=== PATIENT | male | born 1945 | race Caucasian/White ===

== ENCOUNTER → 2017-03-14 | Outpatient (CLI) | payer MEDICARE ==
[~2017-03-14] VITALS: Ht 167.6 cm; Wt 79.4 kg
[~2017-03-14] MED LIST: ALLO15TA PO; ALLO300T; ASPI1TAB PO; BABY81CH; ENAL10TA2; ENAL5TAB PO; NS 1,000 ML IV ONE; PROPOFOL 200 MG/20 ML VIAL As Ordered ONE; RED YEAST RICE; SIMV40TA2; SIMV40TA2 PO; VITA400C29 PO
--- NOTE | 2017-03-14 15:20 | ROOR ---
Patient Name: Juan Oates Procedure Date: 03/14/2017 3:08 PM Date of : 1945 Age: 71 Room: [facility] Gender: Male Note Status: Finalized Procedure: Colonoscopy to Cecum Indications: Colon cancer screening in patient at increased risk: Colorectal cancer in father Providers: Dusty Dukes MD Referring MD: ERASMO ENG JR, MD Requesting Provider: Medicines: Monitored Anesthesia Care Complications: No immediate complications. Procedure: Pre-Anesthesia Assessment: - The heart rate, respiratory rate, oxygen saturations, blood pressure, adequacy of pulmonary ventilation, and response to care were monitored throughout the procedure. The Colonoscope was introduced through the anus and advanced to the cecum, identified by appendiceal orifice and ileocecal valve. The colonoscopy was performed without difficulty. The patient tolerated the procedure well. The quality of the bowel preparation was excellent. Findings: The perianal and digital rectal examinations were normal. Non-bleeding internal hemorrhoids were found during retroflexion. The hemorrhoids were small and Grade I (internal hemorrhoids that do not prolapse). Scattered small-mouthed diverticula were found in the recto-sigmoid colon, sigmoid colon and descending colon. The exam was otherwise without abnormality on direct and retroflexion views. Impression: - Non-bleeding internal hemorrhoids. - Diverticulosis in the recto-sigmoid colon, in the sigmoid colon and in the descending colon. - The examination was otherwise normal on direct and retroflexion views. - No specimens collected. - The exam was otherwise normal to the cecum. Recommendation: - Patient has a contact number available for emergencies. The signs and symptoms of potential delayed complications were discussed with the patient. Return to normal activities tomorrow. Written discharge instructions were provided to the patient. - High fiber diet. - Discharge patient to home. - Continue present medications. - Repeat colonoscopy in 5 years for screening purposes. - Return to referring physician. - The findings and recommendations were discussed with the patient's family. Dusty Dukes MD Dusty Dukes MD 03/14/2017 3:20:16 PM This report has been signed electronically. Number of Addenda: 0 Note Initiated On: 03/14/2017 3:08 PM Estimated Blood Loss: Estimated blood loss: none.
[2017-03-14 15:45] VITALS: BP 143/70
== END | disposition home or self-care (01) ==
LOC: M OPP 13:19
PROVIDERS: ATTEND Internal Medicine Gastroenterology
DX: Z12.11 Encounter for screening for malignant neoplasm of colon (principal); K64.0 First degree hemorrhoids; K57.30 Diverticulosis of large intestine without perforation or abscess without bleeding; Z80.0 Family history of malignant neoplasm of digestive organs; I12.9 Hypertensive chronic kidney disease with stage 1 through stage 4 chronic kidney disease, or unspecified chronic kidney disease; E78.5 Hyperlipidemia, unspecified; N18.9 Chronic kidney disease, unspecified; Z79.82 Long term (current) use of aspirin; Z79.899 Other long term (current) drug therapy

== ENCOUNTER 2018-06-02 21:04 | Emergency (ER) | payer OTHER, MEDICARE ==
[2018-06-02] MEDS ORDERED: ADENOSINE 6MG/2ML INJECTION (J0153) As Ordered ×3 (21:16→21:26)
[2018-06-02] MEDS: ADENOSINE 6MG/2ML INJECTION (J0153) IV ×3 (21:20→21:28)
[2018-06-02] MEDS ORDERED: METOPROLOL 5 MG/5 ML VIAL As Ordered (21:24)
[2018-06-02] MEDS: METOPROLOL 5 MG/5 ML VIAL IV ×2 (21:31→21:44)
[2018-06-02 21:51] LABS: BASO % 0.3 % (0.0-1.0); EOS # 0.1 10^3/uL (0.0-0.50); EOS % 0.9 % (0.0-3.0); HEMATOCRIT 44.7 % (42.0-52.0); HEMOGLOBIN 14.9 g/dl (13.5-17.5); IMMATURE GRANULOCYTE % 0.3 % (0-3.0); LYMPH # 1.3 10^3/uL (1.5-4.5); LYMPH % 18.9 % (24.0-44.0); MEAN CORPUSCULAR HEMOGLOBIN 29.6 pg (27.0-33.0); MEAN CORPUSCULAR HGB CONC 33.3 g/dl (32.0-36.5); MEAN CORPUSCULAR VOLUME 88.7 fl (80.0-96.0); MONO # 0.8 10^3/uL (0.0-0.8); MONO % 12.1 % (0.0-5.0); NEUTROPHILS # 4.7 10^3/uL (1.8-7.7); NEUTROPHILS % 67.5 % (36.0-66.0); PLATELET COUNT, AUTOMATED 176 10^3/uL (150-450); RED BLOOD COUNT 5.04 10^6/uL (4.30-6.10); RED CELL DISTRIBUTION WIDTH 12.3 % (11.5-14.5); WHITE BLOOD COUNT 6.9 10^3/uL (4.0-10.0)
[2018-06-02] MEDS: METOPROLOL TART 50 MG TAB PO (21:52)
[2018-06-02 21:57] LABS: ANION GAP 9 MEQ/L (8-16); BLOOD UREA NITROGEN 34 MG/DL (7-18); CALCIUM LEVEL 9.6 MG/DL (8.8-10.2); CARBON DIOXIDE LEVEL 27 MEQ/L (21-32); CHLORIDE LEVEL 105 MEQ/L (98-107); CPK CREATINE PHOSPHOKINASE 70 U/L (39-308); CREATININE FOR GFR 2.39 MG/DL (0.70-1.30); FREE THYROXINE INDEX 2.6 % (1.4-3.8); GLOMERULAR FILTRATION RATE 28.5 (>42); GLUCOSE, FASTING 110 MG/DL (70-100); POTASSIUM SERUM 3.7 MEQ/L (3.5-5.1); SODIUM LEVEL 141 MEQ/L (136-145); T UPTAKE 32 % (33-40); TROPONIN I 0.05 NG/ML (< 0.10)
[2018-06-02 22:02] LABS: CK-MB VALUE MASS 1.7 NG/ML (<3.6); MB/CK RELATIVE INDEX 2.42 (< OR =4)
[2018-06-02] MEDS ORDERED: METOPROLOL 5 MG/5 ML VIAL IV (22:14)
[2018-06-02] MEDS ORDERED: AMIODARONE 150MG/3ML INJ (J0282) IVP (22:17)
[2018-06-02] MEDS: METOPROLOL TART 25 MG TABLET PO (22:34)
== END 2018-06-03 00:31 | disposition home or self-care (01) ==
LOC: M ED 06-03 00:31
DX: I47.1 Supraventricular tachycardia (principal); I48.91 Unspecified atrial fibrillation; E78.5 Hyperlipidemia, unspecified; N28.9 Disorder of kidney and ureter, unspecified; Z86.73 Personal history of transient ischemic attack (TIA), and cerebral infarction without residual deficits; Z79.899 Other long term (current) drug therapy
CPT/HCPCS: J0153

== ENCOUNTER → 2018-06-11 | Outpatient (REF) | payer OTHER ==
[2018-06-11 18:31] LABS: TOTAL PROTEIN 6.9 GM/DL (6.4-8.2)
[2018-06-11 18:35] LABS: TOTAL PROTEIN,RANDOM URINE 40.5 MG/DL (0.0-12.0); TOTAL PROTEIN,RANDOM URINE 40.7 MG/DL (0.0-12.0); URINE TOTAL PROTEIN 40.5 MG/DL (0-12)
[2018-06-12 12:07] LABS: ALBUMIN 3.94 GM/DL (3.29-5.55); ALBUMIN % 57.1 % (55.8-66.1); ALPHA-1-GLOBULIN % 4.5 % (2.9-4.9); ALPHA-1-GLOBULINS 0.31 GM/DL (0.17-0.41); ALPHA-2-GLOBULINS 0.86 GM/DL (0.42-0.99); ALPHA-2-GLOBULINS % 12.5 % (7.1-11.8); BETA-1-GLOBULINS 0.44 GM/DL (0.28-0.60); BETA-1-GLOBULINS % 6.4 % (4.7-7.2); BETA-2-GLOBULINS 0.35 GM/DL (0.19-0.55); BETA-2-GLOBULINS % 5.1 % (3.2-6.5); GAMMA GLOBULIN % 14.4 % (11.1-18.8); GAMMA GLOBULINS 0.99 GM/DL (0.65-1.58)
[2018-06-13 15:02] LABS: UPEP INTERPRETATION NO M-SPIKE NOTED; URINE VOLUME RANDOM ML
[2018-06-14 00:07] LABS: FREE KAPPA LIGHT CHAINS SERUM 36.3 mg/L (3.3-19.4); FREE LAMBDA LIGHT CHAINS SERUM 30.7 mg/L (5.7-26.3); KAPPA/LAMBDA RATIO SERUM 1.18 (0.26-1.65)
== END ==
LOC: M LAB REF 17:44
DX: N18.4 Chronic kidney disease, stage 4 (severe) (principal); R80.9 Proteinuria, unspecified
CPT/HCPCS: 84165

== ENCOUNTER → 2018-08-13 | Outpatient (REF) | payer OTHER ==
[2018-08-13 14:11] LABS: BACTERIA, URINE AUTO NEGATIVE (NEGATIVE); RBC, URINE AUTO 1 /HPF (0-3); SQUAMOUS EPITHELIAL CELL UR AU 0 /HPF (0-6); WBC, URINE AUTO 3 /HPF (0-3)
[2018-08-13 14:38] LABS: TOTAL PROTEIN,RANDOM URINE 34.9 MG/DL (0.0-12.0)
== END ==
LOC: M LAB REF 12:59
DX: N18.4 Chronic kidney disease, stage 4 (severe) (principal)
CPT/HCPCS: 84156

== ENCOUNTER → 2018-09-10 | Outpatient (REF) | payer OTHER ==
[2018-09-10 19:28] LABS: HEMATOCRIT 41.1 % (42.0-52.0); HEMOGLOBIN 13.5 g/dl (13.5-17.5); MEAN CORPUSCULAR HGB CONC 32.8 g/dl (32.0-36.5); MEAN CORPUSCULAR VOLUME 88.4 fl (80.0-96.0); PLATELET COUNT, AUTOMATED 166 10^3/uL (150-450); RED BLOOD COUNT 4.65 10^6/uL (4.30-6.10); RED CELL DISTRIBUTION WIDTH 15.2 % (11.5-14.5); WHITE BLOOD COUNT 4.9 10^3/uL (4.0-10.0)
[2018-09-10 19:40] LABS: ALBUMIN 3.8 GM/DL (3.2-5.2); ALBUMIN/GLOBULIN RATIO 1.19 (1.00-1.93); ALKALINE PHOSPHATASE 84 U/L (45-117); ALT/SGPT 29 U/L (12-78); ANION GAP 7 MEQ/L (8-16); AST/SGOT 28 U/L (7-37); BILIRUBIN,TOTAL 0.6 MG/DL (0.2-1.0); BLOOD UREA NITROGEN 34 MG/DL (7-18); CALCIUM LEVEL 9.6 MG/DL (8.8-10.2); CARBON DIOXIDE LEVEL 28 MEQ/L (21-32); CHLORIDE LEVEL 105 MEQ/L (98-107); CREATININE FOR GFR 2.19 MG/DL (0.70-1.30); GLOMERULAR FILTRATION RATE 31.6 (>42); GLUCOSE, FASTING 141 MG/DL (70-100); POTASSIUM SERUM 4.2 MEQ/L (3.5-5.1); SODIUM LEVEL 140 MEQ/L (136-145)
== END ==
LOC: M LABDRAWC 18:04
DX: I11.0 Hypertensive heart disease with heart failure (principal); I50.9 Heart failure, unspecified
CPT/HCPCS: 80053

== ENCOUNTER → 2018-09-30 | Outpatient (REF) | payer OTHER ==
[2018-09-30 12:40] LABS: URIC ACID 6.5 MG/DL (3.5-7.2)
== END ==
LOC: M LAB REF 11:54
DX: N18.3 Chronic kidney disease, stage 3 (moderate) (principal)
CPT/HCPCS: 84550

== ENCOUNTER → 2018-11-07 | Outpatient (REF) | payer MEDICARE, OTHER ==
[~2018-11-07] MED LIST changes: +LOPR1TAB6 PO; -NS 1,000 ML IV ONE; -PROPOFOL 200 MG/20 ML VIAL As Ordered ONE; +VITA-110 PO; -VITA400C29 PO; +XARE15TA PO
[2018-11-07 20:00] LABS: ALBUMIN 3.5 GM/DL (3.2-5.2); CALCIUM LEVEL 9.2 MG/DL (8.8-10.2); CREATININE FOR GFR 2.26 MG/DL (0.70-1.30); GLOMERULAR FILTRATION RATE 30.4 (>42); PHOSPHORUS LEVEL 4.2 MG/DL (2.5-4.9); POTASSIUM SERUM 4.5 MEQ/L (3.5-5.1)
== END ==
LOC: M LABDRAWC 18:52
PROVIDERS: ATTEND Internal Medicine Cardiovascular Disease
DX: I50.42 Chronic combined systolic (congestive) and diastolic (congestive) heart failure (principal); N19 Unspecified kidney failure

== ENCOUNTER 2019-06-20 03:31 | Emergency (ER) | payer MEDICARE ==
[~2019-06-20] VITALS: Ht 167.6 cm; Wt 71.4 kg
[~2019-06-20 03:31] MED LIST changes: -ALLO15TA PO; +ALLO300T2 PO; -ASPI1TAB PO; +ASPI81TA26 PO
[2019-06-20] MEDS ORDERED: ASPI81TA85 PO (03:45)
[2019-06-20] MEDS ORDERED: BISO5TAB9 PO (03:45)
[2019-06-20] MEDS ORDERED: DIGO0.12 PO (03:45)
[2019-06-20] MEDS ORDERED: AUGM875T28 PO ×2 (03:45→06:21)
[2019-06-20] MEDS ORDERED: ATOR80TA59 PO (03:45)
[2019-06-20 04:21] LABS: BASO % 0.5 % (0.0-1.0); EOS # 0.1 10^3/uL (0.0-0.50); HEMATOCRIT 42.3 % (42.0-52.0); HEMOGLOBIN 13.4 g/dl (13.5-17.5); MEAN CORPUSCULAR HEMOGLOBIN 29.3 pg (27.0-33.0); MEAN CORPUSCULAR HGB CONC 31.7 g/dl (32.0-36.5); MEAN CORPUSCULAR VOLUME 92.6 fl (80.0-96.0); MONO # 0.4 10^3/uL (0.0-0.8); MONO % 6.8 % (0.0-5.0); NEUTROPHILS # 4.5 10^3/uL (1.8-7.7); NEUTROPHILS % 74.4 % (36.0-66.0); PLATELET COUNT, AUTOMATED 149 10^3/uL (150-450); RED BLOOD COUNT 4.57 10^6/uL (4.30-6.10)
[2019-06-20 04:32] LABS: INR 2.32; PROTHROMBIN TIME 25.3 SECONDS (11.8-14.0)
[2019-06-20 05:01] LABS: CALCIUM LEVEL 8.6 MG/DL (8.8-10.2); CREATININE FOR GFR 2.22 MG/DL (0.70-1.30); DIGOXIN LEVEL 0.3 NG/ML (0.5-2.0); POTASSIUM SERUM 4.6 MEQ/L (3.5-5.1)
[2019-06-20] MEDS ORDERED: SILVER NITRATE APPLICATOR As Ordered ONE (08:23)
[2019-06-20 09:18] VITALS: BP 116/70
== END 2019-06-20 09:19 | disposition home or self-care (01) ==
LOC: M ED 03:31
DX: R04.0 Epistaxis (principal); N18.9 Chronic kidney disease, unspecified; I48.91 Unspecified atrial fibrillation; Z79.899 Other long term (current) drug therapy; Z79.82 Long term (current) use of aspirin; Z79.01 Long term (current) use of anticoagulants

== ENCOUNTER 2019-07-03 12:01 | Day surgery (SDC) | payer MEDICARE ==
[~2019-07-03] VITALS: Ht 167.6 cm; Wt 70.8 kg
[~2019-07-03 12:01] MED LIST changes: +ASPI81TA85 PO; +ATOR80TA59 PO; +AUGM875T28 PO; +BISO5TAB9 PO; +DIGO0.12 PO
[2019-07-03] MEDS ORDERED: NEOSPORIN TOP OINT 15GM As Ordered ONE (12:23)
[2019-07-03] MEDS ORDERED: MUPI2OI (12:33)
[2019-07-03] MEDS ORDERED: ROCURONIUM BROMIDE 50 MG/5 ML VIAL As Ordered ONE (12:41)
[2019-07-03] MEDS ORDERED: LIDOCAINE 2% INJ 100 MG/5 ML SDV (FOR ANES.) As Ordered ONE (12:41)
[2019-07-03] MEDS ORDERED: PROPOFOL 200 MG/20 ML VIAL As Ordered ONE (12:41)
[2019-07-03] MEDS ORDERED: fentaNYL 100 MCG/2 ML INJECTION (J3010) As Ordered ONE ×2 (12:43→14:22)
[2019-07-03] MEDS ORDERED: ONDANSETRON 4MG/2ML VIAL (J2405) As Ordered ONE (12:44)
[2019-07-03] MEDS ORDERED: dexameTHASONE 4 MG/ML 1ML VIAL (J1100) As Ordered ONE (13:15)
[2019-07-03] MEDS ORDERED: EPINEPHrine INJ 1 MG/ML 1ML AMP As Ordered ONE (13:25)
[2019-07-03] MEDS ORDERED: METHYLENE BLUE 0.5% (5MG/ML) 10 ML AMP (PROVAYBLUE)(Q9968 PER 1MG) As Ordered ONE (13:26)
[2019-07-03] MEDS ORDERED: EPINEPHrine 1MG/ML INJ 30ML MD-VIAL As Ordered ONE (13:26)
[2019-07-03] MEDS ORDERED: SUGAMMADEX SODIUM 500 MG/5 ML VIAL (BRIDION) As Ordered ONE (13:31)
[2019-07-03] MEDS ORDERED: LIDOCAINE W/EPINEPHRINE 1% 20ML VIAL As Ordered ONE (13:36)
[2019-07-03] MEDS: fentaNYL 100 MCG/2 ML INJECTION (J3010) IV PRN ×4 (14:24→14:39)
--- NOTE | 2019-07-03 14:24 | REP ---
DATE OF PROCEDURE: 07/03/2019 PREPROCEDURE DIAGNOSIS: Recurrent epistaxis. POSTPROCEDURE DIAGNOSIS: Recurrent epistaxis. PROCEDURE: Septoplasty, right nasal cautery, endoscopic. SURGEON: Dr. Gerry Catalan. MANAGER GRAPHIC: ANESTHESIA: General. FINDINGS: There was bleeding in the area superior. The roof of the nose on the right side as well as along the septum. I could not see any bleeding posteriorly. DESCRIPTION OF PROCEDURE: Under general anesthesia with the patient intubated, the patient was prepped and draped in the usual manner. I used pledgets soaked with epinephrine 1:100,000. I examined the nose. The above findings were seen. In order to get a good look at the septum, I made an incision anterior on the left side and elevated the subperichondrial plane and periosteal plane. The septum was markedly deviated towards the left side anteriorly and the right side posteriorly. I used the caudal knife to section the cartilage anteriorly. I did not remove any cartilage and just repositioned to the center. I took out portions of the ethmoid plate and vomer which were deviated. Once this was done, the septum was straight. I closed the wound with #4-0 chromic. I then examined the nose again on the right side. I cauterized the areas superiorly along the septum and then posteriorly. At the end of the procedure everything looked very good. Patient tolerated the procedure well. Patient extubated and transferred to the recovery room in excellent condition. ESTIMATED BLOOD LOSS: 50 mL.
[2019-07-03] MEDS ORDERED: METOCLOPRAMIDE INJ 10MG/2ML VIAL (J2765) IV PRN (14:30)
[2019-07-03] MEDS ORDERED: LR 1,000 ML IV SCH ×2 (14:30)
[2019-07-03] MEDS ORDERED: ACETAMINOPH W/CODEINE #3 TAB UD PO PRN (14:30)
[2019-07-03] MEDS ORDERED: ONDANSETRON 4MG/2ML VIAL (J2405) IV PRN (14:30)
[2019-07-03 15:40] VITALS: BP 140/88
== END 2019-07-03 15:50 | disposition home or self-care (01) ==
LOC: M SDC 12:01
PROVIDERS: ATTEND Otolaryngology
DX: R04.0 Epistaxis (principal); I10 Essential (primary) hypertension; I48.91 Unspecified atrial fibrillation; Z79.82 Long term (current) use of aspirin; Z79.01 Long term (current) use of anticoagulants; Z79.899 Other long term (current) drug therapy
CPT/HCPCS: 30520; 31238; 88300; J1100; J2405; J3010; Q9968

== ENCOUNTER → 2019-07-09 | Outpatient (CLI) | payer MEDICARE ==
[~2019-07-09] MED LIST changes: +BISO5TAB14 PO; -BISO5TAB9 PO; -DIGO0.12 PO; +DIGO0.123 PO; +MUPI2OI; -SIMV40TA2 PO; +SIMV40TA20 PO
[2019-07-09 14:06] LABS: BASO % 0.5 % (0.0-1.0); EOS # 0.2 10^3/uL (0.0-0.5); HEMATOCRIT 33.1 % (42.0-52.0); HEMOGLOBIN 10.5 g/dl (13.5-17.5); LYMPH # 1.2 10^3/uL (1.5-5.0); LYMPH % 20.8 % (24.0-44.0); MEAN CORPUSCULAR HEMOGLOBIN 29.3 pg (27.0-33.0); MEAN CORPUSCULAR HGB CONC 31.7 g/dl (32.0-36.5); MEAN CORPUSCULAR VOLUME 92.5 fl (80.0-96.0); MONO # 0.7 10^3/uL (0.0-0.8); MONO % 12.4 % (0.0-5.0); NEUTROPHILS # 3.5 10^3/uL (1.5-8.5); NEUTROPHILS % 62.4 % (36.0-66.0); PLATELET COUNT, AUTOMATED 202 10^3/uL (150-450); RED BLOOD COUNT 3.58 10^6/uL (4.30-6.10); WHITE BLOOD COUNT 5.7 10^3/uL (4.0-10.0)
[2019-07-09 14:18] LABS: INR 1.03; PROTHROMBIN TIME 13.2 SECONDS (11.8-14.0)
[2019-07-09 14:19] LABS: PARTIAL THROMBOPLASTIN TIME 27.7 SECONDS (25.0-38.4)
== END ==
LOC: M LAB 13:06
PROVIDERS: ATTEND Otolaryngology
DX: R04.0 Epistaxis (principal)

== ENCOUNTER → 2019-10-07 | Outpatient (REF) | payer MEDICARE ==
[~2019-10-07] MED LIST changes: -BISO5TAB14 PO; +BISO5TAB9 PO; +DIGO0.12 PO; -DIGO0.123 PO
== END ==
LOC: M LAB REF 13:36
PROVIDERS: ATTEND Internal Medicine
DX: I48.20 Chronic atrial fibrillation, unspecified (principal)

== ENCOUNTER → 2020-10-11 | Outpatient (CLI) | payer MEDICARE ==
[~2020-10-11] MED LIST changes: -ASPI81TA85 PO; +ASPI81TA86 PO; +BISO5TAB14 PO; -BISO5TAB9 PO; -DIGO0.12 PO; +DIGO0.123 PO; +ENAL5TA PO; -ENAL5TAB PO
--- NOTE | 2020-10-11 16:06 | REP ---
INDICATION: CHEST PAIN. COMPARISON: Comparison chest x-ray August 25, 2015. TECHNIQUE: Two views.. FINDINGS: The lungs are well inflated and free of infiltrate. The pleural angles are sharp. The heart size is normal. Pulmonary vasculature is not increased. No significant bony abnormality is seen. 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 There does appear to be some pleural calcification along the dome of 1 of the diaphragms on the lateral film unchanged. This may reflect previous asbestos exposure. There are degenerative changes in the thoracic spine. IMPRESSION: No active cardiopulmonary disease seen.. <Electronically signed by Cecil Al > 10/11/20 [id number]
== END ==
LOC: M RAD 11:55
PROVIDERS: ATTEND Internal Medicine
DX: R07.9 Chest pain, unspecified (principal)

== ENCOUNTER → 2020-10-15 | Outpatient (REF) | payer MEDICARE | LOC: M LAB REF 16:17 | PROVIDERS: ATTEND Internal Medicine | DX: I48.21 Permanent atrial fibrillation (principal) ==

== ENCOUNTER → 2020-11-02 | Outpatient (REF) | payer MEDICARE ==
[2020-11-02 16:57] LABS: URIC ACID 5.8 MG/DL (3.5-7.2)
[2020-11-02 17:09] LABS: PTH INTACT 36.7 PG/ML (18.5-88.0)
== END ==
LOC: M LAB REF 16:11
PROVIDERS: ATTEND Internal Medicine
DX: E79.0 Hyperuricemia without signs of inflammatory arthritis and tophaceous disease (principal)

== ENCOUNTER 2020-11-12 17:26 | Day surgery (SDC) | payer MEDICARE ==
[~2020-11-12] VITALS: Ht 167.6 cm; Wt 70.2 kg
[2020-11-12 18:21] LABS: BASO % 0.3 % (0.0-1.0); EOS % 0.3 % (0.0-3.0); HEMATOCRIT 44.3 % (42.0-52.0); LYMPH # 0.5 10^3/uL (1.5-5.0); LYMPH % 9.2 % (24.0-44.0); MEAN CORPUSCULAR HEMOGLOBIN 28.5 pg (27.0-33.0); MEAN CORPUSCULAR HGB CONC 31.6 g/dl (32.0-36.5); MEAN CORPUSCULAR VOLUME 90.2 fl (80.0-96.0); MONO # 0.4 10^3/uL (0.0-0.8); NEUTROPHILS # 4.9 10^3/uL (1.5-8.5); NEUTROPHILS % 83.9 % (36.0-66.0); PLATELET COUNT, AUTOMATED 147 10^3/uL (150-450); RED BLOOD COUNT 4.91 10^6/uL (4.30-6.10); WHITE BLOOD COUNT 5.9 10^3/uL (4.0-10.0)
[2020-11-12] MEDS ORDERED: VITA200015 PO (18:45)
[2020-11-12 19:06] LABS: ALBUMIN 3.9 GM/DL (3.2-5.2); CALCIUM LEVEL 9.1 MG/DL (8.8-10.2); CREATININE FOR GFR 2.47 MG/DL (0.70-1.30); DIGOXIN LEVEL 0.4 NG/ML (0.5-2.0); GLOMERULAR FILTRATION RATE 27.3 (>42); PHOSPHORUS LEVEL 4.2 MG/DL (2.5-4.9); POTASSIUM SERUM 5.1 MEQ/L (3.5-5.1)
[2020-11-12] MEDS ORDERED: D31000TA2 PO (19:11)
[2020-11-12] MEDS ORDERED: ZYLO300T6 PO (19:11)
[2020-11-12] MEDS ORDERED: LIDOCAINE 1% SDV 30ML VIAL As Ordered ONE (19:52)
[2020-11-12] MEDS ORDERED: ISOVUE-300 61% 50ML VIAL As Ordered ONE (19:53)
[2020-11-12] MEDS ORDERED: propofoL 200 MG/20 ML VIAL As Ordered ONE ×2 (19:59→21:06)
[2020-11-12] MEDS ORDERED: LIDOCAINE 2% 100MG/5ML SDV (FOR ANES.) As Ordered ONE (19:59)
[2020-11-12] MEDS ORDERED: fentaNYL 100 MCG/2 ML INJECTION (J3010) As Ordered ONE (19:59)
[2020-11-12] MEDS ORDERED: MIDAZOLAM INJ 2MG/2ML VIAL (J2250 PER 1MG) As Ordered ONE (19:59)
[2020-11-12] MEDS ORDERED: ceFAZolin 2 GM/D5W 50 ML IV BAG (J0690 PER 500MG) As Ordered ONE (20:28)
[2020-11-12] MEDS ORDERED: DIGOXIN 0.125 MG TAB PO SCH (21:00)
[2020-11-12] MEDS ORDERED: ATORVASTATIN 20 MG TAB PO SCH (21:00)
[2020-11-12] MEDS ORDERED: bisoproloL fumarate 5 MG TAB PO SCH (21:00)
[2020-11-12] MEDS ORDERED: PHENYLephrine HCL 500 MCG/5 ML (100MCG/ML) SYRINGE (J2370) As Ordered ONE (21:10)
[2020-11-12] MEDS ORDERED: traMADol 50 MG TAB PO PRN (21:30)
[2020-11-12] MEDS ORDERED: ACETAMINOPHEN TAB 650MG DOSE (2X325MG) PO PRN (21:30)
[2020-11-12 21:45] VITALS: BP 141/89
[2020-11-12] MEDS ORDERED: bisoproloL fumarate 5 MG TAB As Ordered ONE (21:48)
[2020-11-12 22:15] VITALS: BP 141/89
[2020-11-12] MEDS ORDERED: PILL CUTTER 1 EACH XX PRN (22:15)
[2020-11-12] MEDS ORDERED: fentaNYL 100 MCG/2 ML INJECTION (J3010) IV PRN (22:30)
[2020-11-12] MEDS ORDERED: ONDANSETRON 4MG/2ML VIAL IV PRN (22:30)
[2020-11-12] MEDS ORDERED: PERCOCET 5MG/325MG TAB PO PRN (22:30)
[2020-11-12] MEDS ORDERED: LR 1,000 ML IV SCH (22:30)
[2020-11-12 22:45] VITALS: BP 135/85
[2020-11-12 23:45] VITALS: BP 138/81
[2020-11-13 00:45] VITALS: BP 131/85
[2020-11-13 01:45] VITALS: BP 128/80
[2020-11-13] MEDS: ceFAZolin SOD 1 GM in D5W MINI-BAG PLUS 50 ML IV SCH ×2 (02:43→10:42)
[2020-11-13 02:45] VITALS: BP 135/82
[2020-11-13 04:00] VITALS: BP 134/79
[2020-11-13 08:00] VITALS: BP 148/76
--- NOTE | 2020-11-13 08:00 | REP ---
INDICATION: Post pacemaker implant COMPARISON: 11/12/2020 TECHNIQUE: PA and lateral. FINDINGS: The mediastinum and cardiac silhouette are normal. Newly placed pacemaker in stable position. The lung hills are clear and without acute consolidation, effusion, or pneumothorax. The skeletal structures are intact and normal. IMPRESSION: No acute cardiopulmonary process. <Electronically signed by Sebas Granado > 11/13/20 0753
--- NOTE | 2020-11-13 08:09 | REP ---
INDICATION: R/O PNEUMO. WILL CALL WHEN READY COMPARISON: 10/11/2020 TECHNIQUE: Portable AP view of the chest FINDINGS: Pacemaker in satisfactory position. No associated pneumothorax. Lung hills are clear and without consolidation or effusion. Stable cardiomegaly noted. Skeletal structures are intact. IMPRESSION: No acute cardiopulmonary process appreciated. <Electronically signed by Sebas Granado > 11/13/20 0808
[2020-11-13] MEDS ORDERED: allopurinoL 300 MG TAB PO SCH (09:00)
--- NOTE | 2020-11-13 11:32 | ECGEPIP ---
[facility] Test Date: 2020-11-12 Pat Name: ALEXEI CARR Department: Room: [place] [address] Gender: Male Surveyor Rod Helper: : 1945 Requested By: Juarez Coleman Order Number: [id number] Reading MD: Juarez Coleman Measurements Intervals [place] Rate: 76 P: MO: 0 QRS: 216 QRSD: 153 T: 0 QT: 446 QTc: 503 Interpretive Statements Underlying atrial fibrillation with controlled ventricular response Marked rightward axis consistent with left posterior hemiblock Right bundle branch block Could not rule out prior Inferoposterior wall myocardial infraction Slower rate than 06/02/18 Electronically Signed on 11-13-2020 11:31:38 EST by Juarez Coleman
--- NOTE | 2020-11-13 11:36 | ECGEPIP ---
Test Date: 2020-11-13 Pat Name: ALEXEI CARR Department: Room: [place] [address] Gender: Male Transportation Consultant: NILDA : 1945 Requested By: Juarez Coleman Order Number: [id number] Reading MD: Juarez Coleman Measurements Intervals [place] Rate: 70 P: VT: 0 QRS: -90 QRSD: 153 T: -7 QT: 448 QTc: 484 Interpretive Statements Underlying atrial fibrillation with controlled ventricular response Isolated PVC Marked rightward axis consider left posterior hemiblock Right bundle branch block Rule out prior inferoposterior TN. No change from 11/12/20 Electronically Signed on 11-13-2020 11:36:25 EST by Juarez Coleman
[2020-11-13 12:00] VITALS: BP 111/73
[2020-11-13] MEDS ORDERED: BISO5TAB14 PO (12:37)
[2020-11-13] MEDS ORDERED: bisoproloL fumarate 5 MG TAB PO SCH ×2 (21:00)
--- NOTE | 2020-11-14 16:21 | RO ---
OPERATIVE NOTE DATE OF OPERATION: 11/12/2020 PREOPERATIVE DIAGNOSIS: 1. Complete heart block. 2. Permanent atrial fibrillation with intermittent rapid ventricular response, requiring negative chronotropic therapy. Heart failure (diastolic dysfunction/chronic). 3. Hypertensive heart disease (benign with heart failure) POSTOPERATIVE DIAGNOSIS: 1. Complete heart block. 2. Permanent atrial fibrillation with intermittent rapid ventricular response, requiring negative chronotropic therapy. Heart failure (diastolic dysfunction/chronic). 3. Hypertensive heart disease (benign with heart failure) TITLE OF PROCEDURE: Implantation of single chamber of ventricular demand pacemaker. IMPLANTING ASSISTANT EDITOR: Juarez Coleman MD ANESTHESIOLOGIST: Dr. Anna TYPE OF ANESTHESIA: Monitored local anesthesia. CLINICAL SUMMARY: This 75-year-old, , resident of [place], [place]. He is well known to my cardiology practice having a history of ischemic, hypertensive and valvular heart disease complicated by abnormal electrocardiogram (left posterior hemiblock and right bundle branch block) and initially paroxysmal atrial fibrillation, which has now become permanent. He has had Holter monitors documenting "tachybrady" response to his atrial tachyarrhythmia requiring negative chronotropic therapy (bisoprolol and digoxin). We have monitored his conduction problem closely and he had been free of significant bradyarrhythmia on his last examination, October 11, 2020. However over the course of the past two weeks, he has had increasing episodes of weakness/dizziness and earlier today had a near syncopal spell with profound pallor and diaphoresis. His family brought him to our office and electrocardiogram (EKG) showed complete heart block with junctional escape rhythm and 46 beats per minute. He was free of any other cardiovascular complaints. His current surgical pacer implant was arranged. The indication, procedure and potential risk were discussed with the patient and his who understood and agreed. Pleasant, bright, elderly male lying comfortably flat with heart rate 46 beats per minute and regular, blood pressure 130/62 supine, 116/56 sitting. Respiratory rate was 16. Body mass index (BMI) was 24.9, slight pallor, but no cyanosis, no oral moisture. Trachea midline. Neck veins were at the level of the sternal angle. Slightly increased anterior posterior chest diameter with slightly reduced chest expansion with fair air entry with both lung hills with no abnormal adventitious sounds. Apical impulse lateral to the midclavicular line, 5th intercostal space. S1 and S2 were variable with persistent splitting of S2. He has a somewhat raspy systolic ejection murmur related to his mild aortic stenosis. His carotid upstroke was normal with variable false volume related to his arrhythmia. Peripheral pulses were symmetrical and normal. No current pedal edema. His abdomen was soft. Electrocardiogram (EKG) showed underlying atrial fibrillation with slow ventricular response averaging 46 beats per minute and regular consistent with complete heart block. Extreme right axis consistent with left posterior hemiblock and right bundle branch block as before. Primary repolarization abnormalities, but no change from October 11, 2020. Complete blood count was normal. Hemoglobin 14. Normal white blood cell count. Platelet count was also normal 147,000. His COVID test was negative. Electrolytes were imbalanced with potassium 5.1. His BUN was elevated at 44, creatinine elevated at 2.47, random glucose 123, digoxin level was 0.4. Pro-BNP elevated at 9980. DESCRIPTION OF THE PROCEDURE: Following informed consent with the patient in the fasting state, having received Ancef 2 gm IV premedication, he was taken to the operating theatre. Numerous skin electrodes were applied to facilitate continuous electrographic monitoring. The left subclavian region was prepped and draped in the usual fashion and the skin was infiltrated with 1% Xylocaine. The left subclavian vein was catheterized using a micropuncture technique. A 5 cm linear incision was then made several cm below and parallel to the left clavicle. A single bipolar screw in active fixation steroid eluting lead was then position to the right ventricular apex under fluoroscopic and electrocardiographic control. The right ventricular lead ([employer], model number XAM6094C/58, serial number [id number]) measurements were focal and stimulation threshold 0.7 V/0.4 ms/impedance 505 ohms. R wave amplitude measured 7.0 mV. This lead was secured in position with sleeve sutured at its insertion site. It was then connected to a single chamber pulse generator that was MRI compatible ([employer], model number UN7727, serial number [id number]) and appropriate VVI pacing was documented. The pulse generator was then placed in the pocket and secured into position with a suture through the upper right hand corner of the epoxy header. The subcutaneous tissue was approximated using a running chromic suture. Skin was closed using kristal. A dry dressing was applied. The patient was returned to the recovery room in good condition. No apparent complications. Estimated blood loss less than 5 ml Postoperative electrocardiogram (EKG) confirmed appropriate pacer sensing and pacing, underlying QRS complexes remain extreme rightward axis consistent with left posterior hemiblock and right bundle branch block. We will now be able to safely resume his low dose bisoprolol and dose adjusted digoxin therapy. A portable upright chest x-ray showed appropriate lead position with no pneumothorax. Our plan is to monitor him in telemetry overnight and he will be receiving an additional 3 doses of Ancef IV q.h.s. We anticipate his discharge tomorrow morning.
== END 2020-11-13 15:10 | disposition home or self-care (01) ==
LOC: M ED 17:26 → M SDC 17:27 → M ED INP 21:17 → M PCU 22:10 → M SDC 11-13 15:10
PROVIDERS: ATTEND Internal Medicine Cardiovascular Disease
DX: I44.2 Atrioventricular block, complete (principal); I48.21 Permanent atrial fibrillation; I50.32 Chronic diastolic (congestive) heart failure; I11.0 Hypertensive heart disease with heart failure; E78.49 Other hyperlipidemia; I25.10 Atherosclerotic heart disease of native coronary artery without angina pectoris; Z86.73 Personal history of transient ischemic attack (TIA), and cerebral infarction without residual deficits; Z79.01 Long term (current) use of anticoagulants; Z79.82 Long term (current) use of aspirin; Z79.899 Other long term (current) drug therapy
CPT/HCPCS: 33207; 71045; 71046; 76000; 80069; 80162; 83880; 85025; 93005; 93041; 94760; 96365; 96366; 99285; C1786; C1898; J0690; J2250; J2370; J3010; U0002

== ENCOUNTER → 2021-04-18 | Outpatient (REF) | payer MEDICARE ==
[~2021-04-18] MED LIST changes: +D31000TA2 PO; +VITA200015 PO; +ZYLO300T6 PO
[2021-04-18 19:02] LABS: CREATININE FOR GFR 2.21 MG/DL (0.70-1.30); POTASSIUM SERUM 4.2 MEQ/L (3.5-5.1)
[2021-04-18 19:06] LABS: BASO % 0.8 % (0.0-1.0); EOS # 0.1 10^3/uL (0.0-0.5); EOS % 1.9 % (0.0-3.0); HEMATOCRIT 44.5 % (42.0-52.0); HEMOGLOBIN 13.9 g/dl (13.5-17.5); LYMPH # 1.1 10^3/uL (1.5-5.0); LYMPH % 21.2 % (24.0-44.0); MEAN CORPUSCULAR HEMOGLOBIN 28.7 pg (27.0-33.0); MEAN CORPUSCULAR HGB CONC 31.2 g/dl (32.0-36.5); MEAN CORPUSCULAR VOLUME 91.9 fl (80.0-96.0); MONO # 0.5 10^3/uL (0.0-0.8); MONO % 8.6 % (2.0-8.0); NEUTROPHILS # 3.5 10^3/uL (1.5-8.5); NEUTROPHILS % 66.9 % (36.0-66.0); PLATELET COUNT, AUTOMATED 145 10^3/uL (150-450); RED BLOOD COUNT 4.84 10^6/uL (4.30-6.10); WHITE BLOOD COUNT 5.2 10^3/uL (4.0-10.0)
== END ==
LOC: M LABDRAWC 18:16
PROVIDERS: ATTEND Internal Medicine Cardiovascular Disease
DX: R06.02 Shortness of breath (principal); R42 Dizziness and giddiness

== ENCOUNTER → 2021-04-25 | Outpatient (REF) | payer MEDICARE ==
[2021-04-25 18:29] LABS: DIGOXIN LEVEL 0.6 NG/ML (0.5-2.0)
== END ==
LOC: M LAB REF 16:32
PROVIDERS: ATTEND Internal Medicine
DX: M10.9 Gout, unspecified (principal); I48.21 Permanent atrial fibrillation

== ENCOUNTER → 2021-07-12 | Outpatient (REF) | payer MEDICARE ==
[2021-07-12 18:54] LABS: MAGNESIUM LEVEL 2.2 MG/DL (1.8-2.4)
== END ==
LOC: M LAB REF 17:41
PROVIDERS: ATTEND Internal Medicine Nephrology
DX: N18.4 Chronic kidney disease, stage 4 (severe) (principal); R31.9 Hematuria, unspecified; Z12.5 Encounter for screening for malignant neoplasm of prostate
CPT/HCPCS: 83735; G0103

== ENCOUNTER → 2021-07-25 | Outpatient (CLI) | payer MEDICARE | LOC: M RAD 13:13 | PROVIDERS: ATTEND Internal Medicine Nephrology | DX: N18.32 Chronic kidney disease, stage 3b (principal) ==

== ENCOUNTER → 2021-09-17 | Outpatient (CLI) | payer MEDICARE | LOC: M LABSMTC 09:57 | PROVIDERS: ATTEND Anesthesiology | DX: Z01.818 Encounter for other preprocedural examination (principal); Z11.52 Encounter for screening for COVID-19 ==

== ENCOUNTER → 2021-09-20 | Outpatient (REF) | payer MEDICARE | LOC: M LAB REF 16:50 | PROVIDERS: ATTEND Nurse Practitioner Family | DX: N18.4 Chronic kidney disease, stage 4 (severe) (principal); Z12.5 Encounter for screening for malignant neoplasm of prostate; I50.42 Chronic combined systolic (congestive) and diastolic (congestive) heart failure ==

== ENCOUNTER 2021-09-22 06:01 | Day surgery (SDC) | payer MEDICARE ==
[~2021-09-22] VITALS: Ht 167.6 cm; Wt 71.3 kg
[~2021-09-22 06:01] MED LIST changes: +CYCLOPENTOLATE 1% OPHTH SOLN 2 ML BTL OD SCH; +FLURBIPROFEN 0.03% OPHTH SOLN 2.5 ML OD SCH; +PHENYLEPHRINE 2.5% OPHTH SOL 2ML OD SCH; +TETRACAINE 0.5% OPHTH SOLN 4ML OD SCH
--- OUTSIDE RECORDS SUMMARY | 2021-09-22 06:06 | CCD | Continuity of Care Document ---
Author Author Juan COLEMAN MD Organization Unknown Address [place] [address] Phone [phone] Care Team Providers Care Social Worker Clinical Name Role Phone Aicha Sadler NP AUTM [phone] Jhony ARSHAD MD, Carroll F AUTM Leilani Simpson MD AUTM [phone] Armin Simpson MD AUTM [phone] AUTM [phone] Gerry Catalan MD AUTM [phone] Abhijeet Westbrook MD AUTM [phone] Billy Mendez MD AUTM [phone] Problems Active Problems Provider Date Persistent atrial fibrillation Juarez Coleman MD Onset: Electrocardiogram abnormal Juarez Coleman MD Onset: 2017 Aortic valve disorder Juarez Coleman MD Onset: 06/04/2018 Mitral valve disorder Juarez Coleman MD Onset: 06/04/2018 Benign hypertensive heart disease without congestive h eart failure Juarez Coleman MD Onset: 06/04/2018 Hypertensive chronic kidney disease with stage 1 through stage 4 chronic kidney disease, or unspecified chronic kidney disease Juarez Coleman MD Onset: 06/04/2018 Tachycardia-induced cardiomyopathy Juarez Coleman MD Onset : 06/04/2018 Hypertensive heart failure Juarez Coleman MD Onset: 2017 Paroxysmal atrial fibrillation Juarez Coleman MD Onset: History of myocardial infarction Juarez Coleman MD Onset: 08/08/2018 Chronic combined systolic and diastolic heart failure Juarez Coleman MD Onset: 08/08/2018 First degree atrioventricular block Juarez Coleman MD Onse t: 11/12/2018 Chronic diastolic heart failure Juarez Coleman MD Onset: 0 03/13/2019 Chronic atrial fibrillation Juarez Coleman MD Onset: 06/13 Right bundle branch block Juarez Coleman MD Onset: 019 Permanent atrial fibrillation Juarez Coleman MD Onset: Chest pain Juarez Coleman MD Onset: 10/11/2020 Dizziness and giddiness Juarez Coleman MD Onset: Right bundle branch block AND left anterior fascicular block Juarez Coleman MD Onset: 11/12/2020 Complete atrioventricular block Juarez Coleman MD Onset: 0 11/12/2020 Dyspnea Juarez Coleman MD Onset: 11/25/2020 Atrioventricular block Juarez Coleman MD Onset: 11/25/2020 Primary idiopathic hypertrophic cardiomyopathy Jaurez chan MD Onset: 04/29/2021 Social History Type Date Description Comments Sex Unknown ETOH Use Does not consume alcohol Tobacco Use Start: Unknown Patient has never smoked Exercise Type/Frequency General Activities Daily Exercise Type/Frequency Does yardwork daily Exercise Type/Frequency Farming Cuts Hay etc Exercise Type/Frequency Does gardening 4 times a week Exercise Limitations Fatigue Exercise Limitations Shortness Of Breath Allergies and adverse reactions Description No Known Drug Allergies Medications Active Medications SIG Qnty Indications Ordering Provide r Date Bisoprolol Fumarate 5mg Tablets 1 by mouth every day I48.0 Juarez Coleman MD 11/24/2020 Vitamin D3 50mcg (1999 Ut) Capsule s 1 by mouth Sunday, Sunday and Sunday Unknown 11/02/2019 Digoxin 125mcg Tablets 1 by mouth mondays, wednesdays and fridays only 48tabs Juarez Coleman MD 0 07/17/2019 Atorvastatin Calcium 80mg Tablets 1 by mouth every night at bedtime 90tabs I25.10 Juarez Coleman MD 08/08/2018 Xarelto 15mg Tablets 1 tab by mouth every day with evening meal Unknown 06/03/2018 Allopurinol 300mg Tablets 1/2 by mouth every day Unknown 06/03/2018 Immunizations Description No Information Available Vital Signs Date Vital Result Comment 08/31/2021 9:38am Weight 154.00 lb Home Weight 152lb Height 66 inches 5'6" BMI (Body Mass Index) 24.9 kg/m2 Heart Rate 60 /min regular Respiratory Rate 16 /min BP Systolic Sitting 126 mmHg Medium cuff, Ra BP Diastolic Sitting 66 mmHg Medium cuff, Ra BP Systolic Lying Down 122 mmHg BP Diastolic Lying Down 68 mmHg 04/29/2021 12:40pm Weight 154.00 lb Home Weight 151lb home weight Height 66 inches 5'6" BMI (Body Mass Index) 24.9 kg/m2 Heart Rate 60 /min regular Respiratory Rate 16 /min BP Systolic Sitting 120 mmHg Medium cuff, Ra BP Diastolic Sitting 66 mmHg Medium cuff, Ra BP Systolic Lying Down 124 mmHg BP Diastolic Lying Down 68 mmHg Results Test Acquired Date Facility Test Result H/L Range Note Renal Profile 07/12/2021 [facility] [address] [id number] [phone] Glucose 107 High 74-106 Blood Urea Nitrogen 39.0 High 7-18 Creatinine 2.1 High 0.6-1.3 GFR (Calculated) 31 Sodium 141.9 136-145 Potassium 5.17 High 3.5-5.1 Chloride 106.4 98-107 Carbon Dioxide 31.5 21-32 Calcium 9.8 8.5-10.1 Phosphorus 3.5 Albumin 3.7 3.4-5.0 Laboratory test finding 07/12/2021 [facility] [address] [address] [phone] Uric Acid 5.2 CBC without Differential 07/12/2021 [facility] [address] [place] [address] [phone] White Blood Count 6.0 4.1-10.9 Red Blood Count 4.98 4.2-6.30 Platelets 152 140-440 Hemoglobin 14.9 12.0-18.0 Hematocrit 44.4 37.0-51.0 Complete Blood Count 03/25/2021 [facility] CCD Impo rt WBC 6.0 x10*3/UL 4.1-10.9 RBC 4.83 x10*6/UL 4.20-6.30 Hemoglobin 14.0 g/dL 12.0-18.0 Hematocrit 41.8 % 37.0-51.0 MCV 86.4 fL 80.0-97.0 MCH 28.9 pg 26.0-32.0 MCHC 33.5 g/dL 31.0-38.0 RDW 14.9 % High 11.6-13.7 PLT 144 x10*3/UL 140-440 MPV 8.1 FL 7.8-11.0 Lymph % 19.8 % 10.0-58.5 Mid % 6.5 % 1.7-9.3 Neut % 73.7 % 37.0-92.0 Lymph # 1.2 x10*3/UL 0.6-4.1 Mid # 0.4 x10*3/UL 0.1-0.6 Neut # 4.4 x10*3/UL 2.0-7.8 Comprehensive Chem Profile 03/25/2021 [facility] CC D Import Glucose 84 mg/dL 74-99 1 BUN 53 mg/dL High 7-18 Creatinine 2.6 mg/dL High 0.6-1.3 Sodium 139 mEq/L 136-145 Potassium 5.1 mEq/L 3.5-5.1 Chloride 109 mEq/L High 98-107 Carbon Dioxide 27 mEq/L 21-32 Calcium 9.4 mg/dL 8.5-10.1 Alk. Phosphatase 90 mg/dL 46-116 Total Bilirubin 0.6 mg/dL 0.2-1.0 Ast (Sgot) 27 U/L 15-37 Alt (SGPT) 46 U/L 12-78 Albumin 3.6 g/dL 3.4-5.0 Total Protein 6.7 g/dL 6.4-8.2 A/G Ratio 1.16 CALC 1.00-1.90 GFR 24 mL/min Low GFR 29 mL/min Low 2 1 100-125 mg/dL PRE-DIABET ES/FASTING >126 mg/dL DIABETES/FASTING 2 CHRONIC KIDNEY DISEASE STAGI NG PER NKF STAGE I & II GFR >= 60 NORMAL TO MILDLY DECREASED STAGE III GFR 30-59 MODERATELY DECREASED STAGE IV GFR 15-29 SEVERELY DECREASED STAGE V GFR <15 VERY LITTLE GFR LEFT ESRD GFR <15 ON TICK ERADICATOR Procedures Date Code Description Status 08/31/2021 18681 Office/Outpatient Established Mo d MDM 30-39 Min Completed 07/25/2021 88319 Remote Pacemaker/Cardio-Defibril lator Data Acquistion Completed 07/25/2021 97928 Remote Interrogation Device Eval Pacemaker System Up To 90 Days Completed 04/29/2021 11944 Office/Outpatient Established Mo d MDM 30-39 Min Completed 04/25/2021 47358 Remote Pacemaker/Cardio-Defibril lator Data Acquistion Completed 04/25/2021 14429 Remote Interrogation Device Eval Pacemaker System Up To 90 Days Completed 03/25/2021 24366 Office/Outpatient Established Mo d MDM 30-39 Min Completed 03/25/2021 94921 ECG 12-Lead Completed 03/17/2021 24293 Echocardiogram 2-D Doppler Color Completed Medical Devices Description No Information Available Encounters Type Date Location Provider Dx Diagnosis Office Visit 08/31/2021 9:30a Main Office Juarez Coleman MD I50.32 Chronic diastolic (congestive) heart failure I48.21 Permanent atrial fibrillatio n I44.30 Unspecified atrioventricular block I42.2 Other hypertrophic cardiomyo bret I35.0 Nonrheumatic aortic (valve) stenosis I34.8 Other nonrheumatic mitral va lve disorders Office Visit 04/29/2021 12:45p Main Office Juarez Coleman MD I50.32 Chronic diastolic (congestive) heart failure I48.21 Permanent atrial fibrillatio n I44.30 Unspecified atrioventricular block I42.2 Other hypertrophic cardiomyo bret I35.0 Nonrheumatic aortic (valve) stenosis I34.8 Other nonrheumatic mitral va lve disorders Office Visit 03/25/2021 12:15p Main Office Juarez Coleman MD R42 Dizziness and giddiness R06.02 Shortness of breath I48.21 Permanent atrial fibrillatio n I44.30 Unspecified atrioventricular block I50.32 Chronic diastolic (congestiv e) heart failure I12.9 Hypertensive chronic kidney disease w stg 1-4/unsp chr kdny I35.0 Nonrheumatic aortic (valve) stenosis I34.8 Other nonrheumatic mitral va lve disorders Assessments Date Code Description Provider 08/31/2021 I50.32 Chronic diastolic (congestive) h eart failure Juarez Coleman MD 08/31/2021 I48.21 Permanent atrial fibrillation Ja mes E Coleman, MD 08/31/2021 I44.30 Unspecified atrioventricular blo ck Juarez Coleman MD 08/31/2021 I42.2 Other hypertrophic cardiomyopath y Juarez Coleman MD 08/31/2021 I35.0 Nonrheumatic aortic (valve) sten osis Juarez Coleman MD 08/31/2021 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 Juarez Coleman MD 07/25/2021 Z95.0 Presence of cardiac pacemaker Pa [facility] 04/29/2021 I50.32 Chronic diastolic (congestive) h eart failure Juarez Coleman MD 04/29/2021 I48.21 Permanent atrial fibrillation Bennie Coleman MD 04/29/2021 I44.30 Unspecified atrioventricular blo ck Juarez Coleman MD 04/29/2021 I42.2 Other hypertrophic cardiomyopath y Juarez Coleman MD 04/29/2021 I35.0 Nonrheumatic aortic (valve) sten osis Juarez Coleman MD 04/29/2021 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 Juarez Coleman MD 04/25/2021 Z95.0 Presence of cardiac pacemaker [facility] 03/25/2021 R42 Dizziness and giddiness Juarez Coleman MD 03/25/2021 R06.02 Shortness of breath Juarez merino MD 03/25/2021 I48.21 Permanent atrial fibrillation Bennie Coelman MD 03/25/2021 I44.30 Unspecified atrioventricular blo ck Juarez Coleman MD 03/25/2021 I50.32 Chronic diastolic (congestive) h eart failure Juarez Coleman MD 03/25/2021 I12.9 Hypertensive chronic kidney disease with stage 1 through stage 4 chronic kidney disease, or unspecified chronic kidney disease Juarez Coleman MD 03/25/2021 I35.0 Nonrheumatic aortic (valve) sten elenais Juarez Coleman MD 03/25/2021 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 Juarez Coleman MD 03/17/2021 R06.02 Shortness of breath ECHO 03/17/2021 I48.21 Permanent atrial fibrillation EC HO 03/17/2021 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 ECHO 03/17/2021 I35.0 Nonrheumatic aortic (valve) sten osis ECHO 03/17/2021 I42.2 Other hypertrophic cardiomyopath y ECHO Plan of Treatment Future Appointment(s):* 03/22/2022 9:00 am - Juarez Coleman MD at Main Office * 10/24/2021 7:00 am - Pacer[facility]Icd Clinic at Main Office 08/31/2021 - Juarez Coleman MD* I50.32 Chronic diastolic (congestive) heart failure * I48.21 Permanent atrial fibrillation * I44.30 Unspecified atrioventricular block * I42.2 Other hypertrophic cardiomyopathy * I35.0 Nonrheumatic aortic (valve) stenosis * 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 * All * Comments:* I will ensure that the aforementioned test findings are reported to you along with any further recommendations. Thank you for allowing me to participate in the care of your patient. Best regards. Functional Status Functional Condition Comment Date Status Independent with all ADL's Activ e Mental Status Description No Information Available Referrals Refer to Dr Reason for Referral Status Appt Date Billy Mendez MD Complicated valvular and hyp ertensive heart disease with increasing effort intolerance, severe left ventricle hypertrophy, worsening LV diastolic dysfunction, at least moderately severe aortic stenosis, severe mitral annular calcification with mild stenosis and insufficiency, permanent atrial fibrillation. Requesting left and right heart catheterization and possible TAVR Created [facility] [address] [place] [address] [place] [address] [phone] Juarez Coleman MD ECHO AUTH EMR-EXPIRES 06/01/21. [place] Created [address] [facility], [address] [facility] [address] [phone]
--- OUTSIDE RECORDS SUMMARY | 2021-09-22 06:07 | CCD | Continuity of Care Document ---
Author Author Nurse Juan Wynne Organization Unknown Address [address] [facility] [address] [place] [address] Phone [phone] Care Team Providers Care Director Of Primary Name Role Phone Carroll Booker JR, MD AUTM Unavailable Naif Ho DO AUTM [phone] Juarez Coleman MD AUTM Unavailable Leilani Simpson MD AUTM [phone] Billy Mendez MD AUTM [phone] Problems Active Problems Provider Date Benign prostatic hyperplasia without outflow obstructi on Amberly Pandey D.O. Onset: 11/28/2011 Raised prostate specific antigen Amberly Pandey D.O. Onset: 11/28/2011 Chronic kidney disease stage 3 Amberly Pandey D.O. On set: 11/28/2011 Pure hypercholesterolemia Amberly Pandey D.O. Onset: 11/28/2011 Gout Amberly Pandey D.O. Onset: 2011 Essential hypertension Amberly Pandey D.O. Onset: Social History Type Date Description Comments Sex Unknown ETOH Use consumes 3-4 beers per week Tobacco Use Start: Unknown Patient has never smoked Allergies and adverse reactions Description No Known Drug Allergies Medications Active Medications SIG Qnty Indications Ordering Provide r Date Atorvastatin Calcium 80mg Tablets 1 by mouth every day 30tabs Carroll Booker MD 10/01/2018 Digoxin 125mcg Tablets 1 tab Mon.Wed and Fri Carroll Booker MD 10/01/2018 Bisoprolol Fumarate 5mg Tablets 1 tab by mouth every day 90tabs Carroll Booker MD 10/01/2018 Xarelto 15mg Tablets Take One Tablet By Mouth Every Day, With Food 60tabs I48.0 Carroll Booker MD 05/07/2018 Vitamin D-3 1000Unit Capsules 2 by mouth every day 100caps Carroll Booker MD 03/03/2015 No OTC Meds Elvira Shah 05/23/2011 Allopurinol 300mg Tablets Take 1/2 Tablet By Mouth Once Daily 45tabs Carroll Booker MD 2009 Medications Administered in Office Medication SIG Qnty Indications Ordering Provider Date Administration Of Flu Vaccine Inj perry Booker MD 08/11/2021 Administration Of Flu Vaccine Inj angelinaion Carroll Booker MD 08/18/2020 Administration Of Flu Vaccine Inj perry Booker MD 10/08/2019 Administration Of Flu Vaccine Inj perry Booker MD 10/01/2018 Immunizations CPT Code Status Date Vaccine Lot # [id number] Given 08/11/2021 Pneumovax 23 [id number] Given 08/11/2021 Influenza Vaccin e Quadrivalent Preser/Antibiotic Free Im Use [id number] 96940 Given 08/18/2020 Influenza Vaccin e Quadrivalent Preser/Antibiotic Free Im Use [id number] 15475 Given 10/08/2019 Influenza Vaccin e Quadrivalent Preser/Antibiotic Free Im Use [id number] [id number] Given 10/01/2018 Influenza Virus Vaccine, Quadrivalent ([id number]), Derived From 4 Refused 04/09/2019 Tetanus/Diptheria(Td)Toxoids Preservative Free Vital Signs Date Vital Result Comment 04/26/2021 11:02am BP Systolic 128 mmHg BP Diastolic 74 mmHg Heart Rate 68 /min Height 66.75 inches 5'6.75" Weight 155.00 lb BMI (Body Mass Index) 24.5 kg/m2 10/20/2020 10:40am BP Systolic 132 mmHg BP Diastolic 74 mmHg Heart Rate 72 /min Height 66.75 inches 5'6.75" Weight 155.00 lb BMI (Body Mass Index) 24.5 kg/m2 Results Test Acquired Date Facility Test Result H/L Range Note Laboratory test finding 04/25/2021 [facility] [address] [place] [address] [phone] Uric Acid 6.0 mg/dL Normal 3.5-7.2 Digoxin Level 0.6 NG/ML Normal 0.5-2.0 Complete Blood Count 04/25/2021 [facility] Breeding Manager: [place] [address] [phone] WBC 5.0 x10*3/UL 4.1 - 10.9 RBC 4.86 x10*6/UL 4.20 - 6.30 Hemoglobin 14.1 g/dL 12.0 - 18.0 Hematocrit 42.9 % 37.0 - 51.0 MCV 88.1 fL 80.0 - 97.0 MCH 28.9 pg 26.0 - 32.0 MCHC 32.8 g/dL 31.0 - 38.0 RDW 15.1 % High 11.6 - 13.7 PLT 132 x10*3/UL Low 140 - 440 MPV 8.8 FL 7.8 - 11.0 Lymph % 19.8 % 10.0 - 58.5 Mid % 6.8 % 1.7 - 9.3 Neut % 73.4 % 37.0 - 92.0 Lymph # 0.9 x10*3/UL 0.6 - 4.1 Mid # 0.5 x10*3/UL 0.1 - 0.6 Neut # 3.6 x10*3/UL 2.0 - 7.8 Comprehensive Chem Profile 04/25/2021 [facility] Breeding Manager: [place] [address] [phone] Glucose 76 mg/dL 74 - 99 1 BUN 43 mg/dL High 7 - 18 Creatinine 2.4 mg/dL High 0.6 - 1.3 Sodium 142 mEq/L 136 - 145 Potassium 4.9 mEq/L 3.5 - 5.1 Chloride 106 mEq/L 98 - 107 Carbon Dioxide 30 mEq/L 21 - 32 Calcium 9.3 mg/dL 8.5 - 10.1 Alk. Phosphatase 89 mg/dL 46 - 116 Total Bilirubin 0.6 mg/dL 0.2 - 1.0 Ast (Sgot) 34 U/L 15 - 37 Alt (SGPT) 39 U/L 12 - 78 Albumin 3.4 g/dL 3.4 - 5.0 Total Protein 6.2 g/dL Low 6.4 - 8.2 2 A/G Ratio 1.21 CALC 1.00 - 1.90 GFR 26 mL/min Low >60 GFR 32 mL/min Low >60 3 Lipid Profile 04/25/2021 [facility] , Breeding Manager: Dr Carroll [place] [address] [phone] Cholesterol 128 mg/dL Low 131 - 200 Triglycerides 48 mg/dL 30 - 150 HDL Cholesterol 53 mg/dL 35 - 60 LDL (Calculated) 65 CALC 50 - 159 Complete Blood Count 03/25/2021 [facility] Breeding Manager: [place] [address] [phone] WBC 6.0 x10*3/UL 4.1 - 10.9 RBC 4.83 x10*6/UL 4.20 - 6.30 Hemoglobin 14.0 g/dL 12.0 - 18.0 Hematocrit 41.8 % 37.0 - 51.0 MCV 86.4 fL 80.0 - 97.0 MCH 28.9 pg 26.0 - 32.0 MCHC 33.5 g/dL 31.0 - 38.0 RDW 14.9 % High 11.6 - 13.7 PLT 144 x10*3/UL 140 - 440 MPV 8.1 FL 7.8 - 11.0 Lymph % 19.8 % 10.0 - 58.5 Mid % 6.5 % 1.7 - 9.3 Neut % 73.7 % 37.0 - 92.0 Lymph # 1.2 x10*3/UL 0.6 - 4.1 Mid # 0.4 x10*3/UL 0.1 - 0.6 Neut # 4.4 x10*3/UL 2.0 - 7.8 Laboratory test finding 03/25/2021 [facility] Breeding Manager: Dr Carroll [place] [address] [phone] B-Type Natriuretic Peptide 794.0 pg/mL High 0.0 - 100.0 Comprehensive Chem Profile 03/25/2021 [facility] Breeding Manager: [place] [address] [phone] Glucose 84 mg/dL 74 - 99 4 BUN 53 mg/dL High 7 - 18 Creatinine 2.6 mg/dL High 0.6 - 1.3 Sodium 139 mEq/L 136 - 145 Potassium 5.1 mEq/L 3.5 - 5.1 Chloride 109 mEq/L High 98 - 107 Carbon Dioxide 27 mEq/L 21 - 32 Calcium 9.4 mg/dL 8.5 - 10.1 Alk. Phosphatase 90 mg/dL 46 - 116 Total Bilirubin 0.6 mg/dL 0.2 - 1.0 Ast (Sgot) 27 U/L 15 - 37 Alt (SGPT) 46 U/L 12 - 78 Albumin 3.6 g/dL 3.4 - 5.0 Total Protein 6.7 g/dL 6.4 - 8.2 A/G Ratio 1.16 CALC 1.00 - 1.90 GFR 24 mL/min Low >60 GFR 29 mL/min Low >60 5 1 100-125 mg/dL PRE-DIABET ES/FASTING >126 mg/dL DIABETES/FASTING 2 NOTE: RESULT VERIFIED. 3 CHRONIC KIDNEY DISEASE STAGI NG PER NKF STAGE I & II GFR >= 60 NORMAL TO MILDLY DECREASED STAGE III GFR 30-59 MODERATELY DECREASED STAGE IV GFR 15-29 SEVERELY DECREASED STAGE V GFR <15 VERY LITTLE GFR LEFT ESRD GFR <15 ON STRONG NITRIC OPERATOR 4 100-125 mg/dL PRE-DIABET ES/FASTING >126 mg/dL DIABETES/FASTING 5 CHRONIC KIDNEY DISEASE STAGI NG PER NKF STAGE I & II GFR >= 60 NORMAL TO MILDLY DECREASED STAGE III GFR 30-59 MODERATELY DECREASED STAGE IV GFR 15-29 SEVERELY DECREASED STAGE V GFR <15 VERY LITTLE GFR LEFT ESRD GFR <15 ON STRONG NITRIC OPERATOR Procedures Date Code Description Status 04/26/2021 78419 Office/Outpatient Established Mo d MDM 30-39 Min Completed 09/15/2020 [id number] Diabetic Retinal Eye Exam [facility] 05/06/2018 [id number] Diabetic Retinal Eye Exam [facility] 03/14/2017 [id number] Colonoscopy Completed 07/10/2013 [id number] Diabetic Retinal Eye Exam [facility] 09/01/2011 [id number] Colonoscopy Completed 04/01/2003 [id number] Colonoscopy Completed Medical Devices Description No Information Available Encounters Type Date Location Provider Dx Diagnosis Office Visit 04/26/2021 11:20a [facility] Carroll Booker MD I35.0 Nonrheumatic aortic (valve) stenosis I34.8 Other nonrheumatic mitral va lve disorders I13.0 Hyp hrt & chr kdny dis w hrt fail and stg 1-4/unsp chr kdny I50.32 Chronic diastolic (congestiv e) heart failure N18.4 Chronic kidney disease, stag e 4 (severe) N40.0 Benign prostatic hyperplasia without lower urinry tract symp E79.0 Hyperuricemia w/o signs of i nflam arthrit and tophaceous dis I48.21 Permanent atrial fibrillatio n Z79.01 long-term (current) use of a nticoagulants Assessments Date Code Description Provider 08/11/2021 Z23 Encounter for immunization Colli keyon Booker MD 08/11/2021 Z23 Encounter for immunization Nurse Schedule 04/26/2021 I35.0 Nonrheumatic aortic (valve) sten osis Carroll Booker MD 04/26/2021 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 Carroll Booker MD 04/26/2021 I13.0 Hypertensive heart a nd chronic kidney disease with heart failure and stage 1 through stage 4 chronic kidney disease, or unspecified chronic kidney disease Carroll Booker MD 04/26/2021 I50.32 Chronic diastolic (congestive) h eart failure Carroll Booker MD 04/26/2021 N18.4 Chronic kidney disease, stage 4 (severe) Carroll Booker MD 04/26/2021 N40.0 Benign prostatic hyp erplasia without lower urinary tract symptoms Carroll Booker MD 04/26/2021 E79.0 Hyperuricemia withou t signs of inflammatory arthritis and tophaceous disease Carroll Booker MD 04/26/2021 I48.21 Permanent atrial fibrillation Co jake Booker MD 04/26/2021 Z79.01 med specialist (current) use of antic oagulants Carroll Booker MD 04/25/2021 Z79.01 long-term (current) use of antic oagulants Carroll Booker MD 04/25/2021 Z79.01 long-term (current) use of antic oagulants Lab Schedule 04/25/2021 I48.21 Permanent atrial fibrillation Co jake Booker MD 04/25/2021 I48.21 Permanent atrial fibrillation La b Schedule 04/25/2021 I13.0 Hypertensive heart a nd chronic kidney disease with heart failure and stage 1 through stage 4 chronic kidney disease, or unspecified chronic kidney disease Carroll Booker MD 04/25/2021 I13.0 Hypertensive heart a nd chronic kidney disease with heart failure and stage 1 through stage 4 chronic kidney disease, or unspecified chronic kidney disease Lab Schedule 04/25/2021 I50.32 Chronic diastolic (congestive) h eart failure Carroll Booker MD 04/25/2021 I50.32 Chronic diastolic (congestive) h eart failure Lab Schedule 04/25/2021 N18.4 Chronic kidney disease, stage 4 (severe) Carroll Booker MD 04/25/2021 N18.4 Chronic kidney disease, stage 4 (severe) Lab Schedule 04/25/2021 E78.00 Pure hypercholesterolemia, unspe cified Carroll Booker MD 04/25/2021 E78.00 Pure hypercholesterolemia, unspe cified Lab Schedule 03/25/2021 I50.32 Chronic diastolic (congestive) h eart failure Carroll Booker MD 03/25/2021 I50.32 Chronic diastolic (congestive) h eart failure Lab Schedule 03/25/2021 I35.0 Nonrheumatic aortic (valve) sten osis Carroll Booker MD 03/25/2021 I35.0 Nonrheumatic aortic (valve) sten osis Lab Schedule 03/25/2021 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 Carroll Booker MD 03/25/2021 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 Lab Schedule Plan of Treatment Future Appointment(s):* 10/24/2021 9:10 am - Lab Schedule at [facility] * 10/25/2021 11:00 am - Carroll Booker [facility] at [facility] 10/20/2020 - Carroll Booker MD* I48.21 Permanent atrial fibrillation * Z79.01 med specialist (current) use of anticoagulants * I13.0 Hypertensive heart and chronic kidney disease with heart failure and stage 1 through stage 4 chronic kidney disease, or unspecified chronic kidney disease * I50.32 Chronic diastolic (congestive) heart failure * N18.4 Chronic kidney disease, stage 4 (severe) * N40.0 Benign prostatic hyperplasia without lower urinary tract symptoms * R97.20 Elevated prostate specific antigen [PSA] * E79.0 Hyperuricemia without signs of inflammatory arthritis and tophaceous disease * I35.0 Nonrheumatic aortic (valve) stenosis * I35.1 Nonrheumatic aortic (valve) insufficiency Functional Status Description No Information Available Mental Status Description No Information Available Referrals Refer to Dr Reason for Referral Status Appt Date Sandro Frey MD STUDENT LIFE ADVISOR CONSULT FOR [facility] [address] [facility], [address] [place] [id number] [phone]
--- OUTSIDE RECORDS SUMMARY | 2021-09-22 06:07 | CCD | Continuity of Care Document ---
Author Author Pacer/Icd Juan Driver Organization Unknown Address [address] [place] [address], [place] [address] Phone Unavailable Care Team Providers Care Principle Industrial Hygienist Name Role Phone Aicha Sadler NP AUTM [phone] Jhony ARSHAD MD, Carroll Andres AUTM Leilani Simpson MD AUTM [phone] Armin Simpson MD AUTM [phone] AUTM [phone] Gerry Catalan MD AUTM [phone] Abhijeet Westbrook MD AUTM [phone] Billy Mendez MD AUTM [phone] Problems Active Problems Provider Date Persistent atrial [...] MD Onset: 11/25/2020 Primary idiopathic hypertrophic cardiomyopathy Juarez chan MD Onset: 04/29/2021 Social History Type Date Description Comments Sex Unknown ETOH Use Rarely consumes beer Tobacco Use Start: Unknown Patient has never smoked Exercise Type/Frequency General Activities Daily Exercise Type/Frequency Does yardwork daily Exercise Type/Frequency Farming Cuts Hay etc Exercise Limitations None Allergies, Adverse Reactions, Alerts Description No Known Drug Allergies Medications Active Medications SIG Qnty Indications Ordering Provide r Date Bisoprolol Fumarate 5mg Tablets 1 by mouth every day I48.0 Juarez Coleman MD 11/24/2020 Vitamin D3 50mcg (1999 Ut) Capsule s 1 by mouth Sunday, Sunday and Sunday Unknown 11/02/2019 Digoxin 125mcg Tablets 1 by mouth mondays, wednesdays and fridays only 40tabs Juarez Coleman MD 0 07/17/2019 Atorvastatin Calcium 80mg Tablets 1 by mouth every night at bedtime 90tabs I25.10 Juarez Coleman MD 08/08/2018 Xarelto 15mg Tablets 1 tab by mouth every day with evening meal Unknown 06/03/2018 Allopurinol 300mg Tablets 1/2 by mouth every day Unknown 06/03/2018 Immunizations Description No Information Available Vital Signs Date Vital Result Comment 04/29/2021 12:40pm Weight 154.00 lb Home Weight 151lb home weight Height 66 inches 5'6" BMI (Body Mass Index) 24.9 kg/m2 Heart Rate 60 /min regular Respiratory Rate 16 /min BP Systolic Sitting 120 mmHg Medium cuff, Ra BP Diastolic Sitting 66 mmHg Medium cuff, Ra BP Systolic Lying Down 124 mmHg BP Diastolic Lying Down 68 mmHg 03/25/2021 12:15pm Weight 154.00 lb Home Weight 151lb Height 66 inches 5'6" BMI (Body Mass Index) 24.9 kg/m2 Heart Rate 60 /min regular Respiratory Rate 16 /min BP Systolic Sitting 123 mmHg Medium cuff, Ra BP Diastolic Sitting 66 mmHg Medium cuff, Ra BP Systolic Lying Down 122 mmHg BP Diastolic Lying Down 68 mmHg Results Test Acquired Date Facility Test Result H/L Range Note Renal Profile 07/12/2021 [facility] [address] [id number] [phone] Glucose 107 High 74-106 Blood Urea Nitrogen 39.0 High 7-18 Creatinine 2.1 High 0.6-1.3 GFR (Calculated) 31 Sodium 141.9 136-145 Potassium 5.17 High 3.5-5.1 Chloride 106.4 98-107 Carbon Dioxide 31.5 21-32 Calcium 9.8 8.5-10.1 Phosphorus 3.5 Albumin 3.7 3.4-5.0 Laboratory test finding 07/12/2021 [facility] [address] [id number] [phone] Uric Acid 5.2 CBC without Differential 07/12/2021 [facility] [address] [address] [phone] White Blood Count 6.0 4.1-10.9 Red Blood [...] LITTLE GFR LEFT ESRD GFR <15 ON FLUX CORE WELDER Procedures Date Code Description Status 07/25/2021 79481 Remote Pacemaker/Cardio-Defibril lator Data Acquistion Completed 07/25/2021 59582 Remote Interrogation Device Eval Pacemaker System Up To 90 Days Completed 04/29/2021 31078 Office/Outpatient Established Mo d MDM 30-39 Min Completed 04/25/2021 74032 Remote Pacemaker/Cardio-Defibril lator Data Acquistion Completed 04/25/2021 39978 Remote Interrogation Device Eval Pacemaker System Up To 90 Days Completed 03/25/2021 28829 Office/Outpatient Established Mo d MDM 30-39 Min Completed 03/25/2021 29956 ECG 12-Lead Completed 03/17/2021 63671 Echocardiogram 2-D Doppler Color Completed Medical Devices Description No Information Available Encounters Type Date Location Provider Dx Diagnosis Office Visit 04/29/2021 12:45p Main Office Juarez [...] lve disorders Assessments Date Code Description Provider 07/25/2021 Z95.0 Presence of cardiac pacemaker Pa cer/[facility] Clinic 04/29/2021 I50.32 Chronic diastolic (congestive) h eart failure Juarez Coleman MD 04/29/2021 I48.21 Permanent atrial fibrillation Ja dev Coleman MD 04/29/2021 I44.30 Unspecified atrioventricular blo [...] merino MD 03/25/2021 I48.21 Permanent atrial fibrillation Ja dev Coleman MD 03/25/2021 I44.30 Unspecified atrioventricular blo ck Juarez Coleman MD 03/25/2021 I50.32 Chronic diastolic (congestive) h eart failure Juarez Coleman MD 03/25/2021 I12.9 Hypertensive chronic kidney disease with stage 1 through stage 4 chronic kidney disease, or unspecified chronic kidney disease Juarez Coleman MD 03/25/2021 I35.0 Nonrheumatic aortic (valve) sten osis Juarez Coleman MD 03/25/2021 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 Juarez Coleman MD 03/17/2021 R06.02 Shortness of breath ECHO 03/17/2021 I48.21 Permanent atrial fibrillation EC HO 03/17/2021 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 Last available chemistry confirmed electrolyte balance with moderately severe chronic renal insufficiency. Have encouraged his salt and modest fluid intake restriction. Manley pharmacological management (digoxin and bisoprolol) designed to keep his heart rate controlled and regular using his pacemaker. Regular relatively slow heart rate will allow more time for left ventricular filling with his left ventricle hypertrophy. Currently remains off diuretic therapy. * I48.21 Permanent atrial fibrillation* Recommendations:* Remains free of any awareness of his heart action. On his current digoxin and bisoprolol, recent remote pacer check documented ventricular pacing 98% of the time. Has been free of any symptom or sign to suggest embolic phenomenon or bleeding complication. No change would be planned to his digoxin, bisoprolol and Xarelt o. Requested he contact us should he develop any abnormal bleeding or black stools. 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 Will continue with [employer] remote monitoring every 91 days. * I42.2 Other hypertrophic cardiomyopathy* Recommendations:* Believed to be a genetic/familial phenomenon without hypertension or significant left ventricular outflow tract obstruction to account for the observed left tacos tricular hypertrophy. Primary management measures as per assessment #1. * I35.0 Nonrheumatic aortic (valve) stenosis* Recommendations:* No auscultatory change from last visit. No symptoms or signs of endocarditis. Recent cardiac catheterization confirmed only a moderate degree of left ventricular outflow tract obstruction as indicated with his echocardiogram. SBE antibiotic prophylaxis prior to dental or surgical procedures, is not necessary for this lesion according to AHA guidelines February 2007. Follow-up echocardiographic study will be planned for April 2022. 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 * All * Comments:* I will ensure that the aforementioned test findings are reported to you along with any further recommendations. Thank you for allowing me to participate in the care of your patient. Best regards. * Follow up:* Clinic visit with EKG in 3 months. Receiving regular blood work with nephrology. We would be pleased to reassess the patient at any time. Functional Status Functional Condition Comment Date Status Independent with all ADL's Activ e Mental Status Description No Information Available Referrals Refer to Reason for Referral Status Appt Date Billy Mendez MD Complicated valvular and hyp ertensive heart disease with increasing effort intolerance, severe left ventricle hypertrophy, worsening LV diastolic dysfunction, at least moderately severe aortic stenosis, severe mitral annular calcification with mild stenosis and insufficiency, permanent atrial fibrillation. Requesting left and right heart catheterization and possible TAVR Created [facility] [address] [place] [address] [phone] Juarez Coleman MD ECHO AUTH EMR-EXPIRES 06/01/21. [place] Created [address] [facility], [facility] [place] [address] [phone]
--- OUTSIDE RECORDS SUMMARY | 2021-09-22 06:07 | CCD | Continuity of Care Document ---
Author Organization Unknown Address Unknown Phone Unavailable Care Team Providers Care Integration Project Manager Name Role Phone Aicha Sadler NP AUTM [phone] Jhony ARSHAD MD, Carroll Andres AUTM Leilani Simpson MD AUTM [phone] Armin Simpson MD AUTM [phone] AUTM [phone] Gerry Catalan MD AUTM [phone] Abhijeet Westbrook MD AUTM [phone] Billy Mendez MD AUTM [phone] Problems Active Problems Provider Date Persistent atrial [...] Exercise Type/Frequency Does yardwork daily Exercise Type/Frequency Tribunat Cuts Hay etc Exercise Limitations None Allergies, Adverse Reactions, Alerts Description No Known Drug Allergies Medications Active Medications SIG Qnty Indications Ordering Provide r Date Bisoprolol Fumarate 5mg Tablets 1 by mouth every day I48.0 Juarez Coleman MD 11/24/2020 Vitamin D3 50mcg (2000 Ut) Capsule s 1 by mouth Sunday, [...] Result H/L Range Note Renal Profile 07/12/2021 [facility] [address] [place] [address] [id number] [phone] Glucose 107 High 74-106 Blood Urea Nitrogen 39.0 High 7-18 Creatinine 2.1 High 0.6-1.3 GFR (Calculated) 31 Sodium 141.9 136-145 Potassium 5.17 High 3.5-5.1 Chloride 106.4 98-107 Carbon Dioxide 31.5 21-32 Calcium 9.8 8.5-10.1 Phosphorus 3.5 Albumin 3.7 3.4-5.0 Laboratory test finding 07/12/2021 [facility] [address] [place] [address] [id number] [phone] Uric Acid 5.2 CBC without Differential 07/12/2021 [facility] [address] [place], [place] [address] [phone] White Blood Count 6.0 4.1-10.9 Red Blood [...] LITTLE GFR LEFT ESRD GFR <15 ON STEEL FLOOR PAN PLACING SUPERVISOR Procedures Date Code Description Status 04/29/2021 91013 Office/Outpatient Established Mo d MDM 30-39 Min Completed 04/25/2021 82882 Remote Pacemaker/Cardio-Defibril lator Data Acquistion Completed 04/25/2021 24144 Remote Interrogation Device Eval Pacemaker System Up To 90 Days Completed 03/25/2021 04118 Office/Outpatient Established Mo d MDM 30-39 Min Completed 03/25/2021 89469 ECG 12-Lead Completed 03/17/2021 84689 Echocardiogram 2-D Doppler Color Completed 01/20/2021 82529 Pacer Programming Single Lead Co mpleted Medical Devices Description No Information Available Encounters [...] lve disorders Assessments Date Code Description Provider 04/29/2021 I50.32 Chronic diastolic (congestive) h eart [...] MD 03/25/2021 I48.21 Permanent atrial fibrillation Bennie Coleman MD 03/25/2021 I44.30 Unspecified atrioventricular blo [...] 03/17/2021 I42.2 Other hypertrophic cardiomyopath y ECHO 01/20/2021 R06.02 Shortness of breath Juarez merino MD 01/20/2021 R42 Dizziness and giddiness Juarez Coleman MD 01/20/2021 I50.32 Chronic diastolic (congestive) h eart failure Juarez Coleman MD 01/20/2021 I48.21 Permanent atrial fibrillation Ja dev Coleman MD 01/20/2021 I44.30 Unspecified atrioventricular blo ck Juarez Coleman MD 01/20/2021 I35.0 Nonrheumatic aortic (valve) sten osis Juarez Coleman MD 01/20/2021 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 Will continue with [employer] remote monitoring every 91 days. * I42.2 [...] right heart catheterization and possible TAVR Created [facility] [address] [facility] [address] [phone] Juarez Coleman MD ECHO AUTH EMR-EXPIRES 06/01/21. [place] Created [address] [facility], [address] [place] [address] [phone]
--- OUTSIDE RECORDS SUMMARY | 2021-09-22 06:07 | CCD | Continuity of Care Document ---
Author Author Juan COLEMAN MD Organization Unknown Address [facility] [address] Phone [phone] Care Team Providers Care Associate Principal Name Role Phone Aicha Sadler NP AUTM [phone] Jhony ARSHAD MD, Carroll F AUTM [phone] Leilani Simpson MD AUTM [phone] Armin Simpson MD AUTM [phone] AUTM [phone] Gerry Catalan MD AUTM [phone] Abhijeet Westbrook MD AUTM [phone] Billy Mendez MD AUTM [phone] Problems Active Problems Provider Date Persistent atrial [...] MD Onset: 10/11/2020 Dizziness and giddiness Juarez Coelman MD Onset: Right bundle branch block AND [...] Date Facility Test Result H/L Range Note Complete Blood Count 03/25/2021 N2N/Direct CCD Impo [...] LITTLE GFR LEFT ESRD GFR <15 ON DIRECTOR HOME HEALTH Procedures Date Code Description Status 04/29/2021 68719 Office/Outpatient Established Mo d MDM 30-39 Min Completed 04/25/2021 55463 Remote Pacemaker/Cardio-Defibril lator Data Acquistion Completed 04/25/2021 85100 Remote Interrogation Device Eval Pacemaker System Up To 90 Days Completed 03/25/2021 30546 Office/Outpatient Established Mo d MDM 30-39 Min Completed 03/25/2021 77834 ECG 12-Lead Completed 03/17/2021 20885 Echocardiogram 2-D Doppler Color Completed 01/20/2021 07542 Pacer Programming Single Lead Co mpleted Medical [...] longevity of 10 years. Will continue with [employer] remote monitoring every 91 days. * I42.2 [...] right heart catheterization and possible TAVR Created [facility] [address] [facility] [address] [phone] Juarez Coleman MD ECHO AUTH EMR-EXPIRES 06/01/21. [place] Created [address] [place] [address], [address] [facility] [address] [phone]
--- OUTSIDE RECORDS SUMMARY | 2021-09-22 06:07 | CCD | Continuity of Care Document ---
Author Author Nurse Juan Wynne Organization Unknown Address [address] [facility] [address] [place] [address] Phone [phone] Care Team Providers Care Newspaper Deliverer Name Role Phone Carroll Booker JR, MD AUTM Unavailable Naif Ho DO AUTM [phone] Juarez Coleman MD AUTM Unavailable Leilani Simpson MD AUTM [phone] Billy Mendez MD AUTM [phone] Problems Active Problems Provider Date Benign prostatic [...] Provider Date Administration Of Flu Vaccine Inj ection Carroll Booker MD 08/18/2020 Administration Of Flu Vaccine Inj ection Carroll Booker MD 10/08/2019 Administration Of Flu Vaccine Inj angelinaion Carroll Booker MD 10/01/2018 Immunizations CPT Code Status Date Vaccine Lot # [id number] Given 08/11/2021 Pneumovax 23 [id number] Given 08/11/2021 Influenza Vaccin e Quadrivalent Preser/Antibiotic Free Im Use [id number] 55573 Given 08/18/2020 Influenza Vaccin e Quadrivalent Preser/Antibiotic Free Im Use [id number] [id number] Given 10/08/2019 Influenza Vaccin e Quadrivalent Preser/Antibiotic Free Im Use [id number] 14712 Given 10/01/2018 Influenza Virus Vaccine, Quadrivalent (Cciiv4), Derived From 2 Refused 04/09/2019 Tetanus/Diptheria(Td)Toxoids Preservative Free Vital Signs [...] H/L Range Note Laboratory test finding 04/25/2021 [facility] [address] [place] [address] [phone] Uric Acid 6.0 mg/dL Normal 3.5-7.2 Digoxin Level 0.6 NG/ML Normal 0.5-2.0 Complete Blood Count 04/25/2021 [facility] alexandre chan Head Rigger: Dr Carroll Booker [place], [place] [address]99 [phone] WBC 5.0 x10*3/UL 4.1 - 10.9 RBC [...] 2.0 - 7.8 Comprehensive Chem Profile 04/25/2021 [facility] alexandre capone Head Rigger: [place] [address] [phone] Glucose 76 mg/dL 74 - 99 1 [...] mL/min Low >60 3 Lipid Profile 04/25/2021 [facility] , Head Rigger: Dr Carroll [place] [address] [phone] Cholesterol 128 mg/dL Low 131 - 200 Triglycerides 48 mg/dL 30 - 150 HDL Cholesterol 53 mg/dL 35 - 60 LDL (Calculated) 65 CALC 50 - 159 Complete Blood Count 03/25/2021 [facility] Head Rigger: Dr Carroll [place] [address] [phone] WBC 6.0 x10*3/UL 4.1 - 10.9 RBC [...] 2.0 - 7.8 Laboratory test finding 03/25/2021 [facility] Head Rigger: Dr Carroll [place] [address] [phone] B-Type Natriuretic Peptide 794.0 pg/mL High 0.0 - 100.0 Comprehensive Chem Profile 03/25/2021 [facility] Head Rigger: [place] [address] [phone] Glucose 84 mg/dL 74 - 99 4 [...] LITTLE GFR LEFT ESRD GFR <15 ON MICA PASTER 4 100-125 mg/dL PRE-DIABET ES/FASTING >126 mg/dL DIABETES/FASTING 5 CHRONIC KIDNEY DISEASE STAGI NG PER NKF STAGE I & II GFR >= 60 NORMAL TO MILDLY DECREASED STAGE III GFR 30-59 MODERATELY DECREASED STAGE IV GFR 15-29 SEVERELY DECREASED STAGE V GFR <15 VERY LITTLE GFR LEFT ESRD GFR <15 ON MICA PASTER Procedures Date Code Description Status 04/26/2021 01393 Office/Outpatient Established Mo d MDM 30-39 Min Completed 09/15/2020 [id number] Diabetic Retinal Eye Exam [facility] 05/06/2018 [id number] Diabetic Retinal Eye Exam [facility] 03/14/2017 [id number] Colonoscopy Completed 07/10/2013 [id number] Diabetic Retinal Eye Exam [facility] 09/01/2011 [id number] Colonoscopy Completed 04/01/2003 [id number] Colonoscopy Completed Medical Devices Description No Information Available Encounters Type Date Location Provider Dx Diagnosis Office Visit 04/26/2021 11:20a [facility] Carroll Booker MD I35.0 Nonrheumatic [...] dis I48.21 Permanent atrial fibrillatio n Z79.01 halfway (current) use of a nticoagulants Assessments Date Code Description Provider 04/26/2021 I35.0 Nonrheumatic aortic (valve) sten osis [...] fibrillation Co jake Booker MD 04/26/2021 Z79.01 halfway (current) use of antic oagulants Carroll Booker MD 04/25/2021 Z79.01 halfway (current) use of antic oagulants Carroll Booker MD 04/25/2021 Z79.01 halfway (current) use of antic oagulants Lab Schedule 04/25/2021 I48.21 Permanent atrial fibrillation Co llrolando Booker MD 04/25/2021 I48.21 Permanent atrial fibrillation [...] 10/24/2021 9:10 am - Lab Schedule at [facility] * 10/25/2021 11:00 am - Carroll Booker MD at [facility] 10/20/2020 - Carroll Booker MD* I48.21 Permanent atrial fibrillation * Z79.01 halfway (current) use of anticoagulants * I13.0 Hypertensive [...] to Reason for Referral Status Appt Date Sandro Frey MD NAIL PROFESSIONAL CONSULT FOR [employer] [facility] Child[facility] Professional [facility] [address] [facility], [address] [place] [id number] [phone]
--- OUTSIDE RECORDS SUMMARY | 2021-09-22 06:07 | CCD | Continuity of Care Document ---
Author Author Nurse Juan Wynne Organization Unknown Address [address] [facility] [address] [place] [address] Phone [phone] Care Team Providers Care Devil Tender Name Role Phone Carroll Booker JR, MD AUTM Unavailable Naif Ho DO AUTM [phone] Juarez Coleman MD AUTM Unavailable Leilani Simpson MD AUTM [phone] Billy Mendez MD AUTM [phone] Problems Active Problems Provider Date Benign prostatic [...] CPT Code Status Date Vaccine Lot # [id number] Given 08/11/2021 Pneumovax 23 [id number] Given 08/11/2021 Influenza Vaccin e Quadrivalent Preser/Antibiotic Free Im Use [id number] 74536 Given 08/18/2020 Influenza Vaccin e Quadrivalent Preser/Antibiotic Free Im Use [id number] 55863 Given 10/08/2019 Influenza Vaccin e Quadrivalent Preser/Antibiotic Free Im Use [id number] 94664 Given 10/01/2018 Influenza Virus Vaccine, Quadrivalent (Cciiv4), Derived From 6 Refused 04/09/2019 Tetanus/Diptheria(Td)Toxoids Preservative Free Vital Signs [...] H/L Range Note Laboratory test finding 04/25/2021 [facility] [address] [place] [address] [phone] Uric Acid 6.0 mg/dL Normal 3.5-7.2 Digoxin Level 0.6 NG/ML Normal 0.5-2.0 Complete Blood Count 04/25/2021 [facility] alexandre chan Electric Tool Repairer: Dr Carroll Booker [place], [place] [address] [phone] WBC 5.0 x10*3/UL 4.1 - 10.9 RBC [...] 2.0 - 7.8 Comprehensive Chem Profile 04/25/2021 [facility] alexandre capone Electric Tool Repairer: [place] [address] [phone] Glucose 76 mg/dL 74 - 99 1 [...] mL/min Low >60 3 Lipid Profile 04/25/2021 [facility] , Electric Tool Repairer: [place] [address] [phone] Cholesterol 128 mg/dL Low 131 - 200 Triglycerides 48 mg/dL 30 - 150 HDL Cholesterol 53 mg/dL 35 - 60 LDL (Calculated) 65 CALC 50 - 159 Complete Blood Count 03/25/2021 [facility] Electric Tool Repairer: [place] [address] [phone] WBC 6.0 x10*3/UL 4.1 - 10.9 RBC [...] 2.0 - 7.8 Laboratory test finding 03/25/2021 [facility] Electric Tool Repairer: [place] [address] [phone] B-Type Natriuretic Peptide 794.0 pg/mL High 0.0 - 100.0 Comprehensive Chem Profile 03/25/2021 [facility] Electric Tool Repairer: [place] [address] [phone] Glucose 84 mg/dL 74 - 99 4 [...] LITTLE GFR LEFT ESRD GFR <15 ON AIR DUCT MECHANIC 4 100-125 mg/dL PRE-DIABET ES/FASTING >126 mg/dL DIABETES/FASTING 5 CHRONIC KIDNEY DISEASE STAGI NG PER NKF STAGE I & II GFR >= 60 NORMAL TO MILDLY DECREASED STAGE III GFR 30-59 MODERATELY DECREASED STAGE IV GFR 15-29 SEVERELY DECREASED STAGE V GFR <15 VERY LITTLE GFR LEFT ESRD GFR <15 ON AIR DUCT MECHANIC Procedures Date Code Description Status 04/26/2021 35688 Office/Outpatient Established Mo d MDM 30-39 Min Completed 09/15/2020 [id number] Diabetic Retinal Eye Exam [facility] 05/06/2018 [id number] Diabetic Retinal Eye Exam [facility] 03/14/2017 [id number] Colonoscopy Completed 07/10/2013 [id number] Diabetic Retinal Eye Exam [facility] 09/01/2011 [id number] Colonoscopy Completed 04/01/2003 [id number] Colonoscopy Completed Medical Devices Description No Information Available Encounters Type Date Location Provider Dx Diagnosis Office Visit 04/26/2021 11:20a [facility] Carroll Booker MD I35.0 Nonrheumatic [...] dis I48.21 Permanent atrial fibrillatio n Z79.01 [facility] (current) use of a nticoagulants Assessments Date [...] fibrillation Co jake Booker MD 04/26/2021 Z79.01 [facility] (current) use of antic oagulants Carroll Booker MD 04/25/2021 Z79.01 [facility] (current) use of antic oagulants Carroll Booker MD 04/25/2021 Z79.01 [facility] (current) use of antic oagulants Lab Schedule [...] 10/24/2021 9:10 am - Lab Schedule at [facility] * 10/25/2021 11:00 am - Carroll Booker MD at [facility] 10/20/2020 - Carroll Booker MD* I48.21 Permanent atrial fibrillation * Z79.01 [facility] (current) use of anticoagulants * I13.0 Hypertensive [...] Referral Status Appt Date Sandro Frey MD MATLAB DEVELOPER CONSULT FOR [employer] [facility] [address] [facility], [address] [place] [id number] [phone]
--- OUTSIDE RECORDS SUMMARY | 2021-09-22 06:07 | CCD | Continuity of Care Document ---
Author Author Nurse Juan Wynne Organization Unknown Address [address] [facility] [address] [place] [address] Phone [phone] Care Team Providers [employer] Name Role Phone Carroll Booker JR, MD AUTM Unavailable Naif Ho DO AUTM [phone] Juarez Coleman MD AUTM Unavailable Leilani Simpson MD AUT[facility] [phone] Billy Mendez MD AUTM [phone] Problems Active Problems Provider Date Benign prostatic [...] CPT Code Status Date Vaccine Lot # 33737 Given 08/11/2021 Pneumovax 23 [id number] Given 08/11/2021 Influenza Vaccin e Quadrivalent Preser/Antibiotic Free Im Use [id number] 15178 Given 08/18/2020 Influenza Vaccin e Quadrivalent Preser/Antibiotic Free Im Use [id number] [id number] Given 10/08/2019 Influenza Vaccin e Quadrivalent Preser/Antibiotic Free Im Use [id number] 00010 Given 10/01/2018 Influenza Virus Vaccine, Quadrivalent ([id number]), Derived From 3 Refused 04/09/2019 Tetanus/Diptheria(Td)Toxoids Preservative Free Vital Signs [...] H/L Range Note Laboratory test finding 04/25/2021 [facility] [address] [place] [address] [phone] Uric Acid 6.0 mg/dL Normal 3.5-7.2 Digoxin Level 0.6 NG/ML Normal 0.5-2.0 Complete Blood Count 04/25/2021 [facility] Order Administrator: Dr Carroll Booker [place], [place] [id number] [phone] WBC 5.0 x10*3/UL 4.1 - 10.9 RBC [...] 2.0 - 7.8 Comprehensive Chem Profile 04/25/2021 [facility] Order Administrator: [place] [address] [phone] Glucose 76 mg/dL 74 - 99 1 [...] mL/min Low >60 3 Lipid Profile 04/25/2021 [facility] Order Administrator: [place] [address] [phone] Cholesterol 128 mg/dL Low 131 - 200 Triglycerides 48 mg/dL 30 - 150 HDL Cholesterol 53 mg/dL 35 - 60 LDL (Calculated) 65 CALC 50 - 159 Complete Blood Count 03/25/2021 [facility] Order Administrator: [place] [address] [phone] WBC 6.0 x10*3/UL 4.1 - 10.9 RBC [...] 2.0 - 7.8 Laboratory test finding 03/25/2021 [facility] Order Administrator: [place] [address] [phone] B-Type Natriuretic Peptide 794.0 pg/mL High 0.0 - 100.0 Comprehensive Chem Profile 03/25/2021 [facility] Order Administrator: [place] [address] [phone] Glucose 84 mg/dL 74 - 99 4 [...] LITTLE GFR LEFT ESRD GFR <15 ON TIRE MAN 4 100-125 mg/dL PRE-DIABET ES/FASTING >126 mg/dL DIABETES/FASTING 5 CHRONIC KIDNEY DISEASE STAGI NG PER NKF STAGE I & II GFR >= 60 NORMAL TO MILDLY DECREASED STAGE III GFR 30-59 MODERATELY DECREASED STAGE IV GFR 15-29 SEVERELY DECREASED STAGE V GFR <15 VERY LITTLE GFR LEFT ESRD GFR <15 ON TIRE MAN Procedures Date Code Description Status 04/26/2021 81539 Office/Outpatient Established Mo d MDM 30-39 Min Completed 09/15/2020 [id number] Diabetic Retinal Eye Exam [facility] 05/06/2018 [id number] Diabetic Retinal Eye Exam [facility] 03/14/2017 [id number] Colonoscopy Completed 07/10/2013 [id number] Diabetic Retinal Eye Exam [facility] 09/01/2011 [id number] Colonoscopy Completed 04/01/2003 [id number] Colonoscopy Completed Medical Devices Description No Information Available Encounters Type Date Location Provider Dx Diagnosis Office Visit 04/26/2021 11:20a [facility] Carroll Booker MD I35.0 Nonrheumatic [...] dis I48.21 Permanent atrial fibrillatio n Z79.01 USP (current) use of a nticoagulants Assessments Date [...] fibrillation Co jake Booker MD 04/26/2021 Z79.01 USP (current) use of antic oagulants Carroll Booker MD 04/25/2021 Z79.01 USP (current) use of antic oagulants Carroll Booker MD 04/25/2021 Z79.01 USP (current) use of antic oagulants Lab Schedule [...] 10/24/2021 9:10 am - Lab Schedule at [facility] * 10/25/2021 11:00 am - Carroll Booker MD at [facility] 10/20/2020 - Carroll Booker MD* I48.21 Permanent atrial fibrillation * Z79.01 USP (current) use of anticoagulants * I13.0 Hypertensive [...] Referral Status Appt Date Sandro Frey MD FINISHED GOODS INSPECTOR CONSULT FOR [employer] [facility] [place] [facility] [address] [facility], [address] [place] [id number] [phone]
--- OUTSIDE RECORDS SUMMARY | 2021-09-22 06:08 | CCD ---
Author Author [facility] Organization [facility] Address Unknown Phone Unavailable Care Team Providers Care Assembly Line Inspector Name Role Phone Daniel LUQUE MD Unavailable Unavailable Daniel LUQUE MD Unavailable Unavailable Daniel LUQUE MD Unavailable Unavailable Daniel LUQUE MD Unavailable Unavailable Daniel LUQUE MD Unavailable Unavailable Daniel LUQUE MD Unavailable Unavailable Daniel LUQUE MD Unavailable Unavailable Daniel LUQUE MD Unavailable Unavailable Daniel LUQUE MD Unavailable Unavailable Daniel LUQUE MD Unavailable Unavailable Daniel LUQUE MD Unavailable Unavailable Daniel LUQUE MD Unavailable Unavailable Daniel LUQUE MD Unavailable Unavailable Daniel LUQUE MD Unavailable Unavailable Daniel LUQUE MD Unavailable Unavailable Daniel LUQUE MD Unavailable Unavailable Daniel LUQUE MD Unavailable Unavailable Daniel LUQUE MD Unavailable Unavailable Daniel LUQUE MD Unavailable Unavailable Daniel LUQUE MD Unavailable Unavailable Daniel LUQUE MD Unavailable Unavailable Daniel LUQUE MD Unavailable Unavailable Daniel LUQUE MD Unavailable Unavailable Daniel LUQUE MD Unavailable Unavailable Daniel LUQUE MD Unavailable Unavailable Daniel LUQUE MD Unavailable Unavailable Daniel LUQUE MD Unavailable Unavailable Daniel LUQUE MD Unavailable Unavailable Daniel LUQUE MD Unavailable Unavailable Daniel LUQUE MD Unavailable Unavailable Daniel LUQUE MD Unavailable Unavailable Daniel LUQUE MD Unavailable Unavailable Daniel LUQUE MD Unavailable Unavailable Daniel LUQUE MD Unavailable Unavailable Daniel LUQUE MD Unavailable Unavailable Daniel LUQUE MD Unavailable Unavailable Daniel LUQUE MD Unavailable Unavailable Daniel LUQUE MD Unavailable Unavailable Daniel LUQUE MD Unavailable Unavailable Daniel LUQUE MD Unavailable Unavailable Daniel LUQUE MD Unavailable Unavailable Daniel LUQUE MD Unavailable Unavailable Daniel LUQUE MD Unavailable Unavailable Daniel LUQUE MD Unavailable Unavailable Daniel LUQUE MD Unavailable Unavailable Daniel LUQUE MD Unavailable Unavailable Daniel LUQUE MD Unavailable Unavailable Daniel LUQUE MD Unavailable Unavailable Daniel LUQUE MD Unavailable Unavailable Daniel LUQUE MD Unavailable Unavailable Daniel LUQUE MD Unavailable Unavailable Daniel LUQUE MD Unavailable Unavailable Daniel LUQUE MD Unavailable Unavailable Daniel LUQUE MD Unavailable Unavailable Mckenna Booker MD Unavailable Unavailable Mckenna Booker MD Unavailable Unavailable Mckenna Booker MD Unavailable Unavailable Mckenna Booker MD Unavailable Unavailable Mckenna Booker MD Unavailable Unavailable Mckenna Booker MD Unavailable Unavailable Mckenna Booker MD Unavailable Unavailable Mckenna Booker MD Unavailable Unavailable Mckenna Booker MD Unavailable Unavailable Mckenna Booker MD Unavailable Unavailable Mckenna Booker MD Unavailable Unavailable Mckenna Booker MD Unavailable Unavailable Mckenna Booker MD Unavailable Unavailable Mckenna Booker MD Unavailable Unavailable Mckenna Booker MD Unavailable Unavailable Mckenna Booker MD Unavailable Unavailable Mckenna Booker MD Unavailable Unavailable Mckenna Booker MD Unavailable Unavailable Mckenna Booker MD Unavailable Unavailable Mckenna Booker MD Unavailable Unavailable Mckenna Booker MD Unavailable Unavailable Mckenna Booker MD Unavailable Unavailable Mckenna Booker MD Unavailable Unavailable Mckenna Booker MD Unavailable Unavailable Mckenna Booker MD Unavailable Unavailable Mckenna Booker MD Unavailable Unavailable Mckenna Booker MD Unavailable Unavailable Mckenna Booker MD Unavailable Unavailable Mckenna Booker MD Unavailable Unavailable Mckenna Booker MD Unavailable Unavailable Mckenna Booker MD Unavailable Unavailable Mckenna Booker MD Unavailable Unavailable Mckenna Booker MD Unavailable Unavailable Mckenna Booker MD Unavailable Unavailable Mckenna Booker MD Unavailable Unavailable [place] awad MD Unavailable Unavailable Mckenna Booker MD Unavailable Unavailable JhonyMckenna MD Unavailable Unavailable [place] MD Unavailable Unavailable JhonyMckenna MD Unavailable Unavailable [place] MD Unavailable Unavailable Jhony, Mckenna Hodges MD Unavailable Unavailable JhonyMckenna MD Unavailable Unavailable JhonyMckenna MD Unavailable Unavailable JhonyMckenna MD Unavailable Unavailable JhonyMckenna MD Unavailable Unavailable JhonyMckenna MD Unavailable Unavailable [place] MD Unavailable Unavailable JhonyMckenna MD Unavailable Unavailable JhonyMckenna MD Unavailable Unavailable [place] MD Unavailable Unavailable [place] MD Unavailable Unavailable [place] MD Unavailable Unavailable JhonyMckenna MD Unavailable Unavailable JhonyMckenna MD Unavailable Unavailable [place] MD Unavailable Unavailable [place] MD Unavailable Unavailable [place] MD Unavailable Unavailable [place] MD Unavailable Unavailable JhonyMckenna MD Unavailable Unavailable JhonyMckenna MD Unavailable Unavailable JhonyMckenna MD Unavailable Unavailable [place] MD Unavailable Unavailable [place] MD Unavailable Unavailable [place] MD Unavailable Unavailable JhonyMckenna MD Unavailable Unavailable [place] MD Unavailable Unavailable JhonyMckenna MD Unavailable Unavailable JhonyMckenna MD Unavailable Unavailable JhonyMckenna MD Unavailable Unavailable JhonyMckenna MD Unavailable Unavailable JhonyMckenna MD Unavailable Unavailable [place] awad MD Unavailable Unavailable [place] MD Unavailable Unavailable [place] MD Unavailable Unavailable JhonyMckenna MD Unavailable Unavailable JhonyMckenna MD Unavailable Unavailable JhonyMckenna MD Unavailable Unavailable [place] MD Unavailable Unavailable JhonyMckenna MD Unavailable Unavailable [place] MD Unavailable Unavailable [place] MD Unavailable Unavailable JhonyMckenna MD Unavailable Unavailable [place] MD Unavailable Unavailable JhonyMckenna MD Unavailable Unavailable [place] MD Unavailable Unavailable Luis MENDEZ MD Unavailable Unavailable Luis MENDEZ MD Unavailable Unavailable Luis MENDEZ MD Unavailable Unavailable Luis MENDEZ MD Unavailable Unavailable EFE, S AYMAN MD Unavailable Unavailable EFE, S AYMAN MD Unavailable Unavailable EFE, S AYMAN MD Unavailable Unavailable EFE, S AYMAN MD Unavailable Unavailable EFE, S AYMAN MD Unavailable Unavailable EFE, S AYMAN MD Unavailable Unavailable EFE, S AYMAN MD Unavailable Unavailable EFE, S AYMAN MD Unavailable Unavailable EFE, S AYMAN MD Unavailable Unavailable EFE, S AYMAN MD Unavailable Unavailable EFE, S AYMAN MD Unavailable Unavailable EFE, S AYMAN MD Unavailable Unavailable EFE, S AYMAN MD Unavailable Unavailable EFE, S AYMAN MD Unavailable Unavailable EFE, S AYMAN MD Unavailable Unavailable EFE, S AYMAN MD Unavailable Unavailable EFE, S AYMAN MD Unavailable Unavailable EFE, S AYMAN MD Unavailable Unavailable EFE, S AYMAN MD Unavailable Unavailable EFE, S AYMAN MD Unavailable Unavailable EFE, S AYMAN MD Unavailable Unavailable EFE, S AYMAN MD Unavailable Unavailable EFE, S AYMAN MD Unavailable Unavailable EFE, S AYMAN MD Unavailable Unavailable EFE, S AYMAN MD Unavailable Unavailable EFE, S AYMAN MD Unavailable Unavailable EFE, S AYMAN MD Unavailable Unavailable EFE, S AYMAN MD Unavailable Unavailable EFE, S AYMAN MD Unavailable Unavailable EFE, S AYMAN MD Unavailable Unavailable EFE, S AYMAN MD Unavailable Unavailable EFE, S AYMAN MD Unavailable Unavailable EFE, S AYMAN MD Unavailable Unavailable EFE, S AYMAN MD Unavailable Unavailable EFE, S AYMAN MD Unavailable Unavailable EFE, S AYMAN MD Unavailable Unavailable EFE, S AYMAN MD Unavailable Unavailable EFE, S AYMAN MD Unavailable Unavailable EFE, S AYMAN MD Unavailable Unavailable EFE, S AYMAN MD Unavailable Unavailable EFE, S AYMAN MD Unavailable Unavailable EFE, S AYMAN MD Unavailable Unavailable EFE, S AYMAN MD Unavailable Unavailable EFE, S AYMAN MD Unavailable Unavailable EFE, S AYMAN MD Unavailable Unavailable EFE, S AYMAN MD Unavailable Unavailable EFE, S AYMAN MD Unavailable Unavailable EFE, S AYMAN MD Unavailable Unavailable EFE, S AYMAN MD Unavailable Unavailable EFE, S AYMAN MD Unavailable Unavailable EFE, S AYMAN MD Unavailable Unavailable EFE, S AYMAN MD Unavailable Unavailable EFE, S AYMAN MD Unavailable Unavailable EFE, S AYMAN MD Unavailable Unavailable EFE, S AYMAN MD Unavailable Unavailable EFE, S AYMAN MD Unavailable Unavailable EFE, S AYMAN MD Unavailable Unavailable EFE, S AYMAN MD Unavailable Unavailable EFE, S AYMAN MD Unavailable Unavailable EFE, S AYMAN MD Unavailable Unavailable EFE, S AYMAN MD Unavailable Unavailable EFE, S AYMAN MD Unavailable Unavailable EFE, S AYMAN MD Unavailable Unavailable EFE, S AYMAN MD Unavailable Unavailable EFE, S AYMAN MD Unavailable Unavailable EFE, S AYMAN MD Unavailable Unavailable EFE, S AYMAN MD Unavailable Unavailable EFE, S AYMAN MD Unavailable Unavailable EFE, S AYMAN MD Unavailable Unavailable EFE, S AYMAN MD Unavailable Unavailable EFE, S AYMAN MD Unavailable Unavailable EFE, S AYMAN MD Unavailable Unavailable EFE, S AYMAN MD Unavailable Unavailable EFE, S AYMAN MD Unavailable Unavailable EFE, S AYMAN MD Unavailable Unavailable EFE, S AYMAN MD Unavailable Unavailable EFE, S AYMAN MD Unavailable Unavailable EFE, S AYMAN MD Unavailable Unavailable EFE, S AYMAN MD Unavailable Unavailable EFE, S AYMAN MD Unavailable Unavailable EFE, S AYMAN MD Unavailable Unavailable EFE, S AYMAN MD Unavailable Unavailable EFE, S AYMAN MD Unavailable Unavailable Re-disclosure Warning The records that you are about to access may contain information from federally-assisted alcohol or drug abuse programs. If such information is present, then the following federally mandated warning applies: This information has been disclosed to you from records protected by federal confidentiality rules (42 CFR part 2). The federal rules prohibit you from making any further disclosure of this information unless further disclosure is expressly permitted by the written consent of the person to whom it pertains or as otherwise permitted by 42 CFR part 2. A general authorization for the release of medical or other information is NOT sufficient for this purpose. The Federal rules restrict any use of the information to criminally investigate or prosecute any alcohol or drug abuse patient.The records that you are about to access may contain highly sensitive health information, the redisclosure of which is protected by Article 27-F of the [facility] Public Health law. If you continue you may have access to information: Regarding HIV / AIDS; Provided by facilities licensed or operated by the [facility] Office of Mental Health; or Provided by the [facility] Office for People With Developmental Disabilities. If such information is present, then the following [facility] mandated warning applies: This information has been disclosed to you from confidential records which are protected by state law. State law prohibits you from making any further disclosure of this information without the specific written consent of the person to whom it pertains, or as otherwise permitted by law. Any unauthorized further disclosure in violation of state law may result in a fine or group home sentence or both. A general authorization for the release of medical or other information is NOT sufficient authorization for further disc losure. Family History Family Member Name Family Member Gender Family Member Status Date o f Status Description Data Source(s) Unknown Male Problem [facility] Unknown Male Problem [facility] ([facility]) Unknown Male Problem [facility] ([facility]) Unknown Unknown Problem [facility] ([facility] [place]) Encounters Encounter Providers Location Date Indications Data Source(s ) Outpatient Attender: ORALIA LUQUE MD Main Office 08/31/2021 09:30:00 AM EDT [facility] ([facility] Outpatient Attender: ORALIA LUQUE MD Main Office 04/29/2021 12:45:00 PM EDT [facility] ([facility]) Outpatient Attender: Carroll Jacksno 0 04/26/2021 11:20:00 AM EDT MED[facility] ([facility] ) H Attender: BILLY MENDEZ MDAdmitter: BILLY HERNÁNDEZ MD [id number] 04/22/2021 05:59:00 AM EDT - 04/22/2021 02:12:00 PM EDT [facility] Patient discharged. Outpatient Attender: ORALIA LUQUE MD Main Office 03/25/2021 12:15:00 PM EDT MED[facility] ([facility]) Outpatient Attender: ORALIA LUQUE MD Main Office 11/25/2020 09:30:00 AM EST [facility] ([facility]) OFFICE OUTPATIENT VISIT 40 MINUTES Attender: ORALIA LUQUE MD Katherine n Office 11/12/2020 02:45:00 PM EST [facility]) Outpatient Attender: Carroll Jackson 1 12/21/2019 09:40:00 AM EST MED[facility] ([facility] ) Outpatient Attender: ORALIA LUQUE MD Main Office 10/11/2020 09:15:00 AM EST [facility] ([facility]) Immunizations Vaccine Date Status Description Data Source(s) Influenza, injectable, MDCK, preservative free, franklyn valent 08/11/2021 01:42:00 PM EDT completed MEDJING ([facility]) pneumococcal polysaccharide PPV23 08/11/2021 01:42:00 PM EDT comple greg DEA ([facility]) 207 02/15/2021 12:00:00 AM EDT completed <td I D="[id number]">Covid-19 (Moderna)</td><td>02/15/2021, 01/13/2021</td><td></td> [facility] COVID-19 VACCINE Moderna 02/15/2021 12:00:00 AM EDT completed [employer] Vaccine Series Complete: YESThis Data wa s Submitted to [facility] Via [employer]. COVID-19 VACCINE, MRNA-1273, LNP-S (MODERNA)/PF 02/15/2021 1 2:00:00 AM EDT completed [facility] 207 01/13/2021 12:00:00 AM EST completed <td I D="[id number]">Covid-19 (Moderna)</td><td>02/15/2021, 01/13/2021</td><td></td> [facility] COVID-19 VACCINE Moderna 01/13/2021 12:00:00 AM EST completed [facility] Vaccine Series Complete: NOThis Data was Submitted to [facility] Via Wiki-PR. COVID-19 VACCINE, MRNA-1273, LNP-S (MODERNA)/PF 01/13/2021 1 2:00:00 AM EST completed [facility] Influenza, injectable, MDCK, preservative free, franklyn valent 08/18/2020 01:18:00 PM EDT completed [facility] ([facility]) Medications Medication Brand Name Start Date Product Form Dose Route Admi nistrative Instructions Pharmacy Instructions Status Indications Reaction Description Data Source(s) Digoxin 0.125 MG Oral Tablet 125 mcg (0.125 mg) DIGOXIN 08/12/2021 12:00:00 AM EDT tablet 36 TAKE ONE TABLET BY MOUTH Sun, WEDNESDAYS, AND FRIDAYS ONLY TAKE ONE TABLET BY MOUTH MONDAYS, WEDNESDAYS, AND FRIDAYS ONLY SOLD: 08/13/2021 [facility] Administration Of Flu Vaccine 08/11/2021 12:00:00 AM EDT completed [facility] Medication administered onsite 1 % 07/31/2021 12:00:00 AM EDT drops,suspension 5 INSTILL 1 DROP IN THE RIGHT EYE FOUR TIMES A DAY START AFTER SURGERY INSTILL 1 DROP IN THE RIGHT EYE FOUR TIMES A DAY START AFTER SURGERY SOLD: 08/01/2021 [facility] 0.5 % 07/31/2021 12:00:00 AM EDT drops 5 INSTILL 1 DROP IN THE RIGHT EYE FOUR TIMES A DAY START 3 DAYS PRIOR TO SURGERY INSTILL 1 DROP IN THE RIGHT EYE FOUR TIMES A DAY START 3 DAYS PRIOR TO SURGERY SOLD: 08/01/2021 [facility] Polymyxin B 64173 UNT/ML / Trimethoprim 1 MG/ML Ophthalmic Solution 10,000 unit- 1 mg/mL POLYMYXIN B SULF/TRIMETHOPRIM 07/31/2021 12:00:00 AM EDT drops 1 0 INSTILL 1 DROP IN THE RIGHT EYE FOUR TIMES A DAY START 3 DAYS PRIOR TO SURGERY INSTILL 1 DROP IN THE RIGHT EYE FOUR TIMES A DAY START 3 DAYS PRIOR TO SURGERY SOLD: 08/01/2021 [facility] sodium chloride 0.9% (NS) infusion [id number] 04/22/2021 01:00:00 PM EDT 75 mL/h Intravenous active at 75 mL /hr, 75 mL/hr, Intravenous, Continuous, Starting on Sun04/22/21 at 1300, For 2 hours, Post-op [facility] Medication administered onsite iopamidol (ISOVUE-370) 76 % 10140 04/22/2021 11:33:17 AM EDT active As needed, Starting on Sun04/22/21 at 1133, Intra-Proc edure [facility] Medication administered onsite 1 ML heparin sodium, porcine 1000 UNT/ML Injection hep magui (porcine) injection heparin (porcine) injection 04/22/2021 11:11:35 AM EDT active As needed, Starting on Sun04/22/21 at 1111, Intra-Procedure [facility] Medication administered onsite 4 ML Verapamil hydrochloride 2.5 MG/ML Injection verap brady (ISOPTIN) injection verapamil (ISOPTIN) injection 04/22/2021 11:11:21 AM EDT active As needed, Starting on Sun04/22/21 at 1111, Intra-Procedure [facility] Medication administered onsite fentaNYL Citrate (PF) (SUBLIMAZE) injection [id number] 04/22/2021 11:08:36 AM EDT active As neede d, Starting on Sun04/22/21 at 1108, Intra-Procedure [facility] Medication administered onsite 2 ML Midazolam 1 MG/ML Injection midazolam (VERSED) in jection midazolam (VERSED) injection 04/22/2021 11:08:30 AM EDT active As needed, Starting on Sun04/22/21 at 1108, Intra-Procedure [facility] Medication administered onsite lidocaine 1 % injection [id number] 04/22/2021 11:08:05 AM EDT active As needed, Starting on Sun at 1108, Intra-Procedure [facility] Medication administered onsite normal saline flush 0.9 % injection 3 mL [id number] 04/22/2021 09:00:00 AM EDT 3 mL Intravenous active 3 mL , Intravenous, PROTOCOL, First dose on Sun04/22/21 at 0900, Pre-op
flush per protocol, D/C Main IV fluid if appropriate
[facility] Medication administered onsite sodium chloride 0.9% (NS) infusion [id number] 04/22/2021 07:00:00 AM EDT 100 mL/h Intravenous active at 100 m L/hr, 100 mL/hr, Intravenous, Continuous, Starting on Sun04/22/21 at 0700, Pre-op
Start 4 hours prior to scheduled start time
[facility] Medication administered onsite normal saline flush 0.9 % injection 3 mL [id number] 04/22/2021 07:00:00 AM EDT 3 mL Intravenous active 3 mL , Intravenous, Every 8 hours (scheduled), First dose on Sun04/22/21 at 0700, Pre-op
Rapid push positive pressure flushing shall be performed with a 10 cc normal saline syringe to check the PATENCY of a PIV site prior to any infusion therapy initiation unless resistance is met.
[facility] Medication administered onsite Acetaminophen 325 MG Oral Tablet acetaminophen (TYLENO L) 325 MG tablet 650 mg acetaminophen (TYLENOL) 325 MG tablet 650 mg 04/22/2021 06:35:37 AM EDT 650 mg Oral active 650 mg, Or al, Every 4 hours PRN, headaches, and non cardiac pain, Starting on Sun04/22/21 at 0635, Pre-op
"Maximum dose of acetaminophen is 4,000 mg from all sources in 24 hours."
[facility] Medication administered onsite clopidogrel 75 MG Oral Tablet clopidogrel (PLAVIX) 75 MG tablet clopidogrel (PLAVIX) 75 MG tablet 04/19/2021 12:00:00 AM EDT 75 mg Oral aborted Take 75 mg by mouth daily [facility] 75 mg 04/13/2021 12:00:00 AM EDT tablet 5 TAKE 2 TABLETS BY MOUTH ON 04/19/21 FOLLOWED BY 1 EVERY MORNING UNTIL PROCEDURE TAKE 2 TABLETS BY MOUTH ON 04/19/21 FOLLOWED BY 1 EVERY MORNING UNTIL PROCEDURE SOLD: 04/14/2021 [facility] clopidogrel 75 MG Oral Tablet [Plavix] Plavix 2021 12:00:00 A M EDT active [facility] ([facility] 300 mg 02/04/2021 12:00:00 AM EDT tablet 45 TAKE ONE-HALF TABLET BY MOUTH EVERY DAY TAKE ONE-HALF TABLET BY MOUTH EVERY DAY SOLD: 08/13/2021 [facility] 300 mg 02/04/2021 12:00:00 AM EDT tablet 45 TAKE ONE-HALF TABLET BY MOUTH EVERY DAY TAKE ONE-HALF TABLET BY MOUTH EVERY DAY SOLD: 05/14/2021 [facility] 300 mg 02/04/2021 12:00:00 AM EDT tablet 45 TAKE ONE-HALF TABLET BY MOUTH EVERY DAY TAKE ONE-HALF TABLET BY MOUTH EVERY DAY SOLD: 02/07/2021 [facility] 15 mg 01/19/2021 12:00:00 AM EDT tablet 60 TAKE ONE TABLET BY MOUTH EVERY DAY WITH FOOD TAKE ONE TABLET BY MOUTH EVERY DAY WITH FOOD SOLD: 07/25/2021 [facility] 15 mg 01/19/2021 12:00:00 AM EDT tablet 60 TAKE ONE TABLET BY MOUTH EVERY DAY WITH FOOD TAKE ONE TABLET BY MOUTH EVERY DAY WITH FOOD SOLD: 03/22/2021 [facility] 15 mg 01/19/2021 12:00:00 AM EDT tablet 60 TAKE ONE TABLET BY MOUTH EVERY DAY WITH FOOD TAKE ONE TABLET BY MOUTH EVERY DAY WITH FOOD SOLD: 01/20/2021 [facility] 15 mg 01/19/2021 12:00:00 AM EDT tablet 50 TAKE ONE TABLET BY MOUTH EVERY DAY WITH FOOD TAKE ONE TABLET BY MOUTH EVERY DAY WITH FOOD SOLD: 06/06/2021 [facility] Bisoprolol Fumarate 5 MG Oral Tablet Bisoprolol Fumarate 12:00:00 AM EST ORAL active [facility] ([facility]) 80 mg 11/22/2020 12:00:00 AM EST tablet 90 TAKE ONE TABLET BY MOUTH AT BEDTIME TAKE ONE TABLET BY MOUTH AT BEDTIME SOLD: 11/23/2020 [facility] 80 mg 11/22/2020 12:00:00 AM EST tablet 90 TAKE ONE TABLET BY MOUTH AT BEDTIME TAKE ONE TABLET BY MOUTH AT BEDTIME SOLD: 05/20/2021 [facility] 80 mg 11/22/2020 12:00:00 AM EST tablet 90 TAKE ONE TABLET BY MOUTH AT BEDTIME TAKE ONE TABLET BY MOUTH AT BEDTIME SOLD: 08/22/2021 [facility] 80 mg 11/22/2020 12:00:00 AM EST tablet 90 TAKE ONE TABLET BY MOUTH AT BEDTIME TAKE ONE TABLET BY MOUTH AT BEDTIME SOLD: 02/24/2021 [facility] 5 mg 11/13/2020 12:00:00 AM EST tablet 90 TAKE ONE TABLET BY MOUTH AT BEDTIME TAKE ONE TABLET BY MOUTH AT BEDTIME SOLD: 08/13/2021 [facility] 5 mg 11/13/2020 12:00:00 AM EST tablet 90 TAKE ONE TABLET BY MOUTH AT BEDTIME TAKE ONE TABLET BY MOUTH AT BEDTIME SOLD: 05/14/2021 [facility] 5 mg 11/13/2020 12:00:00 AM EST tablet 90 TAKE ONE TABLET BY MOUTH AT BEDTIME TAKE ONE TABLET BY MOUTH AT BEDTIME SOLD: 11/15/2020 [facility] 5 mg 11/13/2020 12:00:00 AM EST tablet 90 TAKE ONE TABLET BY MOUTH AT BEDTIME TAKE ONE TABLET BY MOUTH AT BEDTIME SOLD: 02/15/2021 [facility] docosahexaenoic acid 120 MG / Eicosapentaenoic Acid 18 0 MG Oral Capsule Fish Oil 10/10/2020 12:00:00 AM EST ORAL completed [facility] ([facility]) Omeprazole 40 MG Delayed Release Oral Capsule Omeprazole 10/10/2020 12:00:00 AM EST ORAL completed [facility] ([facility]) Administration Of Flu Vaccine 08/18/2020 12:00:00 AM EDT completed MEDENT ([facility]) Medication administered onsite Digoxin 0.125 MG Oral Tablet 125 mcg (0.125 mg) DIGOXIN 08/06/2020 12:00:00 AM EDT tablet 40 TAKE ONE TABLET BY MOUTH Sun, WEDNESDAYS, AND FRIDAYS ONLY TAKE ONE TABLET BY MOUTH MONDAYS, WEDNESDAYS, AND FRIDAYS ONLY SOLD: 02/07/2021 [facility] Digoxin 0.125 MG Oral Tablet 125 mcg (0.125 mg) DIGOXIN 08/06/2020 12:00:00 AM EDT tablet 40 TAKE ONE TABLET BY MOUTH Sun, WEDNESDAYS, AND FRIDAYS ONLY TAKE ONE TABLET BY MOUTH MONDAYS, WEDNESDAYS, AND FRIDAYS ONLY SOLD: 10/27/2020 [facility] Digoxin 0.125 MG Oral Tablet 125 mcg (0.125 mg) DIGOXIN 08/06/2020 12:00:00 AM EDT tablet 40 TAKE ONE TABLET BY MOUTH Sun, WEDNESDAYS, AND FRIDAYS ONLY TAKE ONE TABLET BY MOUTH MONDAYS, WEDNESDAYS, AND FRIDAYS ONLY SOLD: 05/14/2021 [facility] 125 mcg (0.125 mg) 08/06/2020 12:00:00 AM EDT tablet 40 TAKE ONE TABLET BY MOUTH MONDAYS, WEDNESDAYS, AND FRIDAYS ONLY TAKE ONE TABLET BY MOUTH MONDAYS, WEDNESDAYS, AND FRIDAYS ONLY SOLD: 08/09/2020 [facility] 40 mg 07/14/2020 12:00:00 AM EDT capsule,delayed release (DR/EC) 30 TAKE ONE CAPSULE BY MOUTH EVERY DAY TAKE ONE CAPSULE BY MOUTH EVERY DAY SOLD: 09/13/2020 [facility] 40 mg 07/14/2020 12:00:00 AM EDT capsule,delayed release (DR/EC) 30 TAKE ONE CAPSULE BY MOUTH EVERY DAY TAKE ONE CAPSULE BY MOUTH EVERY DAY SOLD: 10/11/2020 [facility] 40 mg 07/14/2020 12:00:00 AM EDT capsule,delayed release (DR/EC) 30 TAKE ONE CAPSULE BY MOUTH EVERY DAY TAKE ONE CAPSULE BY MOUTH EVERY DAY SOLD: 08/12/2020 [facility] 5 mg 07/01/2020 12:00:00 AM EDT tablet 45 TAKE ONE-HALF TABLET BY MOUTH EVERY DAY TAKE ONE-HALF TABLET BY MOUTH EVERY DAY SOLD: 10/11/2020 [facility] 15 mg 05/24/2020 12:00:00 AM EDT tablet 60 TAKE ONE TABLET BY MOUTH EVERY DAY, WITH FOOD TAKE ONE TABLET BY MOUTH EVERY DAY, WITH FOOD SOLD: 11/21/2020 [facility] 15 mg 05/24/2020 12:00:00 AM EDT tablet 60 TAKE ONE TABLET BY MOUTH EVERY DAY, WITH FOOD TAKE ONE TABLET BY MOUTH EVERY DAY, WITH FOOD SOLD: 09/22/2020 [facility] 300 mg 01/01/2020 12:00:00 AM EST tablet 45 TAKE 1/2 TABLET BY MOUTH ONCE DAILY TAKE 1/2 TABLET BY MOUTH ONCE DAILY SOLD: 08/12/2020 [facility] 300 mg 01/01/2020 12:00:00 AM EST tablet 45 TAKE 1/2 TABLET BY MOUTH ONCE DAILY TAKE 1/2 TABLET BY MOUTH ONCE DAILY SOLD: 11/04/2020 [facility] 80 mg 11/26/2019 12:00:00 AM EST tablet 90 TAKE ONE TABLET BY MOUTH AT BEDTIME TAKE ONE TABLET BY MOUTH AT BEDTIME SOLD: 08/25/2020 [facility] Insurance Providers Payer name Policy type / Coverage type Policy ID Covered libertarian ID Covered libertarian's relationship to chavira Policy Chavira Plan Information [facility] ([facility] [id number] Self D [id number] [facility] ([facility]) Usbpi [id number] Self Usbpi [id number] A BS Waqas Trad/MX Commercial [id number] Self Y [id number] Medicare Natl Govt Servic Medicare Primary [id number] Self [id number] MEDICARE [id number] SP [id number] A BS ecoVent Trad/MX Commercial [id number] Self [id number] Medicare Natl Govt Servic Medicare Primary [id number] Self MVP Gold/MCR Plan Commercial [id number] Self MVP GOLD [id number] SP [id number] [employer] Healthcare Commercial [id number] Self TODAYS OPTIONS [id number] SP [id number] [employer] Commercial [id number] Self [id number] TODAYS OPTIONS [id number] SP [id number] WELLCARE MEDICARE [id number] 24 [id number] WELLCARE MEDICARE [id number] [facility] 18 [id number] INSURANCE COVID-19 [id number] xOVID 2 [id number] Today's Options Ppo Commercial [id number] Self [id number] Today's Options Ppo Commercial [id number] Self [id number] [facility] [id number] S [id number] TODAYS OPTIONS/MONTENEGRIN O UNAVAILABLE [id number] S UNAVAILABLE [facility] Health Care Health Maintenance Organization (HMO) [id number] Self [id number] PREFERRED CARE [id number] SP [id number] [facility] PHY [id number] SP [id number] [facility] -MEDICARE PFFS MCRADVANT [id number] S [id number] [facility] COMM HMO UNAVAILABLE S [place] VAILABLE [facility] C[facility] S [id number] S [id number] MEDICARE P [id number] S [id number] A WELLCARE [id number] SP [id number] [employer] [place] [id number] SP [id number] [facility] HEALTH INSURANCE COMPANY-O/P [id number] 18 [id number] [facility] GOLD [id number] SP [id number] WELLCARE [id number] SP [id number] WELLCARE O [id number] S [id number] WELLCARE HEALTH PLANS [id number] S [id number] TODAYS OPTIONS [id number] S [id number] TODAYS OPTIONS [id number] S [id number] Today's Options Ppo Commercial [id number] Self [id number] Wellcare MCR - To Ppo Commercial [id number] Self [id number] Today's Options Ppo Commercial [id number] Self [id number] Wellcare MCR - To Ppo Commercial [id number] Self [id number] Today's Options Ppo Commercial [id number] Self [id number] Well[employer] MCR - To Ppo Commercial [id number] Self [id number] Today's Options Ppo Commercial [id number] Self [id number] Well[employer] MCR - To Ppo Commercial [id number] Self 1 [id number] TODAYS OPTIONS/MONTENEGRIN O [id number] S [id number] Today's Options Ppo Commercial [id number] Self [id number] Today's Options Ppo Commercial [id number] Self [id number] Problems, Conditions, and Diagnoses Code Display Name Description Problem Type Effective Dates Data Source(s) R06.02 Shortness of breath Shortness of breath Diagnosis 0 04/22/2021 05:59:00 AM EDT [facility] R42 Dizziness and giddiness Dizziness and giddiness Diagno sis 04/22/2021 05:59:00 AM EDT [facility] I42.2 Primary idiopathic hypertrophic cardiomy opathy Primary idiopathic hypertrophic cardiomyopathy Problem 04/29/2021 12:00:00 AM EDT [facility] ([facility]) I44.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 block Atrioventricular block Problem 11/25/2020 12:00:00 AM EST [facility] ([facility]) R06.02 Dyspnea Dyspnea Problem 11/25/2020 12:00:00 AM ES T [facility] ([facility]) 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 Problem 11/12/2020 12:00:00 AM EST [facility] ([facility]) 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 Problem 2020 12:00:00 AM EST [facility] ([facility]) R42 Dizziness and giddiness Dizziness and giddiness Proble m 11/12/2020 12:00:00 AM EST [facility] ([facility]) R07.89 Chest pain Chest pain Problem 10/11/2020 12:00:00 AM ES T [facility] ([facility]) Surgeries/Procedures Procedure Description Date Indications Data Source(s) OFFICE OUTPATIENT VISIT 25 MINUTES 08/31/2021 12:00:00 AM EDT [facility] ([facility]) INTERROGATION EVAL REMOTE </90 D 1/2/SCALE TANK OPERATOR LEAD PM 07/25 12:00:00 AM EDT [facility] ([facility]) INTERROGATION REMOTE </90 D AVIATION SURVIVAL TECHNICIAN REVIEW 07/25/20 12:00:00 AM EDT [facility] ([facility]) OFFICE OUTPATIENT VISIT 25 MINUTES 04/29/2021 12:00:00 AM EDT [facility] ([facility]) OFFICE OUTPATIENT VISIT 25 MINUTES 04/26/2021 12:00:00 AM EDT [facility] ([facility]) INTERROGATION EVAL REMOTE </90 D 1/2/SCALE TANK OPERATOR LEAD PM 04/25 12:00:00 AM EDT [facility] ([facility]) INTERROGATION REMOTE </90 D AVIATION SURVIVAL TECHNICIAN REVIEW 04/25/20 12:00:00 AM EDT [facility] ([facility]) CARDIAC CATHETERIZATION <td>CARDIAC CATHETERIZATION</td><td>Routine</td><td>04/22/2021 11:33 AM EDT</td><td> Dizziness and giddiness Shortness of breath</td><td> </td> 04/22/2021 11:33:00 AM EDT Shortness of breathDizziness and giddiness [facility] Shortness of breath Dizziness and giddiness ECG ROUTINE ECG W/LEAST 12 LDS TRCG ONLY W/O I&R <td>E CG 12- LEAD</td><td>Routine</td><td>04/22/2021 7:13 AM EDT</td><td></td><td></td> 04/22/2021 07:13:20 AM EDT [facility] RT & LT Heart Cath W/Coronary Angiography 04/22/2021 1 2:00:00 AM EDT [facility] ([facility]) Perc Transcatheter Placement, Intracoronary Stent W/Plasty 2021 12:00:00 AM EDT [facility] ([facility]) Left Heart Cath W/Wo LV & Coronary Angiography 021 12:00:00 AM EDT [facility] ([facility]) ECG ROUTINE ECG W/LEAST 12 LDS W/I&R 03/25/2021 12:00: 00 AM EDT [facility] ([facility]) OFFICE OUTPATIENT VISIT 25 MINUTES 03/25/2021 12:00:00 AM EDT [facility] ([facility]) ECHO TTHRC R-T 2D W/WOM-MODE COMPL SPEC&COLR DOP 03/17 12:00:00 AM EDT [facility] ([facility]) PROGRAM EVAL IMPLANTABLE IN PRSN 1 LD PACEMAKER 2020 12:00:00 AM EDT [facility] ([facility]) INTERROGATION EVAL IN PERSON 1/DUAL/SCALE TANK OPERATOR LEAD PM 2020 12:00:00 AM EST [facility] ([facility]) OFFICE OUTPATIENT VISIT 15 MINUTES 11/25/2020 12:00:00 AM EST [facility] ([facility]) OFFICE OUTPATIENT VISIT 40 MINUTES 11/12/2020 12:00:00 AM EST [facility] ([facility]) XTRNL ECG < 48 HR RECORDING 11/08/2020 12:00:00 AM EST [facility] ([facility]) XTRNL ECG CONTINUOUS RHYTHM PHYS REVIEW&INTERPJ 2020 12:00:00 AM EST [facility] ([facility]) ECG ROUTINE ECG W/LEAST 12 LDS W/I&R 10/11/2020 12:00: 00 AM EST [facility] ([facility]) Diabetic Retinal Eye Exam 09/15/2020 12:00:00 AM EST [facility] ([facility]) Results ID Date Data Source [id number] 07/12/2021 05:14:00 PM EDT [facility] ([facility]) Name Value Range Interpretation Code Description Data Lillie rce(s) Supporting Document(s) White Blood Count 6.0 4.1-10.9 [facility] ([facility]) Red Blood Count 4.98 4.2-6.30 [facility] ([facility]) Platelets 152 140-440 [facility] ([facility]) Hematocrit 44.4 37.0-51.0 [facility] ([facility]) Hemoglobin 14.9 12.0-18.0 [facility] ([facility]) ID Date Data Source [id number] 07/12/2021 05:14:00 PM EDT [facility] ([facility]) Name Value Range Interpretation Code Description Data Lillie rce(s) Supporting Document(s) Uric Acid 5.2 [facility] ([facility]) ID Date Data Source [id number] 07/12/2021 05:14:00 PM EDT [facility] ([facility]) Name Value Range Interpretation Code Description Data Lillie rce(s) Supporting Document(s) Blood Urea Nitrogen 39.0 7-18 [facility] ([facility]) Glucose 107 74-106 [facility] [place] Sodium 141.9 136-145 [facility] Creatinine 2.1 0.6-1.3 [facility] ([facility]) Glomerular filtration rate/1.73 sq M.pre dicted [Volume Rate/Area] in Serum or Plasma by Creatinine-based formula (MDRD) 31 [facility] Chloride 106.4 98-107 [facility] Potassium 5.17 3.5-5.1 [facility] [place] Calcium 9.8 8.5-10.1 [facility] [place] Phosphorus 3.5 [facility] ([facility]) Carbon Dioxide 31.5 21-32 [facility] ([facility]) Albumin 3.7 3.4-5.0 [facility] ID Date Data Source [id number] 04/25/2021 10:43:00 AM EDT [facility] ([facility]) Name Value Range Interpretation Code Description Data Lillie rce(s) Supporting Document(s) Urate [Mass/volume] in Serum or Plasma 6.0 mg/dL 3.5-7.2 [facility] ([facility]) Digoxin [Mass/volume] in Serum or Plasma 0.6 ng/mL 0.5-2.0 [facility] ([facility]) ID Date Data Source [id number] 04/25/2021 10:40:00 AM EDT [facility] ([facility]) Name Value Range Interpretation Code Description Data Lillie rce(s) Supporting Document(s) Cholesterol [Mass/volume] in Serum or Plasma 128 mg/dL 131-200 [facility] ([facility]) Triglyceride [Mass/volume] in Serum or Plasma 48 mg/dL 30-150 [facility] ([facility]) Cholesterol in HDL [Mass/volume] in Serum or Plasma 53 mg/dL 35-60 [facility] ([facility]) Cholesterol in LDL [Mass/volume] in Serum or Plasma by calcu lation 65 CALC 50-159 [facility] ([facility]) ID Date Data Source [id number] 04/25/2021 10:40:00 AM EDT [facility] ([facility]) Name Value Range Interpretation Code Description Data Lillie rce(s) Supporting Document(s) Urea nitrogen [Mass/volume] in Serum or Plasma 43 mg/dL 7-18 [facility] ([facility]) Glucose [Mass/volume] in Serum or Plasma 76 mg/dL 74-99 [facility] ([facility]) 100-125 mg/dL PRE-DIABETES/FASTING >126 mg/dL DIABETES/FASTING Creatinine 2.4 mg/dL 0.6-1.3 [facility] Potassium [Moles/volume] in Serum or Plasma 4.9 meq/L 3.5-5.1 [facility] ([facility]) Sodium [Moles/volume] in Serum or Plasma 142 meq/L 136-145 [facility] ([facility]) Carbon dioxide, total [Moles/volume] in Serum or Plasma 30 meq/L 21 -32 [facility] ([facility]) Chloride [Moles/volume] in Serum or Plasma 106 meq/L 98-107 [facility] ([facility]) Calcium [Mass/volume] in Serum or Plasma 9.3 mg/dL 8.5-10.1 [facility] ([facility]) Alkaline phosphatase isoenzyme [Units/volume] in Serum or Pl asma 89 mg/dL 46-116 [facility] ([facility]) Total Bilirubin 0.6 mg/dL 0.2-1.0 [facility] ([facility]) Alanine aminotransferase [Enzymatic activity/volume] in Seru m or Plasma 39 U/L 12-78 [facility] ([facility]) Aspartate aminotransferase [Enzymatic activity/volume] in Serum or Plasma 34 U/L 15-37 [facility] ([facility] ) Albumin [Mass/volume] in Serum or Plasma 3.4 g/dL 3.4-5.0 [facility] ([facility]) A/G Ratio 1.21 CALC 1.00-1.90 [facility] Proteinase 3 Ab [Units/volume] in Serum 6.2 g/dL 6.4-8.2 [facility] ([facility]) NOTE: RESULT VERIFIED. Glomerular filtration rate/1.73 sq M pre dicted among blacks [Volume Rate/Area] in Serum or Plasma by Creatinine-based formula (MDRD) 32 mL/min [facility] <content>CHRONIC KIDNEY DISEASE STAGING PER NKF</content>
<content></content>
<content>STAGE I & II GFR >= 60 NORMAL TO MILDLY DECREASED</content>
<content>STAGE III GFR 30-59 MODERATELY DECREASED</content>
<content>STAGE IV GFR 15-29 SEVERELY DECREASED</content>
<content>STAGE V GFR <15 VERY LITTLE GFR LEFT</content>
<content>ESRD GFR <15 ON MEDICAL NURSE</content>
<content></content> Glomerular filtration rate/1.73 sq M pre dicted among non-blacks [Volume Rate/Area] in Serum or Plasma by Creatinine-based formula (MDRD) 26 mL/min [facility] ([facility]) ID Date Data Source [id number] 04/25/2021 10:40:00 AM EDT [facility] ([facility]) Name Value Range Interpretation Code Description Data Lillie rce(s) Supporting Document(s) Leukocytes [#/volume] in Blood by Automated count 5.0 x10*3/UL 4.1-10 .9 [facility] Hematocrit [Volume Fraction] of Blood by Automated count 42.9 % 3 7.0-51.0 [facility] Hemoglobin [Mass/volume] in Blood 14.1 g/dL 12.0-18.0 [facility] Erythrocytes [#/volume] in Blood by Automated count 4.86 x10*6/UL 4.2 0-6.30 [facility] ([facility]) MCH 28.9 pg 26.0-32.0 [facility] [facility] MCV 88.1 fL 80.0-97.0 [facility] [place] [facility] MCHC 32.8 g/dL 31.0-38.0 [facility] ([facility]) Erythrocyte distribution width [Ratio] by Automated count 15.1 % 11.6-13.7 [facility] Platelets [#/volume] in Blood by Automated count 132 x10*3/UL 140-440 [facility] MPV 8.8 FL 7.8-11.0 [facility] [facility]) Mid % 6.8 % 1.7-9.3 [facility] [place] [facility] Lymph % 19.8 % 10.0-58.5 [facility] [place] [facility] Mid # 0.5 x10*3/UL 0.1-0.6 [facility] ([facility]) Neut % 73.4 % 37.0-92.0 [facility] [facility] Lymph # 0.9 x10*3/UL 0.6-4.1 [facility] ([facility]) Neut # 3.6 x10*3/UL 2.0-7.8 [facility] ([facility]) ID Date Data Source [id number] 04/22/2021 11:52:11 AM EDT [facility] Name Value Range Interpretation Code Description Data Lillie rce(s) Supporting Document(s) &PDF [facility] RYZSRe9jWlOTNfDr21/FTDyoYNYbq4MsCKztXEt9WYoiIVLcQ9JxjGmiCCDIZ8tJOugAZ49AOSEeCcQq yKE [file] uHT8eJV+23A9QFKcbgKudk6c3S2M+gxlt1QF1FG8DML5pskAeIO9fVsljOzGoAhOCMqgdW88QJFkh/Prescription Benefit Specialist [file] ICAgICAgICAgICAgICAgICAgICAgICAgICAgICAgIC ZqWNVsGAUhPSHkEERkITFvXOAzWLYuJDDoZJSwHKYiKKZvKQFcMTFuWCWaXL7OTNPrEKKhUWKkOYEjNL AgICAgICAgICAgICAgICAgICAgICAgICAgICAgICAgICAgICAgICAgICAgICAgICAgICAgICAgICAgIC MuTAFwGMTrRNFuTMRhJQJpBGBbPBFwICJoEP9NJGZx ICAgICAgICAgICAgICAgICAgICAgICAgICAgICAgICAgICAgICAgICAgICAgICAgICAgICAgICAgICAg SDOvSFDpKQWoIQNgGXElDVTlCMPuJCGbESKdSCMrIORvPGMvEO7DAZQoHLFmMOYeQQXdLOFgUWCxUNEd ICAgICAgICAgICAgICAgICAgICAgICAgICAgICAgIC XxLGWaTWZeMZVsYBJnDMFfTDInBIDyNITcMDHwMEHqZBYbELTuYNHjXBTnUVYmLC7PTTTwULGzDLNwEP AgICAgICAgICAgICAgICAgICAgICAgICAgICAgICAgICAgICAgICAgICAgICAgICAgICAgICAgICAgIC UzERAsXHNnXYXgTIHdCSFvBUHhBTYgAUUkPTUvGO9L ICAgICAgICAgICAgICAgICAgICAgICAgICAgICAgICAgICAgICAgICAgICAgICAgICAgICAgICAgICAg XOOtLGCcFXNiAWLaRHRhUIKxZTEaWVOrHLCgVFVbWTEuJRZtEBVgSV5IUGXbZNJjYQGzWUSqFJZvXTWx ICAgICAgICAgICAgICAgICAgICAgICAgICAgICAgIC BiRZMqEBIrMEAjHDAhLFPyLOLwWSKcCMWsKPQsZFEmIKIrPWDpCSJrSACfVMRsCIYdHM9BUWTmQUNwQK AgICAgICAgICAgICAgICAgICAgICAgICAgICAgICAgICAgICAgICAgICAgICAgICAgICAgICAgICAgIC AgICAgICAgICAgICAgICAgICAgICAgICAgICAgICAg RT0OVXLyQOFxBIGmAIPiNAWpRQCqZHMpTKNmEQClVKSrLHRzHGNwYOYeMQMnSWJqFRNlWSAcXOJuUPUz YCHuTFKfLKVoPJWxXJJbTUPgVUZpPIPuPCLeYZPoSFJxPCYkRWTsBCOrJQ7PKPNiCTAtSBJcKFMpGYXt ICAgICAgICAgICAgICAgICAgICAgICAgICAgICAgIC RuOGHjKAGkEFOnWYSfZMDiXOJgVBAmDCDnTPRiFWQxWJEvZJNcTROwMUAaEMIyYSEcGDDiZL0GPB75yC Nqt6L8RTEsWR8wsbv/St1XCXtvucGhwIIuHR5EGdCaSO0klu9RCfGdBL8ebj0ALGvMGlTvE3J7cQBmXQ MrKTZOOnXlK59kSXhpRl73HIczFDYcSuVzIEj0Uk3G TpVgJ6aePNFgRjF6CWZrReP4DQDyEcE3RZQdAhKwLABpPOHzKK8RYOGcB146aiNqBK8MNh6LUcJtBN0z sn3HWdhiBFApOxmGUzf5ZTvrUS0FtFAzxOCvPZDcAKHPOpWiQ5wxa4HzBmIrRGPGMOkwUT8Pi1OqyALk DQo+Wk8RRK1xx5YlFWvlUBVlRU7qub8IKSnGDwWgI5 XhcOfxREssyHgxwvIrRS6RTIVyZKFixVHeFDfhDINEZF2FHDtqBAGiAVSzjsMzfNLiGAvfQF4ZOENtra QgMjkgMCBSDQo+Om8YTU6jt8NyDNilAIEaNE6sjz6IZOxNJhVsU4O9nUXyD9W2CYvoNh0WMBRhIHQoVi mkWBNYUYjnUJ5BAA9xhwU2TC6DnKWmKHStMOPbdYQd MJr1S27tyUQhPOctEQ5ULOS+Ivette+Ry9ZKDOuOCGmBSTaPxOmJDTZCmLdO7VhC2WGt7NtY6JgFP13qOxd liKuMRrdXC6UGK1lSTZqVNHHKO9YaMHmeB8zzeKwCGLuAAAXVaKkF83dyIBdDTQeGMX4IZYaOt8QDZHa K1IdorNfeMmisdSrTFNbUVZLFI1JAGkcjgCiyZYsgK ljKE21fHrjXT9GTn2PFsPkDR5mgy3JmQGfOv3YBCOvYs2USEQeDLXoTUKcZOF6KZMoGfWpBAcpSVPpUB UzMAS7FEVpQQJsHW6XVtSbGQCjYAA5JvKmLPUzAAAyua8EGNVzJDG7ExBcOIIhQVYmSARuHWpoQKIxYR StHPuaOOKoEWZxCE2EWbQkAGVvLQB5TWffJPFbPGTx vj5RLDMkYHWgKql9TvDvNEVjWCXkWMiyUMPbPMR0KOK8JMLgGTGyIU0FKoPyFZUgEHUmKNypDYZmYKOg hc5WRBYkSEPhRnLtKKPmAENsTDAzUHreQPWdZTZ7VAU9GHYkFRMkHF5TUdLrZETtQDo3GwFsMOViVBQg qk7DPBInLASoGRK8ZbOxFHZiFWVoBNzeJMWxHLG7PY W6YRBnKBYnAK4VJsApJQLsSIrzDoSvOCHpDOVons6XTCXzJADqUNMvTuTpJJCcUTPpVFkmTHXmFXRsKf X6BFFhYPCoQD2JLpWuQACvMEL9RvfwJXTeYJWjly1UJCScDXHjUEx0TVSbOEOsQJDeQFqjRJAtUVC1Os YtYVKeTLYsWU1JRvUeSJMmLUB7OzafENFoQBBvnh0N UDPhNYVvMhZ0KFBjXQVdFRNzTFuwLWTdOKY7ZlxeYQCmBVVhOG3DNlEvLXXvCYH4HeeuKJNpMHDsfv3G QZLxBFHiGCGtWuVhUANuTVZbQZaeHHHwDERzGROpAIPrOIZzMI2LLaIyFTErPhX3QGOlVPDmFCQmwf0R TIRjIXR5ASyeNLJzPQVwHKNuDIhxGQVpTMH0XbZ4UY DfXLScLF7SRiMbWFMbNQW3FqPnQJIeHNWloc9TPQCmZGW8Sep2QxHkXIAqNUVlETgtPVAkSIT3LWr0SQ ShFXHeQT1TOrZtPDmyJQOMRpu1MHgbK6d7DIFpLu5FV1Jfu3UeEzGvFYUHZSxlRL8cafEjBDJgVr0NB6 nIQgctKCN7YMDrRTyyQANqMYUwWVDpEZC3UIU6JAWt Pnr7RQ3uFBHpVrcjGfOcQBNjMTSiUBO5MAFjTfa4OKa0K2OeEoC6ByWdER4IMx0VXoB7JBM7nZZcXo3G HIacXszIBwCzVO0AENz= ID Date Data Source [id number] 04/22/2021 09:05:59 AM EDT [facility] Name Value Range Interpretation Code Description Data Lillie rce(s) Supporting Document(s) EKG [facility] VFSMOc6wQjCRIxCud9JyKaDmDKHwRQ2lldd4T4H3uEPnZ1PgeLMev7jhX5DnL7JwEGUsOBYXUI1SxAYq jb2 [file] i0vvpkh76EnXy8ujyf8zE+g1+5Ucrej0fHvNr8vpsp Bb+84PR9fa+DAEVnWkjWcqR3dqRPcd5T7llnqAxjFdHu2ir26fyN76ck5rNabQI+FXvRxK/wKtbVk4dA 3V96Ok3TF5PDmKwzGLGHVngSPYwxEViy3GevBD+0ovPzhp6nfToxykH+K9KnSMtc1FRazu68C/Er0wu0 5zrgw6PAFxulW5Rlg/iVacmTI+g9KCegmw7V9/p/yL KRrDcdQ40BYRsGR4EW/VcVUeVJ5BTL/7NdHeqP4ITswrgUG2U4CWBYLIaDJMTNdpX0AgwCckY+global engineering manager/un ZVOKL6MQp7HHaapvSR6KeFv/I8g1+x96dOL5j6jtdu3kM9GB+1dHul7ejKPJsthlpO/FnpPHKo4M8/8C vvS/Ar79fC/kq+Ch7VJF/pDEi+Rr4Wn2ETv03yC+gN +iQt+FehOY3fhQ0mp7KJa3GR5NCR+x3m3Pb3co85bkftf1bRg0tOf+lhO4hhgicQ72U+6Sl1LooEwqgD PqpFeEzJJ5OBdTWtUoa94uvHlIMkW/MTcUAY0Veu/Kro/7m/vTbQuN+a+2cAq0LzCsj7/P4+b+H2v3Tw h8xB0AR94e2f+P/o3N/a8uf254cBZ5u+8LnJV69tWU m12petsvOpO/ae8s8nN5rZ6rw2h/Ed1vc+Uv/tI/XfKivuD2hwdVsXihY041nKbnLqrjqUwLNjaq/i2e 6k4i2efxM3mi2dM336hS8o56v+4PXxcB1j+UZf+Q2o9gs81urAp54tirFFmdXEaR70h8bKSw9hh+zvLq Xq4LFu38Pe6Omrs00bID884/ed799+7BixFZvUy0PP /xpr2M5SP4Urn11+JRrrfHKdB/jVeAro+rv+zQGhNW56ar13FbaJ6CKx2vugeVDS+JWuWQroiu+kvDGg N76RfgGyubMd+0/6zScqSm5/8jIiccDcvqvlY2Oq0JLphxEhuX846hknrw0ndL726fifrlv/1PsqfPKW kkAhy4GiZLyeS509bkU/1Ccl/ZNF2nMua5KzWqrfsu AVTl7EeR5og6/qiBCu+PSm4OMNM+uOCU93f+3hh1/qxBVu+Htfwa+Gxgp+VTz9zKL/eoCeoBfolNvD/X 3ejUE4NE9/srdjtt1dW/Nb4E5FPH24uG7p+Jvj6v0PXyuG1mdx/iupF02Xf0LC+UpRelB1W+gBeoJeoF PeGDPljQF+OkRvFSdUZSxt2NOgZ0oNN8B+O1a+f8fK 48QAgD0jOPaUFNPhC/XsEajUyZ1auIw/iI6L3W4V2EshKWxhX78l/Mo0+MbB/T8L27kH5/6QfBXnLfzj zrDGG159svbLa1icoRb6W/tje4EW4KB3IC/WnDnXnvK94FtvX+hx77t4BkbZcwD7ga4+S+Genevieve/b2ov/v vC/Z2+NEq4G8mvJ0VY5pjzCqa5Bc3vou1S+z3Ys7R0 /7s+P1g4z77KQ+FIogo9lss3kAcCI1nQeK7dIkprdsoFMhhb2rB4rdohQ2Tq9RZ4TBfTAnec5m+R6cfY Je+P7HtE2pTqkytj/kKMmGsozbCFo7Rh0rZ/FmEeX4tcEkHZAfrS6BhC/P+CGamFeaUghXOvvrjES2rl 9dsHHAzbE8aDEt1yz+CAh5hampmHBqIcJ0FX+hD86V 5bqtxRaU8QUz42c/4esoo32F37rqrOKAhHHpy5xsEyA3zvDduVVskZkwSmyYzsAS7Y536wB4DDMA2Wi4 gU7/1XaX1VOm16E3s78VT9tPw++C/UkGbgQxf5tSpgdrLes1jdT80ZyJB/vetj72yv4+WV4uJzlmi6+s bjxUeP9AIOvE9lZtPD/2gC6gK+w1oisbuDnboLmsn1 fboHG/8VgL7J7jW8TTvAc4OMH/+pC9RHShyCSWrLGO8P/AOg+e33X0Y4sgERc6cM7I/R/rPLHOM/1Ha2 A4t5jqh66t2ry883+3xK/i/lbFA0qEj9AcOV0zot8fge/Z2+OduGRvj/ljey07RPtB/Jack+Qp+NYNXL9 [file] AwMDEyOTcgMDAwMDAgbiAKMDAwMDAwMTQwNiAwMDAw WUImPJmzCNIuAQP2Gqi1ECIiLFQzZA1cXvKgIBRaHZO0BSjlTIFuIJBnhsQQOZRyGXJkJZakXTNhRSXi ELBgMQmjLJRqBGZvWQB8MMEiBUEkFZ6iLgXnBTRsVMQuCWAmQtQ1IeFzQrVAyPMgeAhozba4OEwtD1j1 NIYmMGxmYX7ataPrWEMvVhclQb8xfRX5DMFuPetBVx6Ui4EasvS8zrSlIiG0WUe8MyYoAT8A ID Date Data Source [id number] 04/22/2021 08:37:59 AM EDT [facility] INFORMATIONPatient MRN Name Date of Age Gend*PT [id number] Alexei Carr 1945 76 years M SDCPT Location Admission Date/Time Visit ID Attending [id number] 04/22/21 0559 --- Billy Mendez MD([id number]) EPI ID CSN Admitting Provider [id number] Billy Mendez MD([id number])Updated H&PPlease see the scanned/dictated outpatient note.I have reviewed the note, clinical history and physical exam findings. Therehave been no significant changes.Plan as outlined in the outpatient note.Risk/benifit/alternative of cardiac catheterization was discussed withpatient/family. Risks included, but not limited to; OR, CVA, , renalimpairment, vascular complication, and need for emergency surgery were discussedand accepted by patient.Billy Mendez MD, [facility], [facility] BO[facility] CITYAIInterventional Pressing Department Supervisor Name Value Range Interpretation Code Description Data Lillie rce(s) Supporting Document(s) ID Date Data Source [id number] 04/18/2021 10:30:00 AM EDT [facility] ([facility]) Name Value Range Interpretation Code Description Data Lillie rce(s) Supporting Document(s) White Blood Count 5.2 10 4.0-10.0 Normal (applies to non-numeri c results) [facility] ([facility]) Hemoglobin 13.9 g/dL 13.5-17.5 Normal (applies to non-numeric resul ts) [facility] ([facility]) Red Blood Count 4.84 10 4.30-6.10 Normal (applies to non-numeric results) [facility] ([facility]) Hematocrit 44.5 % 42.0-52.0 Normal (applies to non-numeric resul ts) [facility] ([facility]) Mean Corpuscular HGB Conc 31.2 g/dL 32.0-36.5 Below low normal MED[facility] ([facility]) Mean Corpuscular Volume 91.9 fl 80.0-96.0 Normal ( applies to non-numeric results) [facility] Mean Corpuscular Hemoglobin 28.7 pg 27.0-33.0 Norm al (applies to non-numeric results) [facility] ([facility]) Platelet Count, Automated 145 10 150-450 Below low normal MED[facility] ([facility]) Red Cell Distribution Width 15.5 % 11.5-14.5 Above high normal MED[facility] ([facility]) Neutrophils % 66.9 % 36.0-66.0 Above high normal MEDE NT ([facility]) [place] % 8.6 % 2.0-8.0 Above high normal MED[facility] ([facility]) Lymph % 21.2 % 24.0-44.0 Below low normal [facility] ( [facility]) Eos % 1.9 % 0.0-3.0 Normal (applies to non-numeric resul ts) [facility] ([facility]) Baso % 0.8 % 0.0-1.0 Normal (applies to non-numeric resul ts) [facility] ([facility]) Neutrophils # 3.5 10 1.5-8.5 Normal (applies to non-numeric re sults) [facility] ([facility]) Nucleated Red Blood Cell % 0.0 % 0-0 Normal (applies to n on-numeric results) [facility] ([facility]) Immature Granulocyte % 0.6 % 0-3.0 Normal (applies to non-n umeric results) [facility] ([facility]) [place] # 0.5 10 0.0-0.8 Normal (applies to non-numeric resul ts) [facility] ([facility]) Lymph # 1.1 10 1.5-5.0 Below low normal [facility] ( [facility]) Eos # 0.1 10 0.0-0.5 Normal (applies to non-numeric resul ts) [facility] ([facility]) Baso # 0.0 10 0.0-0.2 Normal (applies to non-numeric resul ts) [facility] ([facility]) ID Date Data Source [id number] 04/18/2021 10:30:00 AM EDT MED[facility] ([facility]) Name Value Range Interpretation Code Description Data Lillie rce(s) Supporting Document(s) Blood Urea Nitrogen 44 mg/dL 7-18 Above high normal MED[facility] ([facility]) Glucose, Fasting 132 mg/dL 70-100 Above high normal M EDENT ([facility]) Creatinine For GFR 2.21 mg/dL 0.70-1.30 Above high normal [facility] ([facility]) Sodium Level 141 meq/L 136-145 Normal (applies to non-numeric res ults) [facility] ([facility]) Glomerular Filtration Rate 31.0 Below low normal [facility] ([facility]) <content>Units are mL/min/1.73 m2</content>
<content></content>
<content>Chronic Kidney Disease Staging per NKF:</content>
<content></content>
<content>Stage I & II GFR >=60 Normal to Mildly Decreased</content>
<content>Stage III GFR 30- 59 Moderately Decreased</content>
<content>Stage IV GFR 15-29 Severely Decreased</content>
<content>Stage V GFR <15 Very Little GFR Left</content>
<content>ESRD GFR <15 on MEDICAL NURSE</content>
<content></content> Chloride Level 111 meq/L 98-107 Above high normal MED ENT ([facility]) Potassium Serum 4.2 meq/L 3.5-5.1 Normal (applies to non-numeric results) [facility] ([facility]) Carbon Dioxide Level 27 meq/L 21-32 Normal (applies to non-num claudio results) [facility] ([facility]) Calcium Level 9.0 mg/dL 8.8-10.2 Normal (applies to non-numeric re sults) [facility] ([facility]) Anion Gap 3 meq/L 8-16 Below low normal [facility] ( [facility]) ID Date Data Source [id number] 03/25/2021 02:23:00 PM EDT [facility] Name Value Range Interpretation Code Description Data Lillie rce(s) Supporting Document(s) Glucose [Mass/volume] in Serum or Plasma 84 mg/dL 74-99 [facility] ([facility]) 100-125 mg/dL PRE-DIABETES/FASTING >126 mg/dL DIABETES/FASTING Urea nitrogen [Mass/volume] in Serum or Plasma 53 mg/dL 7-18 [facility] ([facility]) Creatinine 2.6 mg/dL 0.6-1.3 [facility] ([facility]) Sodium [Moles/volume] in Serum or Plasma 139 meq/L 136-145 [facility] ([facility]) Carbon dioxide, total [Moles/volume] in Serum or Plasma 27 meq/L 21 -32 [facility] ([facility]) Potassium [Moles/volume] in Serum or Plasma 5.1 meq/L 3.5-5.1 [facility] ([facility]) Chloride [Moles/volume] in Serum or Plasma 109 meq/L 98-107 [facility] ([facility]) Alkaline phosphatase isoenzyme [Units/volume] in Serum or Pl asma 90 mg/dL 46-116 [facility] ([facility]) Calcium [Mass/volume] in Serum or Plasma 9.4 mg/dL 8.5-10.1 [facility] ([facility]) Total Bilirubin 0.6 mg/dL 0.2-1.0 [facility] ([facility]) Aspartate aminotransferase [Enzymatic activity/volume] in Serum or Plasma 27 U/L 15-37 [facility] ([facility]) Alanine aminotransferase [Enzymatic activity/volume] in Seru m or Plasma 46 U/L 12-78 [facility] ([facility]) Proteinase 3 Ab [Units/volume] in Serum 6.7 g/dL 6.4-8.2 [facility] ([facility]) Albumin [Mass/volume] in Serum or Plasma 3.6 g/dL 3.4-5.0 [facility] ([facility]) A/G Ratio 1.16 CALC 1.00-1.90 [facility] ([facility]) Glomerular filtration rate/1.73 sq M pre dicted among non-blacks [Volume Rate/Area] in Serum or Plasma by Creatinine-based formula (MDRD) 24 mL/min [facility] ([facility]) Glomerular filtration rate/1.73 sq M pre dicted among blacks [Volume Rate/Area] in Serum or Plasma by Creatinine-based formula (MDRD) 29 mL/min [facility] ([facility]) <content>CHRONIC KIDNEY DISEASE STAGING PER NKF</content>
<content></content>
<content>STAGE I & II GFR >= 60 NORMAL TO MILDLY DECREASED</content>
<content>STAGE III GFR 30-59 MODERATELY DECREASED</content>
<content>STAGE IV GFR 15-29 SEVERELY DECREASED</content>
<content>STAGE V GFR <15 VERY LITTLE GFR LEFT</content>
<content>ESRD GFR <15 ON MEDICAL NURSE</content>
<content></content>
<content></content> ID Date Data Source [id number] 03/25/2021 02:23:00 PM EDT [facility] ([facility]) Name Value Range Interpretation Code Description Data Lillie rce(s) Supporting Document(s) Leukocytes [#/volume] in Blood by Automated count 6.0 x10*3/UL 4.1-10 .9 [facility] ([facility]) Hemoglobin [Mass/volume] in Blood 14.0 g/dL 12.0-18.0 [facility] ([facility]) Erythrocytes [#/volume] in Blood by Automated count 4.83 x10*6/UL 4.2 0-6.30 [facility] ([facility]) MCV 86.4 fL 80.0-97.0 [facility] ([facility]) Hematocrit [Volume Fraction] of Blood by Automated count 41.8 % 3 7.0-51.0 [facility] ([facility]) MCHC 33.5 g/dL 31.0-38.0 [facility] ([facility]) MCH 28.9 pg 26.0-32.0 [facility] ([facility]) Platelet mean volume [Entitic volume] in Blood by Ronald 8.1 FL 7.8-11.0 [facility] ([facility]) Erythrocyte distribution width [Ratio] by Automated count 14.9 % 11.6-13.7 [facility] ([facility]) Platelets [#/volume] in Blood by Automated count 144 x10*3/UL 140-440 [facility] ([facility]) Lymphocytes/100 leukocytes in Blood by Automated count 19.8 % 10. 0-58.5 [facility] ([facility]) Mid % 6.5 % 1.7-9.3 [facility] ([facility]) Neut % 73.7 % 37.0-92.0 [facility] ([facility]) Lymph # 1.2 x10*3/UL 0.6-4.1 [facility] ([facility]) Mid # 0.4 x10*3/UL 0.1-0.6 [facility] ([facility]) Neutrophils [#/volume] in Semen by Manual count 4.4 x10*3/UL 2.0-7.8 [facility] ([facility]) ID Date Data Source [id number] 03/25/2021 02:23:00 PM EDT [facility] ([facility]) Name Value Range Interpretation Code Description Data Lillie rce(s) Supporting Document(s) Glucose [Mass/volume] in Serum or Plasma 84 mg/dL 74-99 [facility] ([facility]) 100-125 mg/dL PRE-DIABETES/FASTING >126 mg/dL DIABETES/FASTING Urea nitrogen [Mass/volume] in Serum or Plasma 53 mg/dL 7-18 [facility] ([facility]) Creatinine 2.6 mg/dL 0.6-1.3 [facility] ([place] [facility] Chloride [Moles/volume] in Serum or Plasma 109 meq/L 98-107 [facility] ([facility]) Potassium [Moles/volume] in Serum or Plasma 5.1 meq/L 3.5-5.1 [facility] ([facility]) Sodium [Moles/volume] in Serum or Plasma 139 meq/L 136-145 [facility] ([facility]) Calcium [Mass/volume] in Serum or Plasma 9.4 mg/dL 8.5-10.1 [facility] ([facility]) Carbon dioxide, total [Moles/volume] in Serum or Plasma 27 meq/L 21 -32 [facility] ([facility]) Total Bilirubin 0.6 mg/dL 0.2-1.0 [facility] ([facility]) Alkaline phosphatase isoenzyme [Units/volume] in Serum or Pl asma 90 mg/dL 46-116 [facility] ([facility]) Aspartate aminotransferase [Enzymatic activity/volume] in Serum or Plasma 27 U/L 15-37 [facility] ([facility] ) Albumin [Mass/volume] in Serum or Plasma 3.6 g/dL 3.4-5.0 [facility] ([facility]) Alanine aminotransferase [Enzymatic activity/volume] in Seru m or Plasma 46 U/L 12-78 [facility] ([facility]) Proteinase 3 Ab [Units/volume] in Serum 6.7 g/dL 6.4-8.2 [facility] ([facility]) A/G Ratio 1.16 CALC 1.00-1.90 [facility] ([place] [facility]) Glomerular filtration rate/1.73 sq M pre dicted among non-blacks [Volume Rate/Area] in Serum or Plasma by Creatinine-based formula (MDRD) 24 mL/min [facility] ([facility]) Glomerular filtration rate/1.73 sq M pre dicted among blacks [Volume Rate/Area] in Serum or Plasma by Creatinine-based formula (MDRD) 29 mL/min [facility] ([facility]) <content>CHRONIC KIDNEY DISEASE STAGING PER NKF</content>
<content></content>
<content>STAGE I & II GFR >= 60 NORMAL TO MILDLY DECREASED</content>
<content>STAGE III GFR 30-59 MODERATELY DECREASED</content>
<content>STAGE IV GFR 15-29 SEVERELY DECREASED</content>
<content>STAGE V GFR <15 VERY LITTLE GFR LEFT</content>
<content>ESRD GFR <15 ON MEDICAL NURSE</content>
<content></content> ID Date Data Source [id number] 03/25/2021 02:23:00 PM EDT [facility] ([facility]) Name Value Range Interpretation Code Description Data Lillie rce(s) Supporting Document(s) Natriuretic peptide B [Mass/volume] in Serum or Plasma 794.0 pg/mL 0.0-100.0 [facility] ([facility]) ID Date Data Source [id number] 03/25/2021 02:23:00 PM EDT [facility] ([facility]) Name Value Range Interpretation Code Description Data Lillie rce(s) Supporting Document(s) Leukocytes [#/volume] in Blood by Automated count 6.0 x10*3/UL 4.1-10 .9 [facility] ([facility]) Erythrocytes [#/volume] in Blood by Automated count 4.83 x10*6/UL 4.2 0-6.30 [facility] ([facility]) Hematocrit [Volume Fraction] of Blood by Automated count 41.8 % 3 7.0-51.0 [facility] ([facility]) Hemoglobin [Mass/volume] in Blood 14.0 g/dL 12.0-18.0 [facility] ([facility]) MCH 28.9 pg 26.0-32.0 [facility] [facility] MCV 86.4 fL 80.0-97.0 [facility] [facility] MCHC 33.5 g/dL 31.0-38.0 [facility] ([place] [facility]) Platelets [#/volume] in Blood by Automated count 144 x10*3/UL 140-440 [facility] ([facility]) Erythrocyte distribution width [Ratio] by Automated count 14.9 % 11.6-13.7 [facility] ([facility]) MPV 8.1 FL 7.8-11.0 [facility] [facility] Lymph % 19.8 % 10.0-58.5 [facility] [facility] Mid % 6.5 % 1.7-9.3 [facility] [facility] Neut % 73.7 % 37.0-92.0 [facility] [facility] Lymph # 1.2 x10*3/UL 0.6-4.1 [facility] ([facility]) Mid # 0.4 x10*3/UL 0.1-0.6 [facility] ([facility]) Neut # 4.4 x10*3/UL 2.0-7.8 [facility] ([facility]) ID Date Data Source [id number] 03/25/2021 02:23:00 PM EDT [facility] ([facility]) Name Value Range Interpretation Code Description Data Lillie rce(s) Supporting Document(s) Glucose [Mass/volume] in Serum or Plasma 84 mg/dL 74-99 [facility] ([facility]) 100-125 mg/dL PRE-DIABETES/FASTING >126 mg/dL DIABETES/FASTING Creatinine [Mass/volume] in Serum or Plasma 2.6 mg/dL 0.6-1.3 Above high normal [facility] ([facility]) Urea nitrogen [Mass/volume] in Serum or Plasma 53 mg/dL 7-18 Above high normal [facility] ([facility]) Sodium [Moles/volume] in Serum or Plasma 139 meq/L 136-145 [facility] ([facility]) Potassium [Moles/volume] in Serum or Plasma 5.1 meq/L 3.5-5.1 [facility] ([facility]) Carbon dioxide, total [Moles/volume] in Serum or Plasma 27 meq/L 21 -32 [facility] ([facility]) Chloride [Moles/volume] in Serum or Plasma 109 meq/L 98-107 Abov e high normal [facility] ([facility]) Alkaline phosphatase isoenzyme [Units/volume] in Serum or Pl asma 90 mg/dL 46-116 [facility] ([facility]) Total Bilirubin 0.6 mg/dL 0.2-1.0 [facility] ([facility]) Calcium [Mass/volume] in Serum or Plasma 9.4 mg/dL 8.5-10.1 [facility] ([facility]) Aspartate aminotransferase [Enzymatic activity/volume] in Serum or Plasma 27 U/L 15-37 [facility] ([facility]) Proteinase 3 Ab [Units/volume] in Serum 6.7 g/dL 6.4-8.2 [facility] ([facility]) Alanine aminotransferase [Enzymatic activity/volume] in Seru m or Plasma 46 U/L 12-78 [facility] ([facility]) Albumin [Mass/volume] in Serum or Plasma 3.6 g/dL 3.4-5.0 [facility] ([facility]) Albumin/Globulin [Mass Ratio] in Serum or Plasma 1.16 CALC 1.00-1.90 [facility] ([facility]) Glomerular filtration rate/1.73 sq M pre dicted among non-blacks [Volume Rate/Area] in Serum or Plasma by Creatinine-based formula (MDRD) 24 mL/min Below low normal [facility] ([facility]) Glomerular filtration rate/1.73 sq M pre dicted among blacks [Volume Rate/Area] in Serum or Plasma by Creatinine-based formula (MDRD) 29 mL/min Below low normal [facility] ([facility]) <content>CHRONIC KIDNEY DISEASE STAGING PER NKF</content>
<content></content>
<content>STAGE I & II GFR >= 60 NORMAL TO MILDLY DECREASED</content>
<content>STAGE III GFR 30-59 MODERATELY DECREASED</content>
<content>STAGE IV GFR 15-29 SEVERELY DECREASED</content>
<content>STAGE V GFR <15 VERY LITTLE GFR LEFT</content>
<content>ESRD GFR <15 ON MEDICAL NURSE</content>
<content></content>
<content></content> ID Date Data Source [id number] 03/25/2021 02:23:00 PM EDT [facility] ([facility]) Name Value Range Interpretation Code Description Data Lillie rce(s) Supporting Document(s) Erythrocytes [#/volume] in Blood by Automated count 4.83 x10*6/UL 4.2 0-6.30 [facility] ([facility]) Leukocytes [#/volume] in Blood by Automated count 6.0 x10*3/UL 4.1-10 .9 [facility] ([facility]) Hematocrit [Volume Fraction] of Blood by Automated count 41.8 % 3 7.0-51.0 [facility] ([facility]) Hemoglobin [Mass/volume] in Blood 14.0 g/dL 12.0-18.0 [facility] ([facility]) MCV 86.4 fL 80.0-97.0 [facility] ([facility]) MCH 28.9 pg 26.0-32.0 [facility] ([facility]) MCHC 33.5 g/dL 31.0-38.0 [facility] ([facility]) Erythrocyte distribution width [Ratio] by Automated count 14.9 % 11.6-13.7 Above high normal [facility] ([facility]) Platelets [#/volume] in Blood by Automated count 144 x10*3/UL 140-440 [facility] ([facility]) Lymphocytes/100 leukocytes in Blood by Automated count 19.8 % 10. 0-58.5 [facility] ([facility]) Platelet mean volume [Entitic volume] in Blood by Ronald 8.1 FL 7.8-11.0 [facility] ([facility]) Laboratory test finding (navigational concept) 6.5 % 1.7-9.3 [facility] ([facility]) Neut % 73.7 % 37.0-92.0 [facility] ([facility]) Laboratory test finding (navigational concept) 0.4 x10*3/UL 0.1-0.6 [facility] ([facility]) Lymph # 1.2 x10*3/UL 0.6-4.1 [facility] ([facility]) Neutrophils [#/volume] in Semen by Manual count 4.4 x10*3/UL 2.0-7.8 [facility] ([facility]) ID Date Data Source [id number] 11/12/2020 06:04:00 PM EST [facility] Name Value Range Interpretation Code Description Data Lillie rce(s) Supporting Document(s) SARS coronavirus 2 RNA [Presence] in Res piratory specimen by ALL with probe detection NEGATIVE [facility] This lab was ordered by [facility] a nd reported by [facility]. ID Date Data Source [id number] 11/12/2020 06:04:00 PM EST [facility] ([facility]) Name Value Range Interpretation Code Description Data Lillie rce(s) Supporting Document(s) Laboratory test finding (navigational concept) Laboratory test result [facility] ([facility]) A false negative result may occur if a s pecimen is improperly collected, transported or handled. False negative results may also occur if inadequate numbers of organisms are present in the specimen. As with any molecular test, mutations within the target regions of [employer] SARS-CoV-2 could affect primer and/or probe binding resulting in failure to detect the presence of virus. This test cannot rule out diseases caused by other bacterial or viral pathogens. DISCLAIMER: Testing was performed using the [employer] SARS-CoV-2 test. This test was developed and its performance characteristics determined by [employer]. This test has not been FDA cleared or approved. This test has been authorized by FDA under an Emergency Use Authorization (EUA). This test is only authorized for the duration of time the declaration that circumstances exist justifying the authorization of the emergency use of in vitro diagnostic tests for detection of SARS-CoV-2 virus and/or diagnosis of COVID-19 infection under section 564(b)(1) of the Act, 21 U.S.C. 360bbb-3(b)(1), unless the authorization is terminated or revoked sooner. ID Date Data Source [id number] 11/12/2020 06:04:00 PM EST [facility] Name Value Range Interpretation Code Description Data Lillie rce(s) Supporting Document(s) White Blood Count 5.9 10 4.0-10.0 [facility] ([facility]) Red Blood Count 4.91 10 4.30-6.10 [facility] ([facility]) Hemoglobin 14.0 g/dL 13.5-17.5 [facility] ([facility]) Hematocrit 44.3 % 42.0-52.0 [facility] Mean Corpuscular Volume 90.2 fl 80.0-96.0 [facility] ([facility]) Mean Corpuscular Hemoglobin 28.5 pg 27.0-33.0 ME [facility] ([facility]) Red Cell Distribution Width 14.3 % 11.5-14.5 [facility] ([facility]) Mean Corpuscular HGB Conc 31.6 g/dL 32.0-36.5 MEDE NT ([facility]) Platelet Count, Automated 147 10 150-450 [facility] NT ([facility]) Neutrophils % 83.9 % 36.0-66.0 [facility] ([facility]) Lymph % 9.2 % 24.0-44.0 [facility] [facility] [place] % 6.0 % 0.0-5.0 [facility] ([place] [facility]) Baso % 0.3 % 0.0-1.0 [facility] [facility] Eos % 0.3 % 0.0-3.0 [facility] ([place] [facility]) Immature Granulocyte % 0.3 % 0-3.0 [facility] ([facility]) Nucleated Red Blood Cell % 0.0 % 0-0 MED E[facility] ([facility]) Neutrophils # 4.9 10 1.5-8.5 [facility] ([facility]) Lymph # 0.5 10 1.5-5.0 [facility] [facility] Eos # 0.0 10 0.0-0.5 [facility] ([place] [facility]) [place] # 0.4 10 0.0-0.8 [facility] ([place] [facility]) Baso # 0.0 10 0.0-0.2 [facility] ([place] [facility]) ID Date Data Source [id number] 11/12/2020 05:42:00 PM EST [facility] ([facility]) Name Value Range Interpretation Code Description Data Lillie rce(s) Supporting Document(s) Natriuretic peptide.B prohormone N-Terminal [Mass/volu me] in Serum or Plasma 9980 pg/mL MEDENT ([facility] ) Digoxin [Mass/volume] in Serum or Plasma 0.4 ng/mL 0.5-2.0 [facility] ([facility]) ID Date Data Source [id number] 11/12/2020 05:42:00 PM EST MEDENT ([facility]) Name Value Range Interpretation Code Description Data Lillie rce(s) Supporting Document(s) Glucose, Fasting 123 mg/dL 70-100 MED[facility] ([facility]) Creatinine For GFR 2.47 mg/dL 0.70-1.30 [facility] ([facility]) Blood Urea Nitrogen 44 mg/dL 7-18 [facility] ([facility]) Glomerular Filtration Rate 27.3 MED ENT ([facility]) <content>Units are mL/min/1.73 m2</content>
<content></content>
<content>Chronic Kidney Disease Staging per NKF:</content>
<content></content>
<content>Stage I & II GFR >=60 Normal to Mildly Decreased</content>
<content>Stage III GFR 30- 59 Moderately Decreased</content>
<content>Stage IV GFR 15-29 Severely Decreased</content>
<content>Stage V GFR <15 Very Little GFR Left</content>
<content>ESRD GFR <15 on MEDICAL NURSE</content>
<content></content> Sodium Level 138 meq/L 136-145 [facility] ([facility]) Chloride Level 106 meq/L 98-107 MED[facility] ([facility]) Potassium Serum 5.1 meq/L 3.5-5.1 MED[facility] ([facility]) Anion Gap 6 meq/L 8-16 [facility] [facility]) Carbon Dioxide Level 26 meq/L 21-32 MEDENT ([facility]) Calcium Level 9.1 mg/dL 8.8-10.2 MEDENT ([facility]) Phosphorus Level 4.2 mg/dL 2.5-4.9 MEDENT ([facility]) Albumin 3.9 GM/DL 3.2-5.2 [facility] ([place] [facility]) ID Date Data Source [id number] 11/12/2020 08:29:00 AM EST [facility]) Name Value Range Interpretation Code Description Data Lillie rce(s) Supporting Document(s) White Blood Count 5.9 4.3-10.9 MEDENT ([facility]) Red Blood Count 4.91 4.70-6.20 MEDENT ([facility]) Platelets 147 130-400 [facility] Hemoglobin 14.0 13.0-17.0 MEDENT ([facility]) Hematocrit 44.3 39.0-50.0 MEDENT ([facility]) ID Date Data Source [id number] 11/12/2020 08:29:00 AM EST [facility] Name Value Range Interpretation Code Description Data Lillie rce(s) Supporting Document(s) Misc Laboratory test result MEDENT ([facility]iology [facility]) ID Date Data Source [id number] 11/12/2020 08:00:00 AM EST [facility]) Name Value Range Interpretation Code Description Data Lillie rce(s) Supporting Document(s) Natriuretic peptide.B prohormone N-Terminal [Mass/volu me] in Serum or Plasma 9980 pg/mL MEDENT ([facility]) Digoxin [Mass/volume] in Serum or Plasma 0.4 ng/mL 0.5-2.0 MEDENT ([facility]) ID Date Data Source [id number] 11/12/2020 08:00:00 AM EST [facility] Name Value Range Interpretation Code Description Data Lillie rce(s) Supporting Document(s) Glucose, Fasting 123 mg/dL 70-100 [facility]) Blood Urea Nitrogen 44 mg/dL 7-18 MEDENT ([facility]) Glomerular Filtration Rate 27.3 MED ENT ([facility]) <content>Units are mL/min/1.73 m2</content>
<content></content>
<content>Chronic Kidney Disease Staging per NKF:</content>
<content></content>
<content>Stage I & II GFR >=60 Normal to Mildly Decreased</content>
<content>Stage III GFR 30- 59 Moderately Decreased</content>
<content>Stage IV GFR 15-29 Severely Decreased</content>
<content>Stage V GFR <15 Very Little GFR Left</content>
<content>ESRD GFR <15 on MEDICAL NURSE</content>
<content></content> Creatinine For GFR 2.47 mg/dL 0.70-1.30 MEDENT ([facility]) Sodium Level 138 meq/L 136-145 MEDENT ([facility]) Potassium Serum 5.1 meq/L 3.5-5.1 MEDENT ([facility]) Carbon Dioxide Level 26 meq/L 21-32 MEDENT ([facility]di[facility]) Anion Gap 6 meq/L 8-16 [facility] Chloride Level 106 meq/L 98-107 MEDENT ([facility]iol [facility]) Phosphorus Level 4.2 mg/dL 2.5-4.9 MEDENT ([facility]i [facility]) Calcium Level 9.1 mg/dL 8.8-10.2 MEDENT ([facility]iol[facility]) Albumin 3.9 GM/DL 3.2-5.2 [facility] ID Date Data Source [id number] 11/02/2020 10:58:00 AM EST MEDENT ([facility]) Name Value Range Interpretation Code Description Data Lillie rce(s) Supporting Document(s) Urate [Mass/volume] in Serum or Plasma 5.8 mg/dL 3.5-7.2 MEDENT ([facility]) Parathyrin.intact [Mass/volume] in Serum or Plasma 36.7 pg/mL 18.5-88 .0 MEDENT ([facility]) ID Date Data Source [id number] 11/02/2020 10:57:00 AM EST MEDENT ([facility]) Name Value Range Interpretation Code Description Data Lillie rce(s) Supporting Document(s) Glucose [Mass/volume] in Serum or Plasma 71 mg/dL 74-99 MEDENT ([facility]) 100-125 mg/dL PRE-DIABETES/FASTING >126 mg/dL DIABETES/FASTING Creatinine 2.4 mg/dL 0.6-1.3 [facility] ([facility] [facility]) Urea nitrogen [Mass/volume] in Serum or Plasma 31 mg/dL 7-18 MED[facility] ([facility]) Sodium [Moles/volume] in Serum or Plasma 139 meq/L 136-145 MED[facility] ([facility]) Potassium [Moles/volume] in Serum or Plasma 4.7 meq/L 3.5-5.1 MED[facility] ([facility]) Chloride [Moles/volume] in Serum or Plasma 102 meq/L 98-107 MED[facility] ([facility]) Carbon dioxide, total [Moles/volume] in Serum or Plasma 29 meq/L 21 -32 MED[facility] ([facility]) Calcium [Mass/volume] in Serum or Plasma 8.9 mg/dL 8.5-10.1 [facility] Glomerular filtration rate/1.73 sq M pre dicted among blacks [Volume Rate/Area] in Serum or Plasma by Creatinine-based formula (MDRD) 32 mL/min [facility] <content>CHRONIC KIDNEY DISEASE STAGING PER NKF</content>
<content></content>
<content>STAGE I & II GFR >= 60 NORMAL TO MILDLY DECREASED</content>
<content>STAGE III GFR 30-59 MODERATELY DECREASED</content>
<content>STAGE IV GFR 15-29 SEVERELY DECREASED</content>
<content>STAGE V GFR <15 VERY LITTLE GFR LEFT</content>
<content>ESRD GFR <15 ON MEDICAL NURSE</content>
<content></content> Glomerular filtration rate/1.73 sq M pre dicted among non-blacks [Volume Rate/Area] in Serum or Plasma by Creatinine-based formula (MDRD) 27 mL/min [facility] ID Date Data Source [id number] 10/15/2020 09:43:00 AM EST MEDENT ([facility]) Name Value Range Interpretation Code Description Data Lillie rce(s) Supporting Document(s) Digoxin [Mass/volume] in Serum or Plasma 0.6 ng/mL 0.5-2.0 [facility] ID Date Data Source [id number] 10/15/2020 09:42:00 AM EST MEDENT ([facility]) Name Value Range Interpretation Code Description Data Lillie rce(s) Supporting Document(s) Cholesterol [Mass/volume] in Serum or Plasma 137 mg/dL 131-200 MED[facility] ([facility]) Triglyceride [Mass/volume] in Serum or Plasma 49 mg/dL 30-150 [facility] ([facility]) Cholesterol in HDL [Mass/volume] in Serum or Plasma 52 mg/dL 35-60 [facility] ([facility]) Cholesterol in LDL [Mass/volume] in Serum or Plasma by calcu lation 75 CALC 50-159 [facility] ([facility]) ID Date Data Source [id number] 10/15/2020 09:42:00 AM EST MEDENT ([facility]) Name Value Range Interpretation Code Description Data Lillie rce(s) Supporting Document(s) Glucose [Mass/volume] in Serum or Plasma 90 mg/dL 74-99 [facility] ([facility]) 100-125 mg/dL PRE-DIABETES/FASTING >126 mg/dL DIABETES/FASTING Urea nitrogen [Mass/volume] in Serum or Plasma 39 mg/dL 7-18 [facility] ([facility]) Creatinine 2.5 mg/dL 0.6-1.3 [facility] [facility] Potassium [Moles/volume] in Serum or Plasma 5.2 meq/L 3.5-5.1 [facility] ([facility]) NOTE: RESULT VERIFIED. NO VISIBLE HEMOLYSIS. Sodium [Moles/volume] in Serum or Plasma 145 meq/L 136-145 [facility] ([facility]) Chloride [Moles/volume] in Serum or Plasma 108 meq/L 98-107 [facility] ([facility]) Carbon dioxide, total [Moles/volume] in Serum or Plasma 27 meq/L 21 -32 [facility] ([facility]) Alkaline phosphatase isoenzyme [Units/volume] in Serum or Pl asma 101 mg/dL 46-116 MED[facility] ([facility]) Calcium [Mass/volume] in Serum or Plasma 8.9 mg/dL 8.5-10.1 [facility] ([facility]) Total Bilirubin 0.6 mg/dL 0.2-1.0 MED[facility] ([facility]) Aspartate aminotransferase [Enzymatic activity/volume] in Serum or Plasma 41 U/L 15-37 MED[facility] ([facility] ) Alanine aminotransferase [Enzymatic activity/volume] in Seru m or Plasma 47 U/L 12-78 MED[facility] ([facility]) Proteinase 3 Ab [Units/volume] in Serum 6.7 g/dL 6.4-8.2 [facility] ([facility]) Albumin [Mass/volume] in Serum or Plasma 3.6 g/dL 3.4-5.0 [facility] ([facility]) A/G Ratio 1.16 CALC 1.00-1.90 [facility] ([place] [facility]) Glomerular filtration rate/1.73 sq M pre dicted among non-blacks [Volume Rate/Area] in Serum or Plasma by Creatinine-based formula (MDRD) 25 mL/min [facility] Glomerular filtration rate/1.73 sq M pre dicted among blacks [Volume Rate/Area] in Serum or Plasma by Creatinine-based formula (MDRD) 31 mL/min [facility] ([facility]) <content>CHRONIC KIDNEY DISEASE STAGING PER NKF</content>
<content></content>
<content>STAGE I & II GFR >= 60 NORMAL TO MILDLY DECREASED</content>
<content>STAGE III GFR 30-59 MODERATELY DECREASED</content>
<content>STAGE IV GFR 15-29 SEVERELY DECREASED</content>
<content>STAGE V GFR <15 VERY LITTLE GFR LEFT</content>
<content>ESRD GFR <15 ON MEDICAL NURSE</content>
<content></content> ID Date Data Source [id number] 10/15/2020 09:42:00 AM EST MEDENT ([facility]) Name Value Range Interpretation Code Description Data Lillie rce(s) Supporting Document(s) Erythrocytes [#/volume] in Blood by Automated count 4.82 x10*6/UL 4.2 0-6.30 [facility] ([facility]) Leukocytes [#/volume] in Blood by Automated count 4.5 x10*3/UL 4.1-10 .9 [facility] ([facility]) Hematocrit [Volume Fraction] of Blood by Automated count 41.5 % 3 7.0-51.0 [facility] ([facility]) Hemoglobin [Mass/volume] in Blood 14.1 g/dL 12.0-18.0 [facility] ([facility]) MCV 86.1 fL 80.0-97.0 [facility] [facility]) MCHC 34.0 g/dL 31.0-38.0 [facility] [facility] MCH 29.3 pg 26.0-32.0 [facility] [facility] Platelets [#/volume] in Blood by Automated count 135 x10*3/UL 140-440 [facility] ([facility]) Erythrocyte distribution width [Ratio] by Automated count 14.2 % 11.6-13.7 [facility] ([facility]) Lymph % 19.9 % 10.0-58.5 [facility] [facility] MPV 9.1 FL 7.8-11.0 [facility] [facility] Mid % 5.7 % 1.7-9.3 [facility] ([place] [facility] Neut % 74.4 % 37.0-92.0 [facility] [facility] Lymph # 0.9 x10*3/UL 0.6-4.1 [facility] ([facility]) Neut # 3.3 x10*3/UL 2.0-7.8 [facility] ([facility]) Mid # 0.3 x10*3/UL 0.1-0.6 [facility] ([facility]) ID Date Data Source [id number] 07/29/2020 12:00:00 AM EDT [facility] Catal[facility] MD Patient Name: ALEXEI CARR [id number] [facility] 1945[place] [id number] Date of Exam: 07/29/2020#: Fax: [phone] EXAM: ESOPHAGUS WITH CONTRAST X-RAYCLINICAL INFORMATION: Reflux disease.The procedure was performed by LLOYD Aguilera, under the directsupervision of Dr. Angelo.The images were reviewed with Dr. Angelo.Liquid barium and gas producing granules were given in the erect positionas well as liquid barium in the prone oblique position in order to performa double contrast esophagram examination.The oral and pharyngeal stages of deglutition are unremarkable. Esophagealtransport is prompt and efficient and there is no esophagitis, stricture ormucosal ring. There is a small sliding type hiatal hernia. There isgastroesophageal reflux demonstrated to the level of the radha.IMPRESSION:There is a small sliding type hiatal hernia. There is gastroesophagealreflux demonstrated to the level of the radha.Fluoroscopy time was 1 minute 38 seconds at 15 pulses/second. This isequal to 5.7 seconds continuous fluoroscopy time which is a 33% reductionin radiation.CARROLL Lynn/Keyana you for referring ALEXEI CARR to our office. Electronically Signed - SANYA ANGELO DO 07/30/20 15:41 Name Value Range Interpretation Code Description Data Lillie rce(s) Supporting Document(s) Procedure Social History Code Duration Value Status Description Data Source(s ) Alcohol intake 04/22/2021 12:00:00 AM EDT Ex-drinker (finding) comp leted Ex- drinker (finding) [facility] Tobacco use and exposure 04/22/2021 12:00:00 AM EDT Never used co mpleted Never used [facility] Smoking 04/22/2021 12:00:00 AM EDT Never smoker completed Never s moker [facility] Vital Signs ID Date Data Source UNK Name Value Range Interpretation Code Description Data Source(s) Body weight 154.00 [lb_av] 154.00 [lb_av] MEDEN T ([facility]) Body height 66 [in_i] 66 [in_i] [facility] 5'6" Body mass index (BMI) [Ratio] 24.9 kg/m2 24.9 k g/m2 [facility] ([facility]) Heart rate 60 /min 60 /min [facility] ([facility]) regular Respiratory rate 16 /min 16 /min [facility] ( [facility]) Systolic blood pressure--sitting 126 mm[Hg] 126 mm[Hg] [facility] ([facility]) Medium cuff, Ra Diastolic blood pressure--sitting 66 mm[Hg] 66 mm[Hg] [facility] ([facility]) Medium cuff, Ra Systolic blood pressure--supine 122 mm[Hg] 122 mm[Hg] [facility] ([facility]) Diastolic blood pressure--supine 68 mm[Hg] 68 mm[Hg] [facility] ([facility]) Diastolic blood pressure--supine 68 mm[Hg] 68 mm[Hg] [facility] ([facility]) Diastolic blood pressure--sitting 66 mm[Hg] 66 mm[Hg] [facility] ([facility]) Medium cuff, Ra Body height 66 [in_i] 66 [in_i] [facility] 5'6" Body mass index (BMI) [Ratio] 24.9 kg/m2 24.9 k g/m2 [facility] ([facility]) Body weight 154.00 [lb_av] 154.00 [lb_av] MEDEN T ([facility]) Heart rate 60 /min 60 /min [facility] ([facility]) regular Respiratory rate 16 /min 16 /min [facility] ( [facility]) Systolic blood pressure--sitting 120 mm[Hg] 120 mm[Hg] MED[facility] ([facility]) Medium cuff, Ra Systolic blood pressure--supine 124 mm[Hg] 124 mm[Hg] MED[facility] ([facility]) Heart rate 68 /min 68 /min MED[facility] ([facility]) Systolic blood pressure 128 mm[Hg] 128 mm[Hg] M EDENT ([facility]) Body height 66.75 [in_i] 66.75 [in_i] [facility] 5'6.75" Diastolic blood pressure 74 mm[Hg] 74 mm[Hg] MED[facility] ([facility]) Body weight 155.00 [lb_av] 155.00 [lb_av] MEDEN T ([facility]) Body mass index (BMI) [Ratio] 24.5 kg/m2 24.5 k g/m2 [facility] ([facility]) Systolic blood pressure 131 mm[Hg] 131 mm[Hg] [facility] Respiratory rate 16 /min 16 /min [facility] Oxygen saturation in Arterial blood by Pulse oximetry 98 % 98 % [facility] Heart rate 60 /min 60 /min [facility] Body temperature 36.5 Lucia 36.5 Lucia [facility] Diastolic blood pressure 79 mm[Hg] 79 mm[Hg] [facility] Body height 66 [in_i] 66 [in_i] MEDENT ([facility]) 5'6" Body weight 154.00 [lb_av] 154.00 [lb_av] MEDEN T ([facility]) Systolic blood pressure--sitting 123 mm[Hg] 123 mm[Hg] MED[facility] ([facility]) Medium cuff, Ra Body mass index (BMI) [Ratio] 24.9 kg/m2 24.9 k g/m2 [facility] ([facility]) Heart rate 60 /min 60 /min MED[facility] ([facility]) regular Respiratory rate 16 /min 16 /min MED[facility] ( [facility]) Diastolic blood pressure--sitting 66 mm[Hg] 66 mm[Hg] MEDENT ([facility]) Medium cuff, Ra Systolic blood pressure--supine 122 mm[Hg] 122 mm[Hg] MED[facility] ([facility]) Diastolic blood pressure--supine 68 mm[Hg] 68 mm[Hg] MED[facility] ([facility]) Body weight 154.00 [lb_av] 154.00 [lb_av] MEDEN T ([facility]) Body mass index (BMI) [Ratio] 24.9 kg/m2 24.9 k g/m2 MED[facility] ([facility]) Body height 66 [in_i] 66 [in_i] MEDENT ([facility]) 5'6" Heart rate 78 /min 78 /min MEDENT ([facility]) irregular Respiratory rate 16 /min 16 /min MED[facility] ( [facility]) Systolic blood pressure--sitting 116 mm[Hg] 116 mm[Hg] MED[facility] ([facility]) Medium cuff, Ra Diastolic blood pressure--sitting 60 mm[Hg] 60 mm[Hg] MED[facility] ([facility]) Medium cuff, Ra Systolic blood pressure--supine 108 mm[Hg] 108 mm[Hg] MED[facility] ([facility]) Diastolic blood pressure--supine 63 mm[Hg] 63 mm[Hg] MED[facility] ([facility]) Body weight 154.00 [lb_av] 154.00 [lb_av] MEDEN T ([facility]) Body height 66 [in_i] 66 [in_i] MEDENT ([facility]) 5'6" Body mass index (BMI) [Ratio] 24.9 kg/m2 24.9 k g/m2 MED[facility] ([facility]) Heart rate 46 /min 46 /min MED[facility] ([facility]) regular Respiratory rate 16 /min 16 /min MED[facility] ( [facility]) Systolic blood pressure--sitting 116 mm[Hg] 116 mm[Hg] MED[facility] ([facility]) Medium cuff, Ra Diastolic blood pressure--sitting 56 mm[Hg] 56 mm[Hg] MED[facility] ([facility]) Medium cuff, Ra Systolic blood pressure--supine 130 mm[Hg] 130 mm[Hg] MED[facility] ([facility]) Diastolic blood pressure--supine 62 mm[Hg] 62 mm[Hg] MED[facility] ([facility]) Diastolic blood pressure 74 mm[Hg] 74 mm[Hg] MEDENT ([facility]) Heart rate 72 /min 72 /min MEDENT ([facility]) Systolic blood pressure 132 mm[Hg] 132 mm[Hg] M EDENT ([facility]) Body height 66.75 [in_i] 66.75 [in_i] MEDENT ([facility]) 5'6.75" Body weight 155.00 [lb_av] 155.00 [lb_av] MEDEN T ([facility]) Body mass index (BMI) [Ratio] 24.5 kg/m2 24.5 k g/m2 MED[facility] ([facility]) Body weight 154.00 [lb_av] 154.00 [lb_av] MEDEN T ([facility]) Body height 66 [in_i] 66 [in_i] MED[facility] ([facility]) 5'6" Diastolic blood pressure--sitting 70 mm[Hg] 70 mm[Hg] MED[facility] ([facility]) Medium cuff, Ra Systolic blood pressure--supine 119 mm[Hg] 119 mm[Hg] MED[facility] ([facility]) Body mass index (BMI) [Ratio] 24.9 kg/m2 24.9 k g/m2 [facility] ([facility]) Heart rate 64 /min 64 /min [facility] ([facility]) irregular Respiratory rate 16 /min 16 /min [facility] ( [facility]) Systolic blood pressure--sitting 126 mm[Hg] 126 mm[Hg] MED[facility] ([facility]) Medium cuff, Ra Diastolic blood pressure--supine 68 mm[Hg] 68 mm[Hg] MED[facility] ([facility]) [place] body weight 148 [lb_av] 148 [lb_av] MEDEN T ([facility], ) Body weight 152.00 [lb_av] 152.00 [lb_av] MEDEN T ([facility], ) Body mass index (BMI) [Ratio] 23.8 kg/m2 23.8 k g/m2 MEDENT ([facility], ) Body height 67 [in_i] 67 [in_i] DEA ([facility], ) 5'7" Body weight 68.947 kg 68.947 kg DEA ([facility], ) Patient Treatment Plan of Care Planned Activity Planned Date Details Description Data Source (s) sodium chloride 0.9% (NS) infusion 04/22/2021 01:00:00 PM EDT [facility] normal saline flush 0.9 % injection 3 mL 04/22/2021 09:00:00 AM EDT [facility] normal saline flush 0.9 % injection 3 mL 04/22/2021 07:00:00 AM EDT [facility] Acetaminophen 325 MG Oral Tablet 04/22/2021 06:35:37 AM EDT [facility] clopidogrel 75 MG Oral Tablet 04/19/2021 12:00:00 AM EDT [facility]
[2021-09-22] MEDS ORDERED: LIDOCAINE 1% SDV 5ML VIAL As Ordered ONE (06:29)
[2021-09-22] MEDS ORDERED: MAXITROL OPHTH SUSP 5 ML As Ordered ONE (06:31)
[2021-09-22] MEDS ORDERED: TOBRADEX OPHTH SUSP 2.5 ML As Ordered ONE (06:31)
[2021-09-22] MEDS ORDERED: DUOVISC (0.50ML VISCOAT/0.85ML PROVISC) OPHTH KIT As Ordered ONE (06:41)
[2021-09-22] MEDS ORDERED: LR 1,000 ML IV SCH (07:00)
[2021-09-22] MEDS ORDERED: MIDAZOLAM INJ 2MG/2ML VIAL (J2250 PER 1MG) As Ordered ONE (07:42)
[2021-09-22] MEDS ORDERED: fentaNYL 100 MCG/2 ML INJECTION (J3010) As Ordered ONE (07:42)
[2021-09-22 08:40] VITALS: BP 140/78
--- NOTE | 2021-09-22 15:45 | ROOPDOC ---
[facility] Report Of Operation Report of Operation DATE OF PROCEDURE: 09/22/21 PREPROCEDURE DIAGNOSES: Cataract right eye. POSTPROCEDURE DIAGNOSES: Same. PROCEDURE PERFORMED: Cataract extraction with intraocular lens implantation right eye. SURGEON: Quentin Palmer MD [employer] RETURNER: None ANESTHESIA: Local ESTIMATED BLOOD LOSS: None. COMPLICATIONS: None. SPECIMENS REMOVED: None DESCRIPTION OF PROCEDURE: The patient was brought to the operating room and prepped and draped in the usual sterile fashion and an eyelid speculum was inserted in the right eye. A paracentesis was made and the anterior chamber was inflated with non-preserved lidocaine. This was followed by injection of Viscoat. A groove was made in the temporal clear cornea which was tunneled forward with the crescent blade and the anterior chamber was entered with a 2.75 keratome. The cystotome was used to make an incision in the center of the capsule and a continuous curvilinear capsulorhexis was created. The lens was hydrodissected until it was found to rotate freely within the capsular bag. Phacoemulsification was then used to remove the lens in its entirety. Irrigation and aspiration were used to remove residual cortical material. The anterior chamber and capsular bag were reinflated with Provisc and a 21.0 diopter SN60AT lens was injected into the capsular bag using the Alpha injector. The lens was dialed into place using the Sinskey hook. Irrigation and aspiration were used to remove residual viscoelastic. The wound was stromally hydrated until was found to be watertight and the eye was in an appropriate pressure. The eyelid speculum was removed from the eye and Maxitrol drops were placed over the right eye. The patient was transferred to the recovery room in stable condition and will follow up tomorrow. The total CDE was 14.14. QUENTIN PALMER MD Sep 22, 2021 15:45
== END 2021-09-22 08:41 | disposition home or self-care (01) ==
LOC: M SDC 06:01
PROVIDERS: ATTEND Ophthalmology
DX: H25.11 Age-related nuclear cataract, right eye (principal)
CPT/HCPCS: 66984; J2250; J3010; V2632

== ENCOUNTER → 2021-10-21 | Outpatient (REF) | payer MEDICARE ==
[~2021-10-21] MED LIST changes: -CYCLOPENTOLATE 1% OPHTH SOLN 2 ML BTL OD SCH; -FLURBIPROFEN 0.03% OPHTH SOLN 2.5 ML OD SCH; -PHENYLEPHRINE 2.5% OPHTH SOL 2ML OD SCH; -TETRACAINE 0.5% OPHTH SOLN 4ML OD SCH
[2021-10-21 14:49] LABS: DIGOXIN LEVEL 0.4 NG/ML (0.5-2.0)
== END ==
LOC: M LAB REF 14:00
PROVIDERS: ATTEND Internal Medicine
DX: N18.4 Chronic kidney disease, stage 4 (severe) (principal); I48.21 Permanent atrial fibrillation

== ENCOUNTER → 2022-05-07 | Outpatient (CLI) | payer MEDICARE ==
[~2022-05-07] MED LIST changes: -D31000TA2 PO; +VITA100093 PO; -VITA200015 PO; +VITA200035 PO
== END ==
LOC: M LABSMTC 10:17
PROVIDERS: ATTEND Nurse Practitioner Family
DX: Z01.812 Encounter for preprocedural laboratory examination (principal)

== ENCOUNTER 2022-05-13 15:58 | Emergency (ER) | payer MEDICARE ==
[2022-05-13 17:20] LABS: INR 1.29; PROTHROMBIN TIME 16.5 SECONDS (12.7-14.5)
[2022-05-13 17:21] LABS: PARTIAL THROMBOPLASTIN TIME 33.6 SECONDS (25.9-37.0)
[2022-05-13 17:43] LABS: ALBUMIN 1.9 GM/DL (3.2-5.2); BILIRUBIN,DIRECT 0.2 MG/DL (0.0-0.2); BILIRUBIN,TOTAL 0.5 MG/DL (0.2-1.0); CALCIUM LEVEL 5.5 MG/DL (8.8-10.2); CREATININE FOR GFR 1.33 MG/DL (0.70-1.30); GLOMERULAR FILTRATION RATE 55.5 (>42); POTASSIUM SERUM 2.7 MEQ/L (3.5-5.1); TOTAL PROTEIN 3.7 GM/DL (6.4-8.2)
[2022-05-13 17:44] LABS: BASO % 0.6 % (0.0-1.0); EOS # 0.1 10^3/uL (0.0-0.5); EOS % 1.3 % (0.0-3.0); HEMATOCRIT 43.4 % (42.0-52.0); LYMPH # 0.6 10^3/uL (1.5-5.0); LYMPH % 8.5 % (24.0-44.0); MEAN CORPUSCULAR HEMOGLOBIN 29.7 pg (27.0-33.0); MEAN CORPUSCULAR HGB CONC 32.3 g/dl (32.0-36.5); MEAN CORPUSCULAR VOLUME 92.1 fl (80.0-96.0); MONO # 0.8 10^3/uL (0.0-0.8); MONO % 11.6 % (2.0-8.0); NEUTROPHILS # 5.5 10^3/uL (1.5-8.5); NEUTROPHILS % 77.2 % (36.0-66.0); PLATELET COUNT, AUTOMATED 101 10^3/uL (150-450); RED BLOOD COUNT 4.71 10^6/uL (4.30-6.10); WHITE BLOOD COUNT 7.1 10^3/uL (4.0-10.0)
[2022-05-13 18:25] LABS: DIGOXIN LEVEL 0.4 NG/ML (0.5-2.0); FREE T4 1.05 NG/DL (0.76-1.46); MAGNESIUM LEVEL 1.1 MG/DL (1.8-2.4); THYROID STIMULATING HORMONE 2.33 uIU/ML (0.358-3.740)
[2022-05-13] MEDS ORDERED: ASPIRIN 81 MG CHEW TABLET PO ONE (19:25)
[2022-05-13 19:45] VITALS: BP 152/77
[2022-05-13 19:49] LABS: DIGOXIN LEVEL 0.6 NG/ML (0.5-2.0); MAGNESIUM LEVEL 1.8 MG/DL (1.8-2.4)
[2022-05-15 13:01] LABS: PTH INTACT 14.2 PG/ML (18.5-88.0); TOTAL 25(OH) VITAMIN D 56.7 NG/ML (30.0-100.0)
== END 2022-05-13 20:05 | disposition left against medical advice (07) ==
LOC: EDBD 15:58 → M ED 15:58
DX: G45.9 Transient cerebral ischemic attack, unspecified (principal); Z53.9 Procedure and treatment not carried out, unspecified reason; I48.91 Unspecified atrial fibrillation; Z79.899 Other long term (current) drug therapy

== ENCOUNTER → 2022-05-18 | Outpatient (REF) | payer MEDICARE | LOC: M LAB REF 12:22 | PROVIDERS: ATTEND Internal Medicine | DX: I48.21 Permanent atrial fibrillation (principal) ==

== ENCOUNTER → 2022-05-31 | Outpatient (CLI) | payer MEDICARE ==
[~2022-05-31] MED LIST changes: +ECOT81TA5 PO
== END ==
LOC: M LABSMTC 11:32
PROVIDERS: ATTEND Anesthesiology
DX: Z01.818 Encounter for other preprocedural examination (principal); Z11.52 Encounter for screening for COVID-19

== ENCOUNTER 2022-06-05 12:45 | Day surgery (SDC) | payer MEDICARE ==
[~2022-06-05] VITALS: Ht 170.2 cm; Wt 68.9 kg
[2022-06-05] MEDS ORDERED: NS 1,000 ML IV ONE (13:20)
[2022-06-05] MEDS ORDERED: LIDOCAINE VISCOUS 2% SOLN 15ML UDC As Ordered ONE (15:21)
[2022-06-05] MEDS ORDERED: MIDAZOLAM INJ 2MG/2ML VIAL (J2250 PER 1MG) As Ordered ONE ×3 (15:21→15:39)
[2022-06-05 16:35] VITALS: BP 154/80
== END 2022-06-05 16:38 | disposition home or self-care (01) ==
LOC: M OPP 12:45
PROVIDERS: ATTEND Internal Medicine Cardiovascular Disease
DX: I70.0 Atherosclerosis of aorta (principal); I35.1 Nonrheumatic aortic (valve) insufficiency
CPT/HCPCS: 93312; 93320; 93325; J2250

== ENCOUNTER → 2022-09-18 | Outpatient (CLI) | payer MEDICARE ==
[~2022-09-18] MED LIST changes: +OMEP40CA5 PO
== END ==
LOC: M LABSMTC 11:35
PROVIDERS: ATTEND Anesthesiology
DX: Z01.812 Encounter for preprocedural laboratory examination (principal); Z11.52 Encounter for screening for COVID-19

== ENCOUNTER 2022-09-21 07:39 | Day surgery (SDC) | payer MEDICARE ==
[~2022-09-21] VITALS: Ht 168.9 cm; Wt 70.0 kg
[~2022-09-21 07:39] MED LIST changes: +CYCLOPENTOLATE 1% OPHTH SOLN 2 ML BTL OS SCH; +FLURBIPROFEN 0.03% OPHTH SOLN 2.5 ML OS SCH; +LIDOCAINE 1% 1ML PF SYRINGE (OR EYE CASES) As Ordered ONE; +LR 1,000 ML IV SCH; +MAXITROL OPHTH SUSP 5 ML As Ordered ONE; +MIDAZOLAM INJ 2MG/2ML VIAL (J2250 PER 1MG) As Ordered ONE; +PHENYLEPHRINE 2.5% OPHTH SOL 2ML OS SCH; +PHENYLEPHRINE HCL 10 % OPHTH. SOL 5ML OS ONE; +TETRACAINE 0.5% OPHTH SOLN 4ML OS SCH; +fentaNYL 100 MCG/2 ML INJECTION As Ordered ONE
[2022-09-21 11:25] VITALS: BP 170/86
== END 2022-09-21 11:50 | disposition home or self-care (01) ==
LOC: M SDC 07:39
PROVIDERS: ATTEND Ophthalmology
DX: H25.12 Age-related nuclear cataract, left eye (principal); N18.4 Chronic kidney disease, stage 4 (severe); I13.0 Hypertensive heart and chronic kidney disease with heart failure and stage 1 through stage 4 chronic kidney disease, or unspecified chronic kidney disease; I48.21 Permanent atrial fibrillation; I50.32 Chronic diastolic (congestive) heart failure; I35.0 Nonrheumatic aortic (valve) stenosis; I77.810 Thoracic aortic ectasia; E79.0 Hyperuricemia without signs of inflammatory arthritis and tophaceous disease; Z86.73 Personal history of transient ischemic attack (TIA), and cerebral infarction without residual deficits; Z79.899 Other long term (current) drug therapy; Z79.01 Long term (current) use of anticoagulants; Z79.82 Long term (current) use of aspirin
CPT/HCPCS: 66984; J2250; J3010; V2632

== ENCOUNTER → 2022-11-16 | Outpatient (REF) | payer MEDICARE ==
[~2022-11-16] MED LIST changes: -CYCLOPENTOLATE 1% OPHTH SOLN 2 ML BTL OS SCH; -FLURBIPROFEN 0.03% OPHTH SOLN 2.5 ML OS SCH; -LIDOCAINE 1% 1ML PF SYRINGE (OR EYE CASES) As Ordered ONE; -LR 1,000 ML IV SCH; -MAXITROL OPHTH SUSP 5 ML As Ordered ONE; -MIDAZOLAM INJ 2MG/2ML VIAL (J2250 PER 1MG) As Ordered ONE; -PHENYLEPHRINE 2.5% OPHTH SOL 2ML OS SCH; -PHENYLEPHRINE HCL 10 % OPHTH. SOL 5ML OS ONE; -TETRACAINE 0.5% OPHTH SOLN 4ML OS SCH; -fentaNYL 100 MCG/2 ML INJECTION As Ordered ONE
[2022-11-16 12:56] LABS: URIC ACID 6.1 MG/DL (3.7-9.2)
[2022-11-16 12:58] LABS: DIGOXIN LEVEL 0.9 NG/ML (0.8-2.0)
== END ==
LOC: M LAB REF 12:06
PROVIDERS: ATTEND Internal Medicine
DX: I48.21 Permanent atrial fibrillation (principal); M10.9 Gout, unspecified

== ENCOUNTER → 2023-01-10 | Outpatient (REF) | payer MEDICARE ==
[~2023-01-10] MED LIST changes: +ENAL1TAB48 PO; -ENAL5TA PO
[2023-01-10 18:36] LABS: POTASSIUM SERUM 4.7 MMOL/L (3.5-5.1)
== END ==
LOC: M LAB REF 17:45
PROVIDERS: ATTEND Nurse Practitioner Family
DX: N18.32 Chronic kidney disease, stage 3b (principal)

== ENCOUNTER → 2023-10-03 | Outpatient (CLI) | payer MEDICARE | LOC: M RAD 11:00 | PROVIDERS: ATTEND Internal Medicine Critical Care Medicine | DX: R04.2 Hemoptysis (principal) ==

== ENCOUNTER → 2023-10-03 | Outpatient (CLI) | payer MEDICARE | LOC: M RAD 09:33 | PROVIDERS: ATTEND Internal Medicine | DX: G45.9 Transient cerebral ischemic attack, unspecified (principal) ==

== ENCOUNTER → 2023-10-17 | Outpatient (CLI) | payer MEDICARE | LOC: M LAB 09:56 | PROVIDERS: ATTEND Internal Medicine Cardiovascular Disease | DX: G45.9 Transient cerebral ischemic attack, unspecified (principal); Z95.2 Presence of prosthetic heart valve ==

== ENCOUNTER 2023-11-24 17:19 | Emergency (ER) | payer MEDICARE ==
[~2023-11-24] VITALS: Ht 167.6 cm; Wt 69.2 kg
[2023-11-24 17:19] VITALS: TEMP 99.7
[2023-11-24] MEDS ORDERED: ALLO100T (17:31)
[2023-11-24 18:34] LABS: BASO % 0.3 % (0.0-1.0); HEMATOCRIT 46.5 % (42.0-52.0); HEMOGLOBIN 15.2 g/dl (13.5-17.5); LYMPH # 0.3 10^3/uL (1.5-5.0); MEAN CORPUSCULAR HEMOGLOBIN 28.7 pg (27.0-33.0); MEAN CORPUSCULAR HGB CONC 32.7 g/dl (32.0-36.5); MEAN CORPUSCULAR VOLUME 87.7 fl (80.0-96.0); MONO # 0.3 10^3/uL (0.0-0.8); MONO % 8.3 % (2.0-8.0); NEUTROPHILS # 3.1 10^3/uL (1.5-8.5); NEUTROPHILS % 83.9 % (36.0-66.0); PLATELET COUNT, AUTOMATED 107 10^3/uL (150-450); WHITE BLOOD COUNT 3.7 10^3/uL (4.0-10.0)
[2023-11-24 18:45] VITALS: BP 121/65
[2023-11-24 18:46] VITALS: O2SAT 97
[2023-11-24 18:58] LABS: ALBUMIN 3.3 G/DL (3.2-5.2); BILIRUBIN,DIRECT 0.3 MG/DL (<0.4); BILIRUBIN,TOTAL 0.7 MG/DL (0.3-1.2); CALCIUM LEVEL 8.5 MG/DL (8.3-10.6); CK-MB VALUE MASS 1.2 NG/ML (<3.6); CREATININE FOR GFR 1.97 MG/DL (0.70-1.30); GLOMERULAR FILTRATION RATE 35.2 (>42); POTASSIUM SERUM 4.4 MMOL/L (3.5-5.1); TOTAL PROTEIN 6.7 G/DL (5.7-8.2)
[2023-11-24 18:59] LABS: FREE T4 1.08 NG/DL (0.89-1.76); THYROID STIMULATING HORMONE 1.759 uIU/ML (0.55-4.78)
[2023-11-24 19:28] LABS: MB/CK RELATIVE INDEX 1.29 (< OR =4)
[2023-11-24] MEDS ORDERED: METOCLOPRAMIDE INJ 10MG/2ML VIAL IV ONE (20:40)
[2023-11-24 20:58] LABS: CK-MB VALUE MASS 1.2 NG/ML (<3.6)
[2023-11-24 20:59] LABS: MB/CK RELATIVE INDEX 1.66 (< OR =4)
[2023-11-24 22:45] LABS: CK-MB VALUE MASS 1.2 NG/ML (<3.6)
[2023-11-24 22:47] LABS: MB/CK RELATIVE INDEX 1.81 (< OR =4)
[2023-11-24] MEDS ORDERED: REGL10TA6 PO (23:28)
== END 2023-11-24 23:59 | disposition home or self-care (01) ==
LOC: M ED 17:19
DX: U07.1 COVID-19 (principal); R06.6 Hiccough; I10 Essential (primary) hypertension; E78.5 Hyperlipidemia, unspecified; I48.91 Unspecified atrial fibrillation; Z95.0 Presence of cardiac pacemaker; Z79.899 Other long term (current) drug therapy; Z79.1 Long term (current) use of non-steroidal anti-inflammatories (NSAID)
CPT/HCPCS: 71045; 80048; 80076; 82550; 82553; 83690; 84439; 84443; 84484; 85025; 87486; 87581; 87633; 87798; 93005; 93041; 94760; 96374; 99285; J2765

== ENCOUNTER → 2023-12-03 | Outpatient (REF) | payer MEDICARE ==
[~2023-12-03] MED LIST changes: +ALLO100T; +REGL10TA6 PO
== END ==
LOC: M LAB REF 18:09
PROVIDERS: ATTEND Internal Medicine
DX: I48.21 Permanent atrial fibrillation (principal)

== ENCOUNTER 2023-12-26 08:23 | Day surgery (SDC) | payer MEDICARE ==
[~2023-12-26] VITALS: Ht 170.2 cm; Wt 67.0 kg
[~2023-12-26 08:23] MED LIST changes: -ALLO100T; +ALLO100T PO; +NS 1,000 ML IV ONE
[2023-12-26] MEDS ORDERED: fentaNYL 100 MCG/2 ML INJECTION As Ordered ONE (10:18)
[2023-12-26] MEDS ORDERED: propofoL 200 MG/20 ML VIAL As Ordered ONE (10:18)
[2023-12-26] MEDS ORDERED: LIDOCAINE 2% 100MG/5ML SDV (FOR ANES.) As Ordered ONE (10:18)
[2023-12-26] MEDS ORDERED: ePHEDrine SULFATE 25 MG/5 ML(5MG/ML) SYRINGE As Ordered ONE (10:55)
[2023-12-26 11:13] VITALS: TEMP 97.2
[2023-12-26 11:32] VITALS: BP 120/60; O2SAT 98
== END 2023-12-26 11:47 | disposition home or self-care (01) ==
LOC: M OPP 08:23
PROVIDERS: ATTEND Internal Medicine Gastroenterology
DX: Z80.0 Family history of malignant neoplasm of digestive organs (principal); D12.2 Benign neoplasm of ascending colon; K64.0 First degree hemorrhoids; K31.89 Other diseases of stomach and duodenum; K21.00 Gastro-esophageal reflux disease with esophagitis, without bleeding; R12 Heartburn; I48.91 Unspecified atrial fibrillation; I25.119 Atherosclerotic heart disease of native coronary artery with unspecified angina pectoris; Z95.0 Presence of cardiac pacemaker; Z79.01 Long term (current) use of anticoagulants; Z79.02 Long term (current) use of antithrombotics/antiplatelets; Z79.82 Long term (current) use of aspirin; Z79.899 Other long term (current) drug therapy
CPT/HCPCS: 43239; 45385; 88305; J3010

== ENCOUNTER → 2024-02-12 | Outpatient (CLI) | payer MEDICARE ==
[~2024-02-12] MED LIST changes: -NS 1,000 ML IV ONE
[2024-02-12 18:04] LABS: ALBUMIN 3.6 G/DL (3.2-5.2); CALCIUM LEVEL 9.4 MG/DL (8.3-10.6); CREATININE FOR GFR 2.47 MG/DL (0.70-1.30); GLOMERULAR FILTRATION RATE 27.1 (>42); PHOSPHORUS LEVEL 4.3 MG/DL (2.4-5.1); POTASSIUM SERUM 5.6 MMOL/L (3.5-5.1)
== END ==
LOC: M RAD 16:34
PROVIDERS: ATTEND Internal Medicine Cardiovascular Disease
DX: I50.32 Chronic diastolic (congestive) heart failure (principal); R06.02 Shortness of breath

== ENCOUNTER → 2024-02-15 | Outpatient (CLI) | payer MEDICARE | LOC: M EKG 10:42 | PROVIDERS: ATTEND Internal Medicine Cardiovascular Disease | DX: I49.3 Ventricular premature depolarization (principal) ==

== ENCOUNTER → 2024-02-25 | Outpatient (CLI) | payer MEDICARE ==
[2024-02-25 13:04] LABS: ALBUMIN 3.5 G/DL (3.2-5.2); CALCIUM LEVEL 9.3 MG/DL (8.3-10.6); CREATININE FOR GFR 2.41 MG/DL (0.70-1.30); GLOMERULAR FILTRATION RATE 27.9 (>42); PHOSPHORUS LEVEL 3.5 MG/DL (2.4-5.1); POTASSIUM SERUM 5.3 MMOL/L (3.5-5.1)
== END ==
LOC: M LAB 10:04
PROVIDERS: ATTEND Internal Medicine Cardiovascular Disease
DX: I50.810 Right heart failure, unspecified (principal)

== ENCOUNTER → 2024-03-27 | Outpatient (CLI) | payer MEDICARE ==
[2024-03-27 14:00] LABS: BASO % 0.4 % (0.0-1.0); EOS # 0.1 10^3/uL (0.0-0.5); EOS % 1.7 % (0.0-3.0); HEMATOCRIT 38.5 % (42.0-52.0); HEMOGLOBIN 12.2 g/dl (13.5-17.5); LYMPH # 0.7 10^3/uL (1.5-5.0); LYMPH % 16.1 % (24.0-44.0); MEAN CORPUSCULAR HGB CONC 31.7 g/dl (32.0-36.5); MEAN CORPUSCULAR VOLUME 88.3 fl (80.0-96.0); MONO # 0.4 10^3/uL (0.0-0.8); MONO % 8.3 % (2.0-8.0); NEUTROPHILS # 3.3 10^3/uL (1.5-8.5); NEUTROPHILS % 72.8 % (36.0-66.0); PLATELET COUNT, AUTOMATED 111 10^3/uL (150-450); RED BLOOD COUNT 4.36 10^6/uL (4.30-6.10); WHITE BLOOD COUNT 4.6 10^3/uL (4.0-10.0)
[2024-03-27 14:23] LABS: ALBUMIN 3.1 G/DL (3.2-5.2); CALCIUM LEVEL 9.5 MG/DL (8.3-10.6); CREATININE FOR GFR 3.1 MG/DL (0.70-1.30); GLOMERULAR FILTRATION RATE 20.8 (>42); POTASSIUM SERUM 4.4 MMOL/L (3.5-5.1)
== END ==
LOC: M LAB 13:24
PROVIDERS: ATTEND Internal Medicine Cardiovascular Disease
DX: I25.10 Atherosclerotic heart disease of native coronary artery without angina pectoris (principal)

== ENCOUNTER → 2024-04-01 | Outpatient (CLI) | payer MEDICARE | LOC: M SLEEP HO 13:19 | PROVIDERS: ATTEND Internal Medicine Cardiovascular Disease | DX: I50.810 Right heart failure, unspecified (principal) ==

== ENCOUNTER → 2024-04-08 | Outpatient (REF) | payer MEDICARE ==
[2024-04-08 19:47] LABS: CREATININE FOR GFR 2.62 MG/DL (0.70-1.30); GLOMERULAR FILTRATION RATE 25.3 (>42)
== END ==
LOC: M LABDRAWC 17:51
PROVIDERS: ATTEND Internal Medicine Cardiovascular Disease
DX: I25.10 Atherosclerotic heart disease of native coronary artery without angina pectoris (principal)

== ENCOUNTER → 2024-04-08 | Outpatient (REF) | payer MEDICARE ==
[2024-04-08 19:28] LABS: BASO % 0.7 % (0.0-1.0); EOS # 0.1 10^3/uL (0.0-0.5); EOS % 1.5 % (0.0-3.0); HEMATOCRIT 40.9 % (42.0-52.0); HEMOGLOBIN 12.5 g/dl (13.5-17.5); LYMPH # 0.8 10^3/uL (1.5-5.0); MEAN CORPUSCULAR HEMOGLOBIN 27.1 pg (27.0-33.0); MEAN CORPUSCULAR HGB CONC 30.6 g/dl (32.0-36.5); MEAN CORPUSCULAR VOLUME 88.7 fl (80.0-96.0); MONO # 0.4 10^3/uL (0.0-0.8); MONO % 8.6 % (2.0-8.0); NEUTROPHILS # 3.3 10^3/uL (1.5-8.5); NEUTROPHILS % 71.8 % (36.0-66.0); PLATELET COUNT, AUTOMATED 136 10^3/uL (150-450); RED BLOOD COUNT 4.61 10^6/uL (4.30-6.10); WHITE BLOOD COUNT 4.5 10^3/uL (4.0-10.0)
[2024-04-08 19:50] LABS: ALBUMIN 3.1 G/DL (3.2-5.2); CALCIUM LEVEL 9.2 MG/DL (8.3-10.6); CREATININE FOR GFR 2.61 MG/DL (0.70-1.30); GLOMERULAR FILTRATION RATE 25.4 (>42); POTASSIUM SERUM 5.2 MMOL/L (3.5-5.1)
== END ==
LOC: M LABDRAWC 17:49
PROVIDERS: ATTEND Internal Medicine Cardiovascular Disease
DX: I50.32 Chronic diastolic (congestive) heart failure (principal); I35.0 Nonrheumatic aortic (valve) stenosis; I42.2 Other hypertrophic cardiomyopathy; I48.21 Permanent atrial fibrillation

== ENCOUNTER → 2024-06-02 | Outpatient (REF) | payer MEDICARE | LOC: M LAB REF 12:27 | PROVIDERS: ATTEND Internal Medicine | DX: I48.21 Permanent atrial fibrillation (principal) ==

== ENCOUNTER 2024-09-02 13:26 | Emergency (ER) | payer MEDICARE ==
[~2024-09-02] VITALS: Ht 169.5 cm; Wt 72.0 kg
[2024-09-02 13:59] LABS: BASO % 0.3 % (0.0-1.0); EOS % 0.1 % (0.0-3.0); HEMATOCRIT 38.7 % (42.0-52.0); HEMOGLOBIN 12.1 g/dl (13.5-17.5); LYMPH # 0.6 10^3/uL (1.5-5.0); MEAN CORPUSCULAR HEMOGLOBIN 28.1 pg (27.0-33.0); MEAN CORPUSCULAR HGB CONC 31.3 g/dl (32.0-36.5); MONO # 0.8 10^3/uL (0.0-0.8); MONO % 7.4 % (2.0-8.0); NEUTROPHILS % 85.6 % (36.0-66.0); PLATELET COUNT, AUTOMATED 168 10^3/uL (150-450); WHITE BLOOD COUNT 10.5 10^3/uL (4.0-10.0)
[2024-09-02] MEDS: ACETAMINOPHEN 325 MG TAB PO ONE (14:07)
[2024-09-02 14:12] LABS: INR 2.1; PARTIAL THROMBOPLASTIN TIME 31.5 SECONDS (24.8-34.2); PROTHROMBIN TIME 23.7 SECONDS (12.5-14.5)
[2024-09-02] MEDS ORDERED: TORS10TA3 PO (14:16)
[2024-09-02 14:29] LABS: C REACTIVE PROTEIN QUANTITATIV < 0.40 MG/DL (<1.0)
[2024-09-02 14:30] LABS: ALBUMIN 3.4 G/DL (3.2-5.2); ALKALINE PHOSPHATASE 106 U/L (40-129); ALT/SGPT 62 U/L (7.0-40); AMYLASE 173 U/L (30-118); AST/SGOT 109 U/L (<34); BILIRUBIN,DIRECT 0.5 MG/DL (<0.4); BLOOD UREA NITROGEN 45 MG/DL (9-23); CALCIUM LEVEL 9.7 MG/DL (8.3-10.6); CARBON DIOXIDE LEVEL 19 MMOL/L (20-31); CHLORIDE LEVEL 109 MMOL/L (98-107); CREATININE FOR GFR 2.35 MG/DL (0.70-1.30); GLOMERULAR FILTRATION RATE 28.6 (>42); GLUCOSE, FASTING 104 MG/DL (74-106); POTASSIUM SERUM 5.1 MMOL/L (3.5-5.1); SODIUM LEVEL 142 MMOL/L (136-145); TOTAL PROTEIN 6.8 G/DL (5.7-8.2)
[2024-09-02 14:37] LABS: PROCALCITONIN 0.13 ng/ml
[2024-09-02 14:46] LABS: DIGOXIN LEVEL 0.7 NG/ML (0.8-2.0)
[2024-09-02 14:59] LABS: APPEARANCE, URINE HAZY (CLEAR); BACTERIA, URINE AUTO NEGATIVE (NEGATIVE); BILIRUBIN, URINE AUTO NEGATIVE (NEGATIVE); BLOOD, URINE BLOOD 3+ (NEGATIVE); COLOR, URINE YELLOW (YELLOW); GLUCOSE, URINE (UA) AUTO NEGATIVE (NEGATIVE); KETONE, URINE AUTO NEGATIVE (NEGATIVE); LEUKOCYTE ESTERASE, URINE AUTO NEGATIVE (NEGATIVE); MUCUS, URINE SMALL (NEGATIVE); NITRITE, URINE AUTO NEGATIVE (NEGATIVE); PROTEIN, URINE AUTO 2+ mg/dL (NEGATIVE); RBC, URINE AUTO 108 /HPF (0-3); SPECIFIC GRAVITY URINE AUTO 1.014 (1.002-1.035); SQUAMOUS EPITHELIAL CELL UR AU 0 /HPF (0-6); WBC, URINE AUTO 4 /HPF (0-3)
[2024-09-02] MEDS: cefTRIAXone SOD 2 GM in DEXTROSE 5% (D5W) ADV/MINI-BAG 50 ML IV ONE (15:09)
[2024-09-02] MEDS: NS 1,000 ML IV ONE (15:09)
[2024-09-02] MEDS ORDERED: BISO5TAB14 PO (16:18)
[2024-09-02] MEDS ORDERED: HOME MED LIST COMPLETE! XX SCH (16:20)
[2024-09-02] MEDS: NS 1,000 ML IV SCH (16:33)
[2024-09-02] MEDS ORDERED: ACETAMINOPHEN 325 MG TAB PO PRN (22:30)
[2024-09-02] MEDS ORDERED: MOM 30ML SUSPENSION UDC PO PRN (22:30)
[2024-09-02] MEDS: ATORVASTATIN 20 MG TAB PO SCH (22:56)
[2024-09-02] MEDS: bisoproloL fumarate 5 MG TAB PO SCH (22:57)
[2024-09-02] MEDS: VANCOMYCIN 1,500 MG/300 ML IV BAG *LOAD IV ONE (22:58)
[2024-09-02 23:31] LABS: VENOUS BASE EXCESS -6.8 (-2.0-2.0); VENOUS HCO3 19.7 MMOL/L (23.0-27.0); VENOUS O2 SATURATION 70.7 % (60.0-80.0); VENOUS PARTIAL PRESSURE O2 43.3 mmHg (30.0-50.0); VENOUS PH 7.278 UNITS (7.330-7.430); VENOUS STANDARD HCO3 18.4 MMOL/L
[2024-09-03] MEDS: SODIUM BICARBONATE 325 MG TAB PO SCH (02:49)
[2024-09-03] MEDS: TORSEMIDE 10 MG TABLET PO SCH (09:56)
[2024-09-03] MEDS: DOCUSATE SODIUM 100MG CAPSULE PO SCH (09:56)
[2024-09-03] MEDS: allopurinoL 100 MG TAB PO SCH (09:57)
[2024-09-03] MEDS: OMEPRAZOLE 20MG CAP PO SCH (09:57)
[2024-09-03] MEDS: VITAMIN D 1,000 INTERNATIONAL UNITS TABLET PO SCH (09:57)
[2024-09-03] MEDS: ASPIRIN 81MG ENTERIC TABLET PO SCH (09:57)
[2024-09-03 10:47] LABS: HEMATOCRIT 33.9 % (42.0-52.0); HEMOGLOBIN 10.5 g/dl (13.5-17.5); MEAN CORPUSCULAR HEMOGLOBIN 27.9 pg (27.0-33.0); MEAN CORPUSCULAR VOLUME 90.2 fl (80.0-96.0); PLATELET COUNT, AUTOMATED 114 10^3/uL (150-450); RED BLOOD COUNT 3.76 10^6/uL (4.30-6.10); WHITE BLOOD COUNT 13.1 10^3/uL (4.0-10.0)
[2024-09-03 11:22] LABS: ALBUMIN 2.7 G/DL (3.2-5.2); BILIRUBIN,DIRECT 0.3 MG/DL (<0.4); BILIRUBIN,TOTAL 0.6 MG/DL (0.3-1.2); CREATININE FOR GFR 2.38 MG/DL (0.70-1.30); GLOMERULAR FILTRATION RATE 28.2 (>42); MAGNESIUM LEVEL 1.8 MG/DL (1.8-2.4); POTASSIUM SERUM 6.1 MMOL/L (3.5-5.1); TOTAL PROTEIN 5.6 G/DL (5.7-8.2)
[2024-09-03] MEDS: CALCIUM GLUCONATE 1,000 MG in DEXTROSE 5% (D5W) MINI-BAG PLU 100 ML IV ONE (11:35)
[2024-09-03 12:34] LABS: VANCOMYCIN RANDOM 14.4 UG/ML
[2024-09-03 12:35] LABS: POTASSIUM SERUM 4.8 MMOL/L (3.5-5.1)
[2024-09-03] MEDS: PATIROMER SORBITEX CALCIUM 8.4 GM POWDER PACKET (VELTASSA) PO ONE (12:37)
[2024-09-03] MEDS: VANCOMYCIN 750MG/150 ML IV BAG IV SCH (14:27)
[2024-09-03] MEDS: cefTRIAXone SOD 1 GM in DEXTROSE 5% (D5W) ADV/MINI-BAG 50 ML IV SCH (15:34)
[2024-09-03] MEDS ORDERED: VANCOMYCIN/WATER FOR INJ 1,000 MG in IV 1 EA IV SCH (21:00)
[2024-09-03] MEDS: DIGOXIN 0.125 MG TAB PO SCH (21:03)
[2024-09-03 21:04] VITALS: BP 123/73
[2024-09-04 10:30] VITALS: BP 135/79; TEMP 97.4; O2SAT 96
[2024-09-04 16:06] LABS: HEPATITIS B SURFACE ANTIGEN NEGATIVE (NEGATIVE)
[2024-09-04 16:27] LABS: HEPATITIS B CORE ANTIBODY IGM NEGATIVE (NEGATIVE); HEPATITIS C VIRUS ABY INDEX 0.04 INDEX (<0.8)
== END 2024-09-04 10:41 | disposition left against medical advice (07) ==
LOC: EDBD 13:26 → M ED 13:26
DX: E87.29 Other acidosis (principal); T82.7XXA Infection and inflammatory reaction due to other cardiac and vascular devices, implants and grafts, initial encounter; J90 Pleural effusion, not elsewhere classified; I48.91 Unspecified atrial fibrillation; I10 Essential (primary) hypertension; E78.5 Hyperlipidemia, unspecified; K21.9 Gastro-esophageal reflux disease without esophagitis; Z79.01 Long term (current) use of anticoagulants; Z79.1 Long term (current) use of non-steroidal anti-inflammatories (NSAID); Z79.899 Other long term (current) drug therapy; Z53.9 Procedure and treatment not carried out, unspecified reason
CPT/HCPCS: 71250; 74021; 74176; 80048; 80074; 80076; 80162; 80202; 81001; 82150; 82803; 83605; 83735; 84132; 84145; 85025; 85027; 85610; 85730; 86140; 86850; 86900; 86901; 87040; 87486; 87581; 87633; 87798; 93005; 93041; 94760; 96365; 96366; 96375; 99285; J0696; J3372

== ENCOUNTER → 2024-10-09 | Outpatient (REF) | payer MEDICARE ==
[~2024-10-09] MED LIST changes: +TORS10TA3 PO
== END ==
LOC: M LABDRAWC 17:23
PROVIDERS: ATTEND Internal Medicine Cardiovascular Disease
DX: T82.7XXA Infection and inflammatory reaction due to other cardiac and vascular devices, implants and grafts, initial encounter (principal); Y84.8 Other medical procedures as the cause of abnormal reaction of the patient, or of later complication, without mention of misadventure at the time of the procedure

== ENCOUNTER → 2024-10-20 | Outpatient (REF) | payer MEDICARE ==
[2024-10-20 17:54] LABS: HEMATOCRIT 31.2 % (42.0-52.0); HEMOGLOBIN 9.4 g/dl (13.5-17.5); MEAN CORPUSCULAR HGB CONC 30.1 g/dl (32.0-36.5); MEAN CORPUSCULAR VOLUME 86.2 fl (80.0-96.0); PLATELET COUNT, AUTOMATED 174 10^3/uL (150-450); RED BLOOD COUNT 3.62 10^6/uL (4.30-6.10); WHITE BLOOD COUNT 5.4 10^3/uL (4.0-10.0)
[2024-10-20 18:06] LABS: ERYTHROCYTE SEDIMENTATION RATE 60 mm/hr (0-20)
[2024-10-20 18:21] LABS: C REACTIVE PROTEIN QUANTITATIV 1.37 MG/DL (<1.0)
[2024-10-20 18:22] LABS: BILIRUBIN,TOTAL 0.5 MG/DL (0.3-1.2); CALCIUM LEVEL 9.8 MG/DL (8.3-10.6); CREATININE FOR GFR 2.76 MG/DL (0.70-1.30); GLOMERULAR FILTRATION RATE 23.8 (>42); POTASSIUM SERUM 4.9 MMOL/L (3.5-5.1)
== END ==
LOC: M SHH 16:44 → M LAB REF 16:44
DX: T82.7XXA Infection and inflammatory reaction due to other cardiac and vascular devices, implants and grafts, initial encounter (principal); Y83.1 Surgical operation with implant of artificial internal device as the cause of abnormal reaction of the patient, or of later complication, without mention of misadventure at the time of the procedure

== ENCOUNTER → 2024-10-27 | Outpatient (REF) | payer MEDICARE ==
[2024-10-27 18:34] LABS: HEMATOCRIT 32.8 % (42.0-52.0); MEAN CORPUSCULAR HGB CONC 30.5 g/dl (32.0-36.5); MEAN CORPUSCULAR VOLUME 85.4 fl (80.0-96.0); PLATELET COUNT, AUTOMATED 197 10^3/uL (150-450); RED BLOOD COUNT 3.84 10^6/uL (4.30-6.10); WHITE BLOOD COUNT 7.2 10^3/uL (4.0-10.0)
[2024-10-27 18:41] LABS: ERYTHROCYTE SEDIMENTATION RATE 76 mm/hr (0-20)
[2024-10-27 19:02] LABS: C REACTIVE PROTEIN QUANTITATIV 2.22 MG/DL (<1.0)
[2024-10-27 19:04] LABS: BILIRUBIN,TOTAL 0.5 MG/DL (0.3-1.2); CREATININE FOR GFR 2.23 MG/DL (0.70-1.30); GLOMERULAR FILTRATION RATE 30.4 (>42); POTASSIUM SERUM 4.3 MMOL/L (3.5-5.1); TOTAL PROTEIN 7.1 G/DL (5.7-8.2)
== END ==
LOC: M SHH 16:44
PROVIDERS: ATTEND Nurse Practitioner Family
DX: T82.7XXA Infection and inflammatory reaction due to other cardiac and vascular devices, implants and grafts, initial encounter (principal)

== ENCOUNTER → 2024-11-24 | Outpatient (REF) | payer MEDICARE ==
[~2024-11-24] MED LIST changes: +DIFI200T PO; +VANC125C3 PO
[2024-11-24 17:59] LABS: BASO % 0.2 % (0.0-1.0); EOS % 0.2 % (0.0-3.0); HEMATOCRIT 37.6 % (42.0-52.0); HEMOGLOBIN 11.3 g/dl (13.5-17.5); LYMPH # 0.5 10^3/uL (1.5-5.0); LYMPH % 3.8 % (24.0-44.0); MEAN CORPUSCULAR HEMOGLOBIN 23.5 pg (27.0-33.0); MEAN CORPUSCULAR HGB CONC 30.1 g/dl (32.0-36.5); MEAN CORPUSCULAR VOLUME 78.3 fl (80.0-96.0); MONO # 0.9 10^3/uL (0.0-0.8); MONO % 6.6 % (2.0-8.0); NEUTROPHILS # 11.6 10^3/uL (1.5-8.5); NEUTROPHILS % 88.6 % (36.0-66.0); PLATELET COUNT, AUTOMATED 337 10^3/uL (150-450); WHITE BLOOD COUNT 13.1 10^3/uL (4.0-10.0)
[2024-11-24 18:20] LABS: CALCIUM LEVEL 8.6 MG/DL (8.3-10.6); CREATININE FOR GFR 2.27 MG/DL (0.70-1.30); GLOMERULAR FILTRATION RATE 29.8 (>42); POTASSIUM SERUM 4.6 MMOL/L (3.5-5.1)
== END ==
LOC: M SHH 17:24
PROVIDERS: ATTEND Internal Medicine Cardiovascular Disease
DX: T82.7XXA Infection and inflammatory reaction due to other cardiac and vascular devices, implants and grafts, initial encounter (principal); A09 Infectious gastroenteritis and colitis, unspecified; Y83.1 Surgical operation with implant of artificial internal device as the cause of abnormal reaction of the patient, or of later complication, without mention of misadventure at the time of the procedure

== ENCOUNTER 2024-11-25 12:48 | Emergency (ER) | payer MEDICARE ==
[~2024-11-25] VITALS: Ht 167.6 cm; Wt 68.3 kg
[~2024-11-25 12:48] MED LIST changes: -DIFI200T PO; -VANC125C3 PO
[2024-11-25 12:51] VITALS: TEMP 98.3
[2024-11-25 13:54] LABS: BASO % 0.2 % (0.0-1.0); EOS % 0.1 % (0.0-3.0); HEMATOCRIT 36.1 % (42.0-52.0); HEMOGLOBIN 11.1 g/dl (13.5-17.5); LYMPH # 0.4 10^3/uL (1.5-5.0); LYMPH % 2.7 % (24.0-44.0); MEAN CORPUSCULAR HEMOGLOBIN 23.6 pg (27.0-33.0); MEAN CORPUSCULAR HGB CONC 30.7 g/dl (32.0-36.5); MEAN CORPUSCULAR VOLUME 76.6 fl (80.0-96.0); MONO # 0.9 10^3/uL (0.0-0.8); MONO % 6.6 % (2.0-8.0); NEUTROPHILS # 12.1 10^3/uL (1.5-8.5); PLATELET COUNT, AUTOMATED 288 10^3/uL (150-450); RED BLOOD COUNT 4.71 10^6/uL (4.30-6.10); WHITE BLOOD COUNT 13.4 10^3/uL (4.0-10.0)
[2024-11-25 14:06] LABS: INR 2.25; PROTHROMBIN TIME 24.9 SECONDS (12.5-14.5)
[2024-11-25 14:14] LABS: ALBUMIN 2.3 G/DL (3.2-5.2); BILIRUBIN,DIRECT 0.2 MG/DL (<0.4); BILIRUBIN,TOTAL 0.5 MG/DL (0.3-1.2); TOTAL PROTEIN 6.8 G/DL (5.7-8.2)
[2024-11-25 14:55] LABS: CALCIUM LEVEL 8.5 MG/DL (8.3-10.6); CREATININE FOR GFR 2.24 MG/DL (0.70-1.30); GLOMERULAR FILTRATION RATE 30.3 (>42); POTASSIUM SERUM 5.5 MMOL/L (3.5-5.1)
[2024-11-25 16:08] VITALS: BP 144/61; O2SAT 96
[2024-11-25] MEDS ORDERED: DIFI200T PO (16:38)
[2024-11-25] MEDS ORDERED: VANC125C3 PO (16:54)
== END 2024-11-25 17:04 | disposition home or self-care (01) ==
LOC: M ED 12:48
DX: R04.0 Epistaxis (principal); I45.81 Long QT syndrome; T82.7XXA Infection and inflammatory reaction due to other cardiac and vascular devices, implants and grafts, initial encounter; Y83.1 Surgical operation with implant of artificial internal device as the cause of abnormal reaction of the patient, or of later complication, without mention of misadventure at the time of the procedure; A04.72 Enterocolitis due to Clostridium difficile, not specified as recurrent; Z79.1 Long term (current) use of non-steroidal anti-inflammatories (NSAID); Z79.01 Long term (current) use of anticoagulants; Z79.899 Other long term (current) drug therapy

== ENCOUNTER → 2024-11-25 | Outpatient (REF) | payer MEDICARE | LOC: M LAB REF 12:49 | PROVIDERS: ATTEND Internal Medicine Cardiovascular Disease | DX: T82.7XXA Infection and inflammatory reaction due to other cardiac and vascular devices, implants and grafts, initial encounter (principal); Y83.1 Surgical operation with implant of artificial internal device as the cause of abnormal reaction of the patient, or of later complication, without mention of misadventure at the time of the procedure; A09 Infectious gastroenteritis and colitis, unspecified; A04.72 Enterocolitis due to Clostridium difficile, not specified as recurrent ==

== ENCOUNTER → 2024-12-01 | Outpatient (REF) | payer MEDICARE ==
[~2024-12-01] MED LIST changes: +DIFI200T PO; +VANC125C3 PO
[2024-12-01 17:13] LABS: BASO % 0.4 % (0.0-1.0); EOS # 0.2 10^3/uL (0.0-0.5); EOS % 1.6 % (0.0-3.0); HEMATOCRIT 32.8 % (42.0-52.0); HEMOGLOBIN 9.7 g/dl (13.5-17.5); LYMPH # 0.6 10^3/uL (1.5-5.0); LYMPH % 5.4 % (24.0-44.0); MEAN CORPUSCULAR HGB CONC 29.6 g/dl (32.0-36.5); MEAN CORPUSCULAR VOLUME 77.7 fl (80.0-96.0); MONO % 9.2 % (2.0-8.0); NEUTROPHILS # 8.6 10^3/uL (1.5-8.5); NEUTROPHILS % 82.6 % (36.0-66.0); PLATELET COUNT, AUTOMATED 263 10^3/uL (150-450); RED BLOOD COUNT 4.22 10^6/uL (4.30-6.10); WHITE BLOOD COUNT 10.4 10^3/uL (4.0-10.0)
[2024-12-01 17:46] LABS: URIC ACID 7.4 MG/DL (3.7-9.2)
[2024-12-01 17:50] LABS: ALBUMIN 2.2 G/DL (3.2-5.2); BILIRUBIN,TOTAL 0.4 MG/DL (0.3-1.2); CALCIUM LEVEL 8.2 MG/DL (8.3-10.6); CREATININE FOR GFR 2.28 MG/DL (0.70-1.30); DIGOXIN LEVEL 0.4 NG/ML (0.8-2.0); GLOMERULAR FILTRATION RATE 29.6 (>42); PHOSPHORUS LEVEL 3.4 MG/DL (2.4-5.1); POTASSIUM SERUM 4.3 MMOL/L (3.5-5.1); TOTAL PROTEIN 6.1 G/DL (5.7-8.2)
== END ==
LOC: M LAB REF 16:32
PROVIDERS: ATTEND Internal Medicine
DX: E78.00 Pure hypercholesterolemia, unspecified (principal); I48.21 Permanent atrial fibrillation; M10.9 Gout, unspecified; I50.42 Chronic combined systolic (congestive) and diastolic (congestive) heart failure; N18.4 Chronic kidney disease, stage 4 (severe); Z79.01 Long term (current) use of anticoagulants

== ENCOUNTER → 2024-12-12 | Outpatient (CLI) | payer MEDICARE | LOC: M WUC 10:15 | PROVIDERS: ATTEND Nurse Practitioner Family | DX: J90 Pleural effusion, not elsewhere classified (principal); I50.42 Chronic combined systolic (congestive) and diastolic (congestive) heart failure; R06.00 Dyspnea, unspecified; Z95.0 Presence of cardiac pacemaker ==

== ENCOUNTER → 2024-12-31 | Outpatient (REF) | payer MEDICARE ==
[~2024-12-31] MED LIST changes: +VANC125C13 PO; -VANC125C3 PO
[2024-12-31 18:23] LABS: PERCENT SATURATION 5.9 % (19.7-50.0)
[2024-12-31 18:27] LABS: FERRITIN 22.4 NG/ML (10.5-307.3)
== END ==
LOC: M LAB REF 17:09
PROVIDERS: ATTEND Nurse Practitioner Family
DX: D50.9 Iron deficiency anemia, unspecified (principal)

== ENCOUNTER → 2024-12-31 | Outpatient (CLI) | payer MEDICARE | LOC: M WUC 09:40 | PROVIDERS: ATTEND Nurse Practitioner Family | DX: I50.42 Chronic combined systolic (congestive) and diastolic (congestive) heart failure (principal); R06.00 Dyspnea, unspecified; D50.9 Iron deficiency anemia, unspecified ==

== ENCOUNTER → 2025-01-07 | Outpatient (CLI) | payer MEDICARE ==
[2025-01-07 12:25] VITALS: TEMP 97.8
[2025-01-07 14:45] VITALS: BP 123/58; O2SAT 100
== END ==
LOC: M IRPRO 12:03
PROVIDERS: ATTEND Nurse Practitioner Family
DX: J90 Pleural effusion, not elsewhere classified (principal)

== ENCOUNTER → 2025-01-28 | Outpatient (CLI) | payer MEDICARE ==
[~2025-01-28] VITALS: Ht 167.6 cm; Wt 63.1 kg
[~2025-01-28] MED LIST changes: +ALBUTEROL SULFATE 2.5MG/0.5ML INH NEB SOLN INH PRN; +EPINEPHrine INJ 1 MG/ML 1ML AMP IM PRN; +NS (Normal Saline) 0.9% 1,000 ML IV SCH; +diphenhydrAMINE 50MG/ML VIAL IV PRN; +methylPREDNISolone 125MG 2ML VIAL IV PRN
[2025-01-28 13:00] VITALS: BP 118/58; O2SAT 100
[2025-01-28] MEDS: FERRIC CARBOXYMALTOSE 750 MG (VIAL MATE) IN 100ML NS IV ONE (13:25)
[2025-01-28 14:10] VITALS: BP 113/55; O2SAT 100
== END ==
LOC: M INFU 12:54
PROVIDERS: ATTEND Nurse Practitioner Family
DX: D50.9 Iron deficiency anemia, unspecified (principal)
CPT/HCPCS: 96365; J1439

== ENCOUNTER 2025-02-05 12:15 | Outpatient (CLI) | payer MEDICARE ==
[2025-02-05 12:15] VITALS: BP 130/67; O2SAT 98
[~2025-02-05 12:15] MED LIST changes: +ALBUTEROL SULFATE 2.5MG/0.5ML INH CONCENTRATE NEB SOLN INH PRN; -ALBUTEROL SULFATE 2.5MG/0.5ML INH NEB SOLN INH PRN; -NS (Normal Saline) 0.9% 1,000 ML IV SCH
[2025-02-05] MEDS: FERRIC CARBOXYMALTOSE 750 MG (VIAL MATE) IN 100ML NS IV ONE (12:26)
[2025-02-05] MEDS ORDERED: NS (Normal Saline) 0.9% 1,000 ML IV SCH (12:30)
== END 2025-02-05 12:50 ==
LOC: M INFU 12:15
PROVIDERS: ATTEND Nurse Practitioner Family
DX: D50.9 Iron deficiency anemia, unspecified (principal)
CPT/HCPCS: 96365; J1439

== ENCOUNTER → 2025-02-24 | Outpatient (REF) | payer MEDICARE ==
[~2025-02-24] MED LIST changes: -ALBUTEROL SULFATE 2.5MG/0.5ML INH CONCENTRATE NEB SOLN INH PRN; -EPINEPHrine INJ 1 MG/ML 1ML AMP IM PRN; -diphenhydrAMINE 50MG/ML VIAL IV PRN; -methylPREDNISolone 125MG 2ML VIAL IV PRN
[2025-02-24 19:03] LABS: ALBUMIN 3.1 G/DL (3.2-5.2); BILIRUBIN,TOTAL 0.5 MG/DL (0.3-1.2); CALCIUM LEVEL 9.2 MG/DL (8.3-10.6); CHOLESTEROL RISK RATIO 2.68 (<5); CREATININE FOR GFR 2.91 MG/DL (0.70-1.30); DIGOXIN LEVEL 0.5 NG/ML (0.8-2.0); GLOMERULAR FILTRATION RATE 21.3 (>42); LDL CHOLESTEROL 66.8 MG/DL (<100); POTASSIUM SERUM 4.2 MMOL/L (3.5-5.1); TOTAL PROTEIN 7.6 G/DL (5.7-8.2)
[2025-02-24 19:04] LABS: URIC ACID 9.9 MG/DL (3.7-9.2)
[2025-02-24 19:10] LABS: BASO % 0.5 % (0.0-1.0); EOS # 0.1 10^3/uL (0.0-0.5); EOS % 1.5 % (0.0-3.0); HEMATOCRIT 37.9 % (42.0-52.0); HEMOGLOBIN 11.5 g/dl (13.5-17.5); LYMPH # 0.5 10^3/uL (1.5-5.0); LYMPH % 7.5 % (24.0-44.0); MEAN CORPUSCULAR HEMOGLOBIN 25.5 pg (27.0-33.0); MEAN CORPUSCULAR HGB CONC 30.3 g/dl (32.0-36.5); MONO # 0.8 10^3/uL (0.0-0.8); MONO % 13.9 % (2.0-8.0); NEUTROPHILS # 4.6 10^3/uL (1.5-8.5); NEUTROPHILS % 76.1 % (36.0-66.0); PLATELET COUNT, AUTOMATED 167 10^3/uL (150-450); RED BLOOD COUNT 4.51 10^6/uL (4.30-6.10)
== END ==
LOC: M LABDRAWC 17:30
PROVIDERS: ATTEND Internal Medicine
DX: E78.00 Pure hypercholesterolemia, unspecified (principal); I48.21 Permanent atrial fibrillation; M10.9 Gout, unspecified

== ENCOUNTER → 2025-02-25 | Outpatient (CLI) | payer MEDICARE | LOC: M WUC 14:45 | PROVIDERS: ATTEND Physician Assistant Medical | DX: M19.141 Post-traumatic osteoarthritis, right hand (principal) ==

== ENCOUNTER → 2025-03-02 | Outpatient (CLI) | payer MEDICARE | LOC: M WUC 08:16 | PROVIDERS: ATTEND Internal Medicine Critical Care Medicine | DX: J90 Pleural effusion, not elsewhere classified (principal) ==

== ENCOUNTER 2025-05-07 11:32 | Outpatient (CLI) | payer MEDICARE ==
[~2025-05-07] VITALS: Ht 165.1 cm; Wt 64.4 kg
[2025-05-07 12:12] LABS: PLATELET COUNT, AUTOMATED 270 10^3/uL (150-450)
[2025-05-07 12:19] LABS: ERYTHROCYTE SEDIMENTATION RATE 120 mm/hr (0-20)
[2025-05-07 12:45] VITALS: BP 131/66; O2SAT 99
[2025-05-07 12:47] LABS: C REACTIVE PROTEIN QUANTITATIV 2.67 MG/DL (<1.0); CALCIUM LEVEL 8.6 MG/DL (8.3-10.6); CARBON DIOXIDE LEVEL 25.0 MMOL/L (20-31); CHLORIDE LEVEL 105.0 MMOL/L (98-107); CREATININE FOR GFR 2.04 MG/DL (0.70-1.30); GLOMERULAR FILTRATION RATE 32.3 (>35); POTASSIUM SERUM 3.6 MMOL/L (3.5-5.1); SODIUM LEVEL 142.0 MMOL/L (136-145)
[2025-05-07] MEDS: DALBAVANCIN 1,125 MG in D5W 250 ML IV ONE (13:13)
[2025-05-07 13:52] VITALS: BP 128/57; O2SAT 99
== END 2025-05-07 13:55 | disposition home or self-care (01) ==
LOC: M INFU 11:32
PROVIDERS: ATTEND Internal Medicine Infectious Disease
DX: A41.9 Sepsis, unspecified organism (principal); M01.X11 Direct infection of right shoulder in infectious and parasitic diseases classified elsewhere; M25.411 Effusion, right shoulder; R50.9 Fever, unspecified; D64.9 Anemia, unspecified
CPT/HCPCS: 36415; 80048; 83550; 85027; 85652; 86140; 96365; J0875

== ENCOUNTER → 2025-05-07 | Outpatient (REF) | payer MEDICARE ==
[~2025-05-07] MED LIST changes: +ASCO500T PO; +ELIQ2.5T PO; +FERR325T3 PO; +RISATAB3 PO; +SPIR-10 PO; +TORS20TA2 PO; +[UNRECOGNIZED DRUG - CODE] PO
[2025-05-07 16:14] LABS: IRON (FE) 76.0 UG/DL (65-175)
[2025-05-07 16:15] LABS: C REACTIVE PROTEIN QUANTITATIV 2.72 MG/DL (<1.0); PERCENT SATURATION 30.9 % (19.7-50.0)
== END ==
LOC: M LAB REF 14:03
PROVIDERS: ATTEND Internal Medicine
DX: M25.411 Effusion, right shoulder (principal); R50.9 Fever, unspecified; D64.9 Anemia, unspecified

== ENCOUNTER → 2025-05-19 | Outpatient (REF) | payer MEDICARE ==
[2025-05-19 18:47] LABS: BASO # 0.0 10^3/uL (0.0-0.2); BASO % 0.8 % (0.0-1.0); EOS # 0.1 10^3/uL (0.0-0.5); EOS % 3.3 % (0.0-3.0); LYMPH # 0.5 10^3/uL (1.5-5.0); LYMPH % 13.5 % (24.0-44.0); MONO # 0.4 10^3/uL (0.0-0.8); MONO % 9.5 % (2.0-8.0); NEUTROPHILS # 2.9 10^3/uL (1.5-8.5); NEUTROPHILS % 72.1 % (36.0-66.0); PLATELET COUNT, AUTOMATED 175 10^3/uL (150-450)
[2025-05-19 19:03] LABS: ERYTHROCYTE SEDIMENTATION RATE 79 mm/hr (0-20)
== END ==
LOC: M LAB REF 17:41
PROVIDERS: ATTEND Internal Medicine Infectious Disease
DX: M00.011 Staphylococcal arthritis, right shoulder (principal)

== ENCOUNTER → 2025-06-08 | Outpatient (REF) | payer MEDICARE ==
[2025-06-08 13:17] LABS: C REACTIVE PROTEIN QUANTITATIV 0.87 MG/DL (<1.0)
[2025-06-08 13:18] LABS: DIGOXIN LEVEL 0.6 NG/ML (0.8-2.0); IRON (FE) 78.0 UG/DL (65-175); PERCENT SATURATION 27.2 % (19.7-50.0)
== END ==
LOC: M LAB REF 12:08
PROVIDERS: ATTEND Internal Medicine
DX: M25.511 Pain in right shoulder (principal); D63.1 Anemia in chronic kidney disease; I48.21 Permanent atrial fibrillation

== ENCOUNTER → 2025-06-11 | Outpatient (REF) | payer MEDICARE ==
[2025-06-11 18:20] LABS: BASO # 0.0 10^3/uL (0.0-0.2); BASO % 0.9 % (0.0-1.0); EOS # 0.2 10^3/uL (0.0-0.5); EOS % 3.8 % (0.0-3.0); LYMPH # 0.6 10^3/uL (1.5-5.0); LYMPH % 14.9 % (24.0-44.0); MONO # 0.5 10^3/uL (0.0-0.8); MONO % 10.9 % (2.0-8.0); NEUTROPHILS # 2.9 10^3/uL (1.5-8.5); NEUTROPHILS % 69.0 % (36.0-66.0); PLATELET COUNT, AUTOMATED 140 10^3/uL (150-450)
[2025-06-11 18:47] LABS: ALT/SGPT 21.0 U/L (7.0-40); AST/SGOT 30.0 U/L (<34); CALCIUM LEVEL 8.8 MG/DL (8.3-10.6); CARBON DIOXIDE LEVEL 23.0 MMOL/L (20-31); CHLORIDE LEVEL 104.0 MMOL/L (98-107); CREATININE FOR GFR 2.35 MG/DL (0.70-1.30); GLOMERULAR FILTRATION RATE 27.3 (>35); POTASSIUM SERUM 3.7 MMOL/L (3.5-5.1); SODIUM LEVEL 142.0 MMOL/L (136-145)
== END ==
LOC: M LABDRAWC 17:15
PROVIDERS: ATTEND Specialist
DX: E85.9 Amyloidosis, unspecified (principal)

== ENCOUNTER → 2025-06-23 | Outpatient (CLI) | payer MEDICARE | LOC: M WUC 10:47 | PROVIDERS: ATTEND Internal Medicine Critical Care Medicine | DX: J90 Pleural effusion, not elsewhere classified (principal) ==

== ENCOUNTER → 2025-07-15 | Outpatient (CLI) | payer MEDICARE | LOC: M WUC 11:42 | PROVIDERS: ATTEND Specialist | DX: R22.41 Localized swelling, mass and lump, right lower limb (principal); Z53.9 Procedure and treatment not carried out, unspecified reason ==

== ENCOUNTER → 2025-07-15 | Outpatient (CLI) | payer MEDICARE | LOC: M CLY 14:06 | PROVIDERS: ATTEND Specialist | DX: R22.41 Localized swelling, mass and lump, right lower limb (principal) ==

== ENCOUNTER → 2025-08-19 | Outpatient (CLI) | payer MEDICARE | LOC: M SLEEP HO 10:54 | PROVIDERS: ATTEND Internal Medicine Critical Care Medicine | DX: G47.30 Sleep apnea, unspecified (principal) ==

== ENCOUNTER → 2025-09-10 | Outpatient (REF) | payer MEDICARE ==
[~2025-09-10] MED LIST changes: +METO1TAB32
[2025-09-10 18:17] LABS: BASO # 0.1 10^3/uL (0.0-0.2); BASO % 1.1 % (0.0-1.0); EOS # 0.1 10^3/uL (0.0-0.5); EOS % 2.7 % (0.0-3.0); LYMPH # 0.6 10^3/uL (1.5-5.0); LYMPH % 13.6 % (24.0-44.0); MONO # 0.5 10^3/uL (0.0-0.8); MONO % 12.0 % (2.0-8.0); NEUTROPHILS # 3.2 10^3/uL (1.5-8.5); NEUTROPHILS % 70.2 % (36.0-66.0); PLATELET COUNT, AUTOMATED 122 10^3/uL (150-450)
[2025-09-10 18:23] LABS: ALT/SGPT 19.0 U/L (7.0-40); AST/SGOT 34.0 U/L (<34); CALCIUM LEVEL 9.3 MG/DL (8.3-10.6); CARBON DIOXIDE LEVEL 29.0 MMOL/L (20-31); CHLORIDE LEVEL 103.0 MMOL/L (98-107); CREATININE FOR GFR 2.75 MG/DL (0.70-1.30); GLOMERULAR FILTRATION RATE 22.6 (>35); POTASSIUM SERUM 4.3 MMOL/L (3.5-5.1); SODIUM LEVEL 138.0 MMOL/L (136-145)
[2025-09-14 14:16] LABS: FREE KAPPA LIGHT CHAINS SERUM 79.7 mg/L (3.3-19.4); FREE LAMBDA LIGHT CHAINS SERUM 66.2 mg/L (5.7-26.3); KAPPA/LAMBDA RATIO SERUM 1.2 (0.26-1.65)
== END ==
LOC: M LABDRAWC 17:23
PROVIDERS: ATTEND Specialist
DX: E85.9 Amyloidosis, unspecified (principal)

== ENCOUNTER → 2025-11-03 | Outpatient (REF) | payer MEDICARE ==
[2025-11-03 18:06] LABS: BASO # 0.0 10^3/uL (0.0-0.2); BASO % 1.0 % (0.0-1.0); EOS # 0.1 10^3/uL (0.0-0.5); EOS % 2.6 % (0.0-3.0); LYMPH # 0.7 10^3/uL (1.5-5.0); LYMPH % 16.0 % (24.0-44.0); MONO # 0.5 10^3/uL (0.0-0.8); MONO % 11.9 % (2.0-8.0); NEUTROPHILS # 2.9 10^3/uL (1.5-8.5); NEUTROPHILS % 68.0 % (36.0-66.0); PLATELET COUNT, AUTOMATED 127 10^3/uL (150-450)
[2025-11-03 18:08] LABS: ALT/SGPT 17.0 U/L (7.0-40); AST/SGOT 33.0 U/L (<34); CALCIUM LEVEL 9.4 MG/DL (8.3-10.6); CARBON DIOXIDE LEVEL 27.0 MMOL/L (20-31); CHLORIDE LEVEL 103.0 MMOL/L (98-107); CREATININE FOR GFR 2.64 MG/DL (0.70-1.30); DIGOXIN LEVEL 0.6 NG/ML (0.8-2.0); GLOMERULAR FILTRATION RATE 23.7 (>35); MAGNESIUM LEVEL 1.9 MG/DL (1.8-2.4); POTASSIUM SERUM 4.1 MMOL/L (3.5-5.1); SODIUM LEVEL 139.0 MMOL/L (136-145)
== END ==
LOC: M LABDRAWC 17:15
PROVIDERS: ATTEND Internal Medicine
DX: I13.0 Hypertensive heart and chronic kidney disease with heart failure and stage 1 through stage 4 chronic kidney disease, or unspecified chronic kidney disease (principal); I50.42 Chronic combined systolic (congestive) and diastolic (congestive) heart failure; Z79.01 Long term (current) use of anticoagulants